=== PATIENT | male | born 1980 | race Caucasian/White ===

== ENCOUNTER 2018-11-11 00:06 | Inpatient (IN) | payer OTHER ==
[2018-11-11] VITALS (46 sets, daily range): BP systolic 77–128; BP diastolic 49–77; PULSE 85–126; RESP 6–20; Ht 175.3 cm; Wt 83.6 kg
[~2018-11-11] VITALS: Ht 175.3 cm; Wt 83.6 kg
[2018-11-11] MEDS ORDERED: ONDANSETRON 4 MG INJ IV STA (00:23)
[2018-11-11] MEDS ORDERED: morphine 4 MG/ML VIAL IV STA ×2 (00:23→01:14)
[2018-11-11] MEDS ORDERED: SOD CHLORIDE 0.9% 100 ML ONE (00:55)
[2018-11-11] MEDS ORDERED: IOHEXOL 100 ML ONE (00:55)
[2018-11-11] MEDS ORDERED: ETOMIDATE 20 MG INJ ONE (01:57)
[2018-11-11] MEDS ORDERED: PROPOFOL 100 ML ONE (02:09)
[2018-11-11] MEDS ORDERED: PROPOFOL 100 ML IV STA (02:09)
[2018-11-11] MEDS ORDERED: SODIUM CHLORIDE 0.9% 1L BAG IV* STA (02:24)
--- NOTE | 2018-11-11 02:24 | OPPN ---
Date/Time of Note Date/Time of Note DATE: 11/11/18 TIME: 02:18 Anesthesia Follow up Anesthesia Follow up Last documented vital signs Vital Signs Date Temp Pulse Resp B/P (MAP) Pulse Ox O2 O2 Flow FiO2 Time Delivery Rate 11/11/18 100.5 132 18 90/60 (70) 97 00:12 Respiratory function: WNL Cardiovascular function: WNL Comments Anesthesia was called for mdifficult intubation.Expanding neck hematoma after neck lift. pt has SOB, difficulty breathing. intubate by glidescope 4 ETT 7.5 pre o2, difficult to open the month.grade 4 , ETT was inserted BBB and co2 positive. VS stable JOSE RAUL OLIVARES MD Nov 11, 2018 02:24
--- NOTE | 2018-11-11 02:25 | OPPN ---
Date/Time of Note Date/Time of Note DATE: 11/11/18 TIME: 02:24 Event Note difficult intubation in ER. upper tooth chipped the top o f tooth over metal took off. cut my index finger. JOSE RAUL OLIVARES MD Nov 11, 2018 02:25
--- NOTE | 2018-11-11 02:42 | ERD ---
ER Documentation Chief Complaint Chief Complaint bleeding from s/p neck surgery HPI This is a 38-year-old male who presents to the emergency room for evaluation of bleeding from surgical wound. The patient states that he had a neck lift surgery done on October. He states that he had a done at [facility] and it was done by a plastic surgeon Dr. Deleon. He states that today he was at home and had a lot of pain that he noticed on the right jaw, he states that the pain started around 10 PM and he took a shower and when he was in the shower he noted a lot of bleeding from the suture site on the right. The patient then stated that his pain increased dramatically and he noticed a large amount of swelling on the right side of his face and came to the ER. The patient denies any fevers or chest pain or shortness of breath at this time. ROS All systems reviewed and are negative except as per history of present illness. Allergies Allergies: Coded Allergies: cephalexin (Verified Allergy, Unknown, 11/11/18) PMhx/Soc Medical and Surgical Hx: pt denies Medical Hx, pt denies Surgical Hx History of Surgery: No Anesthesia Reaction: No Hx Neurological Disorder: No Hx Respiratory Disorders: No Hx Cardiac Disorders: No Hx Psychiatric Problems: No Hx Miscellaneous Medical Probl: No Hx Alcohol Use: No Hx Substance Use: No Hx Tobacco Use: No Smoking Status: Never smoker Physical Exam Vitals Vital Signs Date Temp Pulse Resp B/P (MAP) Pulse Ox O2 O2 Flow FiO2 Time Delivery Rate 11/11/18 Nasal 02:31 Cannula 11/11/18 100.5 132 18 90/60 (70) 97 00:12 Physical Exam INITIAL VITAL SIGNS: Reviewed by me GENERAL: The patient is well developed male, moderate distress HEENT: Large right-sided submandibular hematoma with dehiscence of the wound noted at the posterior portion of the right ear, no pulsatile bleeding noted. Dry mucous membranes, pupils equal, round, and reactive to light. EOMI. There is no scleral icterus. NECK: C-spine is soft and supple, there is no meningismus. There is no cervical lymphadenopathy. LUNGS: Clear to auscultation bilaterally. There are no rales, wheezes or rhonchi. HEART: Tachycardic, no murmurs, clicks, rubs or gallops. ABDOMEN: Soft, non-tender, non-distended. There are bowel sounds in all four quadrants. No rebound or guarding. EXTREMITIES: There is no peripheral cyanosis or edema. No focal swelling or erythema. NEUROLOGICAL: The patient moves all four extremities with 5/5 strength. Cranial nerves II - XII are intact. Normal gait. Alert and oriented SKIN: There is no apparent rash or petechiae. HEME/LYMPHATIC: There is no evidence of excessive bruising or lymphedema. PSYCHIATRIC: The patient does not appear anxious or depressed. Result Diagram: 11/11/18 0000 11/11/18 0000 Results 24 hrs Laboratory Tests Test 11/11/18 00:00 White Blood Count 23.1 10^3/ul Red Blood Count 4.78 10^6/ul Hemoglobin 14.0 g/dl Hematocrit 43.9 % Mean Corpuscular Volume 91.8 fl Mean Corpuscular Hemoglobin 29.3 pg Mean Corpuscular Hemoglobin Concent 31.9 g/dl Red Cell Distribution Width 13.7 % Platelet Count 493 10^3/UL Mean Platelet Volume 8.9 fl Immature Granulocytes % 2.200 % Neutrophils % 66.9 % Lymphocytes % 15.6 % Monocytes % 14.1 % Eosinophils % 0.4 % Basophils % 0.8 % Nucleated Red Blood Cells % 0.0 /100WBC Immature Granulocytes # 0.520 10^3/ul Neutrophils # 15.5 10^3/ul Lymphocytes # 3.6 10^3/ul Monocytes # 3.3 10^3/ul Eosinophils # 0.1 10^3/ul Basophils # 0.2 10^3/ul Nucleated Red Blood Cells # 0.0 10^3/ul Prothrombin Time 11.3 Sec Prothrombin Time Ratio 0.9 INR International Normalized Ratio 0.81 Activated Partial Thromboplast Time 21.2 Sec Sodium Level 139 mmol/L Potassium Level 5.2 mmol/L Chloride Level 95 mmol/L Carbon Dioxide Level 31 mmol/L Anion Gap 13 Blood Urea Nitrogen 13 mg/dl Creatinine 1.09 mg/dl Est Glomerular Filtrat Rate mL/min > 60 mL/min Glucose Level 116 mg/dl Calcium Level 9.9 mg/dl Total Bilirubin 0.7 mg/dl Direct Bilirubin 0.00 mg/dl Indirect Bilirubin 0.7 mg/dl Aspartate Amino Transf (AST/SGOT) 88 IU/L Alanine Aminotransferase (ALT/SGPT) 104 IU/L Alkaline Phosphatase 74 IU/L Total Protein 7.9 g/dl Albumin 4.4 g/dl Globulin 3.50 g/dl Albumin/Globulin Ratio 1.25 Current Medications Medications Dose Sig/Nilo Start Time Status Last (Trade) Ordered Route PRN Stop Time Admin Dose Reason Admin Morphine 4 mg ONCE STAT 11/11/18 DC 11/11/18 Sulfate IV 00:23 01:02 (morphine) 11/11/18 00:25 Ondansetron 4 mg ONCE STAT 11/11/18 DC 11/11/18 HCl (Zofran IV 00:23 01:02 Inj) 11/11/18 00:25 IV Flush 10 ml STK-MED 11/11/18 DC (NS 10 ml) ONCE .ROUTE 00:55 11/11/18 00:56 Sodium 100 ml @ ud STK-MED 11/11/18 DC Chloride ONCE .ROUTE 00:55 11/11/18 00:56 Iohexol 100 ml @ ud STK-MED 11/11/18 DC ONCE .ROUTE 00:55 11/11/18 00:56 Morphine 4 mg ONCE STAT 11/11/18 DC 11/11/18 Sulfate IV 01:14 01:40 (morphine) 11/11/18 01:15 Etomidate 20 mg STK-MED 11/11/18 DC (Amidate) ONCE .ROUTE 01:57 11/11/18 01:58 Propofol 100 ml @ ud STK-MED 11/11/18 DC ONCE .ROUTE 02:09 11/11/18 02:10 Propofol 100 ml @ ONCE STAT 11/11/18 2.182 mls/ IV 02:09 hr 11/12/18 23:58 Sodium 1,000 ml @ [id number] IV 11/11/18 Chloride 80 mls/hr 02:20 40 mg DAILY@06 11/11/18 Pantoprazole IV 06:00 (Protonix Iv) Sodium 2,180 ml BOLUS OVER 2 11/11/18 DC Chloride HOURS STAT 02:24 (NS) IV* 11/11/18 02:25 Vancomycin VANCOMYCIN PER 11/11/18 HCl (Vanco PER PHARMACY PROTOCOL XX 04:00 Iv Per Pharmacy) Piperacillin 100 ml @ Q6 IVPB 11/11/18 UNV Sod/ 200 mls/hr 02:30 Tazobactam Sod Procedures/MDM CTA neck: 1. Extensive soft tissue collection compatible with a superficial subcutaneous hemorrhage tracking along the right neck from the level of the inferior inferiorly to the submandibular region to the left anterior body of the mandible with mass effect on adjacent structures. 2. Major arteries including the right common and internal carotid arteries are intact. Several peripheral branches of the right external carotid artery along the medial aspect of the collection. 3. There is hyperdense contrast extravasation along the medial margin of the collection extending to a superficial catheter adjacent to the right ear with appearance consistent with an open wound. Although there are peripheral branches of the external carotid artery abutting the hematoma, the IV contrast injection for the study was in the right upper extremity and there is reflux of hyperdense contrast superiorly into branches of the right external jugular vein along the medial aspect of the hematoma. Source of the hemorrhage may be due to a laceration of the branches of the external carotid artery versus the right external jugular vein. This 38-year-old male presents to the emergency room for evaluation of bleeding from the surgical site. The patient did have a cosmetic neck lift done on November [address] [place] [address] Deleon. On my exam the patient had a large hematoma on the right some mandibular region. The patient was complaining of a lot of pain, pill pair, and was tachycardic with dry mucous membranes. 2 IV lines were est ablished the patient was given IV fluids, he was given morphine for pain. I did try to get a hold of this patient's cosmetic surgeon, Dr. Deleon. We did call him and spoke to the nurse practitioner who was certified pediatric nurse practitioner. I did speak to her and her name was Lexis. I let her know that this patient was here and that he did have a large hematoma. She states that she will get in touch with Dr. Deleon and call us back. While we are awaiting callback from Dr. Deleon this patient began to complain of increasing pain and difficulty swallowing. The patient did have what appeared to be larger hematoma with some some pulsatile bleeding noted at the right external auditory canal. I did call anesthesia and Dr. Churchill was able for consult and did perform a bedside intubation using go. Please see procedure note. I was able to contact our ENT physician certified pediatric nurse practitioner Dr. Matute and explained that the patient does have a large expanding right-sided submandibular hematoma with difficulty swallowing and required intubation. He states that he will come evaluate the patient and likely take the patient to the operating room. Please see detail time sheets below. I was made aware that the patient has a slight fever, and a code sepsis was called. The patient was on broad- spectrum antibiotics. Hemoglobin is stable at this time, however the patient does have a white blood cell count greater than 20,000. This could be postsurgical or reactive or infectious 1242: Spoke to nurse practitioner Lexis and had notified her of the patient who is in the emergency room and notified her that we will need to speak to Dr. Deleon in regards to this postop complication 0141: Repeat page out to Dr. Deleon with no callback at this time 0150: Patient complaining of tightness and difficulty swallowing, I did note the hematoma was larger than when he arrived in the emergency room and there was now some pulsatile bleeding noted. The decision was made to intubate, anesthesia paged. She is aware and comfortable with her plan of care 0205: Patient intubated at bedside by 0207: Spoke with Dr. Kim who agrees to accept the patient for admission 0214: Spoke with Dr. Matute, ENT on-call physician, and have explained this patient's condition. He agrees to evaluate the patient and would like the senior data warehouse architect to call the operating room team to prepare the OR 0249: Patient's plastic surgeon Dr. Deleon was called back and he is aware now this patient condition and states that he will come evaluate the patient at the bedside. Critical Care: Excluding all billable procedures Time: 80 minutes Treatments/Evaluations: Close monitoring and treatment of unstable vital signs, cardiorespiratory, and neurologic status, while maintaining tight balance of fluid, respiratory, and cardiac interventions. Departure Diagnosis: Primary Impression: Hematoma of neck Additional Impressions: Postoperative complication SIRS (systemic inflammatory response syndrome) Condition: Critical JAYSHREEKENNYEssieGERASHWETA ACEVEDO Nov 11, 2018 02:42
--- NOTE | 2018-11-11 02:42 | HP ---
Date/Time of Note Date/Time of Note DATE: 11/11/18 TIME: 02:28 Assessment/Plan VTE Prophylaxis SCD applied (from Nsg): Yes Pharmacological prophylaxis: NA/contraindicated Pharm contraindication: low risk/ambulating Assessment/Plan Hospital Course This is a 38-year-old male being admitted to the ICU floor for: #1 postop neck hematoma with bleeding: Patient is postop from facelift procedure on 10/08/2018. Patient has significant neck swelling secondary to postop hematoma as well as bleeding. CT imaging showed subcutaneous hemorrhage tracking along the right neck. Please see CT scan for full details. Patient was emergently intubated by the anesthesiologist. ENT Dr. Matute was consulted and he will take the patient emergently to the OR. CTA neck: 1. Extensive soft tissue collection compatible with a superficial subcutaneous hemorrhage tracking along the right neck from the level of the inferior inferio rly to the submandibular region to the left anterior body of the mandible with mass effect on adjacent structures. 2. Major arteries including the right common and internal carotid arteries are intact. Several peripheral branches of the right external carotid artery along the medial aspect of the collection. 3. There is hyperdense contrast extravasation along the medial margin of the collection extending to a superficial catheter adjacent to the right ear with appearance consistent with an open wound. Although there are peripheral branches of the external carotid artery abutting the hematoma, the IV contrast injection for the study was in the right upper extremity and there is reflux of hyperdense contrast superiorly into branches of the right external jugular vein along the medial aspect of the hematoma. Source of the hemorrhage may be due to a laceration of the branches of the external carotid artery versus the right external jugular vein. #2 ventilatory dependent respiratory failure: Secondary to impending airway collapse from spending hematoma. Currently patient is intubated. Check serial ABGs. #3 sepsis: Secondary likely to underlying neck infection. Blood cultures x2, will check lactic acid level. Broad-spectrum antibiotics of vancomycin and Zosyn. #4 asthma: PRN nebs as needed #5 DVT GI prophylaxis: SCDs, Protonix Greater than 45 minutes critical time spent on care management patient Further treatment strategy will be implemented as per the clinical course. Result Diagram: 11/11/18 0000 11/11/18 0000 Results 24hrs Laboratory Tests Test 11/11/18 00:00 White Blood Count 23.1 H Red Blood Count 4.78 Hemoglobin 14.0 Hematocrit 43.9 Mean Corpuscular Volume 91.8 Mean Corpuscular Hemoglobin 29.3 Mean Corpuscular Hemoglobin Concent 31.9 L Red Cell Distribution Width 13.7 Platelet Count 493 H Mean Platelet Volume 8.9 Immature Granulocytes % 2.200 H Neutrophils % 66.9 Lymphocytes % 15.6 Monocytes % 14.1 H Eosinophils % 0.4 Basophils % 0.8 Nucleated Red Blood Cells % 0.0 Immature Granulocytes # 0.520 H Neutrophils # 15.5 H Lymphocytes # 3.6 H Monocytes # 3.3 H Eosinophils # 0.1 Basophils # 0.2 H Nucleated Red Blood Cells # 0.0 Prothrombin Time 11.3 L Prothrombin Time Ratio 0.9 INR International Normalized Ratio 0.81 Activated Partial Thromboplast Time 21.2 L Sodium Level 139 Potassium Level 5.2 H Chloride Level 95 L Carbon Dioxide Level 31 Anion Gap 13 Blood Urea Nitrogen 13 Creatinine 1.09 Est Glomerular Filtrat Rate mL/min > 60 Glucose Level 116 Calcium Level 9.9 Total Bilirubin 0.7 Direct Bilirubin 0.00 Indirect Bilirubin 0.7 Aspartate Amino Transf (AST/SGOT) 88 H Alanine Aminotransferase (ALT/SGPT) 104 H Alkaline Phosphatase 74 Total Protein 7.9 Albumin 4.4 Globulin 3.50 H Albumin/Globulin Ratio 1.25 HPI/ROS Admit Date/Time Admit Date/Time Hx of Present Illness Chief complaint: Left neck swelling, pop last night Following history was obtained from the ED physician documentation as I was unable to get it from the patient has he was intubated. This is a 38-year-old male who presented to the emergency department complaining of a pop in his neck that he fell at approximately 11 PM last night followed by neck swelling. Patient reported that he felt a pop and then he went back to sleep thinking that it would go away and then when he woke up with neck swelling and leaking from the surgery site on the right side of the neck. He had a surgery on November 05, 2018 at outpatient surgery center in [place] by the surgeon Dr. Deleon. He had a neck lift performed. When the patient arrived to the emergency department he was noted to be pale and diaphoretic. CT scan of his neck did show expanding hematoma of the neck please see the CT for further details. He was then examined by the emergency physician and he told the physician that he noticed increased swelling and difficulty swallowing. Decision was made to emergently intubate th e patient for airway protection. Anesthesia was called by the emergency department who intubated the patient successfully. Patient also was noted to have a fever as well as tachycardia and a code sepsis was called. Dr. Bustos he did speak to ENT research consultant who will be coming in to take the patient to the OR for emergent suegery. Allergies: Cephalexin Medications: Unknown ROS Subjective hx not possible: pt critical (Debated) PMH/Family/Social Past Medical History Asthma Medications Current Medications Propofol 100 ml @ 2.182 mls/ hr ONCE STAT IV ; Start 11/11/18 at 02:09; Stop 11/12/18 at 23:58 Sodium Chloride 1,000 ml @ 80 mls/hr [id number] IV ; Start 11/11/18 at 02:20; Status UNV Pantoprazole (Protonix Iv) 40 mg DAILY@06 IV ; Start 11/11/18 at 06:00; Status UNV Coded Allergies: cephalexin (Verified Allergy, Unknown, 11/11/18) Past Surgical History Sinus surgery, facelift on 11/05/at 17 Family History Significant Family History: no pertinent family hx Social History Smoking Status: Unknown if ever smoked Exam/Review of Systems Vital Signs Vitals Vital Signs Date Temp Pulse Resp B/P (MAP) Pulse Ox O2 O2 Flow FiO2 Time Delivery Rate 11/11/18 100.5 132 18 90/60 (70) 97 00:12 Exam Exam General: Currently intubated HEENT: Neck swelling noted greater on the right side, with bleeding, currently covered with dressing and gauze. Patient is currently intubated Neck: Significant swelling noted on the neck especially on the right side, with bleeding Chest: Nontender Lungs: Clear to auscultation bilaterally no crackles rales or wheezing Heart: Sinus tachycardia Abdomen: Soft , nontender, nondistended , bowel sounds are present. No guarding no rebound tenderness , No masses or organomegaly. No costovertebral temporal angle mass Extremities: Normal to inspection, no edema no cyanosis Neurologic: Normal mental status, speech normal, cranial nerves II through XII are intact, motor and sensory are intact, no focal weakness Additional Comments PROCEDURE: CT Angio Neck contrast. CLINICAL INDICATION: Status post face left. Expanding hematoma. TECHNIQUE: CT angiography of the neck was performed. High resolution serial axial CT images of the neck were obtained after the administration of 100 cc Omnipaque 350 IV contrast material. 3D, sagittal and coronal reconstruction images were produced. Exam CTDlvol = 34 mGy and DLP = 546 mGy-cm. One of the following 3 dose reduction techniques were used: Automated exposure control; adjustment of the mA and/or kV according to patient size; or use of iterative reconstruction technique. DICOM images are available. COMPARISON: None available FINDINGS: There is bandages overlying the right ureter external catheter along the anterior margin extending superiorly superficially above the upper extent of the examination. There is soft tissue infiltration and gas obstructing the periphery of the right external auditory canal. There is contiguous infiltration compatible with acute hemorrhage extending in the subcutaneous fat superficial to the right platysma study from the right. Inferiorly to the cyst submandibular region tracking to the left of midline. Maximal thickness of the superficial hemorrhage is 3.2 cm. There is contrast extravasation within the superior posterior medial aspect of the collection adjacent to the tear. Small amount of hyperdense material extends to the cutaneous surface with an air-fluid level suggestive of an old pin defect. A tract of the hyperdense contrast extravasation with scattered gas extends inferiorly to the level of the angle of the mandible. There are several small peripheral branches of the right external carotid artery immediately adjacent to the contrast extravasation. The contrast injection was in the right upper extremity and there is superior reflux into the right external jugular vein with hyperdense contrast material is seen on coronal images along the medial aspect of the contrast extravasation. There i s partial effacement and medial displacement of the right parotid gland. The right common and internal carotid arteries are normal in caliber. Carotid bifurcation is unremarkable. The right internal jugular vein is patent although mildly effaced. Left-sided vasculature and vertebral arteries are unremarkable. There is no significant mass effect of the nasal and oropharynx. Degenerative changes of the cervical spine are present. Osseous structures are otherwise unremarkable. IMPRESSION: 1. Extensive soft tissue collection compatible with a superficial subcutaneous hemorrhage tracking along the right neck from the level of the inferior inferiorly to the submandibular region to the left anterior body of the mandible with mass effect on adjacent structures. 2. Major arteries including the right common and internal carotid arteries are intact. Several peripheral branches of the right external carotid artery along the medial aspect of the collection. 3. There is hyperdense contrast extravasation along the medial margin of the collection extending to a superficial catheter adjacent to the right ear with appearance consistent with an open wound. Although there are peripheral branches of the external carotid artery abutting the hematoma, the IV contrast injection for the study was in the right upper extremity and there is reflux of hyperdense contrast superiorly into branches of the right external jugular vein along the medial aspect of the hematoma. Source of the hemorrhage may be due to a laceration of the branches of the external carotid artery versus the right external jugular vein. Critical findings reported to Dr. Fair on 11/11/2018 1:05:40 AM. RPTAT: HMVK .Will Meyers MD, MD Date Time Electronically viewed and signed by .Will Meyers MD, MD on 11/11/2018 01:34 .K/ CC: MCKENNA FAIR DO [id number] HERMAN SEARS Nov 11, 2018 02:39
[2018-11-11] MEDS ORDERED: VANCOMYCIN HCL 1.5 GM in SOD CHLORIDE 0.9% 250 ML IVPB SCH (03:00)
[2018-11-11] MEDS: PIPER-TAZO 3.375 GM IV (PMX) 100 ML IVPB SCH ×4 (03:20→17:29)
--- NOTE | 2018-11-11 03:23 | HPN ---
Date/Time of Note Date/Time of Note DATE: 11/11/18 TIME: 03:23 Interval H&P Admission Note Pt. seen H&P reviewed: No system changes AMBROCIO HERNANDEZ MD Nov 11, 2018 03:23
[2018-11-11] MEDS ORDERED: FENTAnyl (DRIP) 1000 mcg/100mL 100 ML IV ONE (03:30)
[2018-11-11] MEDS ORDERED: DIPHTH/TET/ACEL PERTUSS (ADULT) 0.5 ML VIAL IM* ONE (03:30)
--- NOTE | 2018-11-11 03:51 | PREAC ---
Date/Time of Note Date/Time of Note DATE: 11/11/18 TIME: 03:40 Anesthesia Eval and Record Evaluation Time Pre-Procedure Interview DATE: 11/11/18 TIME: 03:40 Age 38 Sex male NPO: Other (unknown. patient currently intubated, sedated) Preoperative diagnosis neck hematoma Planned procedure evacuation of neck hematoma, control of bleeding in neck Past Medical History Past Medical History: Includes (neck hematoma ) Pulm: Asthma Infection(s): Other (possible neck infection) Surgery & Anesthesia Issues No known issue Meds Anticoagulation: No Beta Bull within 24 hr: No Reason Beta Bull not given: Pt. not on B-Bull Current Medications Propofol 100 ml @ 2.182 mls/ hr ONCE STAT IV Last administered on 11/11/18at 02:09; Admin Dose 2.182 MLS/HR; Start 11/11/18 at 02:09; Stop 11/12/18 at 23:58 Sodium Chloride 1,000 ml @ 80 mls/hr [id number] IV ; Start 11/11/18 at 02:20 Pantoprazole (Protonix Iv) 40 mg DAILY@06 IV ; Start 11/11/18 at 06:00 Vancomycin HCl (Vanco Iv Per Pharmacy) VANCOMYCIN PER PHARMACY PER PROTOCOL XX ; Start 11/11/18 at 04:00 Piperacillin Sod/ Tazobactam Sod 100 ml @ 200 mls/hr Q6 IVPB Last administered on 11/11/18at 03:20; Admin Dose 200 MLS/HR; Start 11/11/18 at 02:30 Vancomycin HCl 1.5 gm/Sodium Chloride 250 ml @ 83.333 mls/ hr ONCE IVPB ; Start 11/11/18 at 03:00; Stop 11/11/18 at 05:59 Fentanyl 100 ml @ 2.5 mls/hr TITRATE ONCE IV ; Start 11/11/18 at 03:30; Stop 11/12/18 at 19:29 Meds reviewed: Yes Allergies Coded Allergies: cephalexin (Verified Allergy, Unknown, 11/11/18) Allergies Reviewed: Yes Labs/Studies Labs Reviewed: Reviewed by anesthesiologist Result Diagram: 11/11/18 0248 11/11/18 0248 Laboratory Tests 11/11/18 02:48 Blood Bank Test 11/11/18 00:20 Antibody Screen NEGATIVE Blood Type O POSITIVE test: N/A Studies: ECG (sinus tachycardia 102) Pre-procedure Exam Last vitals Vital Signs Date Temp Pulse Resp B/P (MAP) Pulse Ox O2 O2 Flow FiO2 Time Delivery Rate 11/11/18 Nasal 02:31 Cannula 11/11/18 106 14 100 50 02:30 11/11/18 130/88 01:00 (102) 11/11/18 100.5 00:12 Airway: Adequate mouth opening (patient currently intubated with large neck hematoma ) Mallampati: Mallampati II (unable to assess as patient intubated) Teeth: Abnormal (tooth was chipped during intubation ) Lung: Normal Heart: Normal ASA Physical Status ASA physical status: 3 Emergency: E Planned Anesthetic General/MAC: ETT (currently intubated ) Planned Pain Management Parenteral pain med Pre-operative Attestations Prior to commencing anesthesia and surgery, the patient was re-evaluated, there was verification of: *The patient's identity *The results of appropriate recent lab work and preoperative vital signs *The above evaluation not changing prior to induction Expanding neck hematoma. patient is intubated and sedated. Unable to consent patient and no family available to obtain consent from. However, need to proceed with emergency surgery SHERI ZARATE MD Nov 11, 2018 03:50
[2018-11-11] MEDS ORDERED: VANCOMYCIN IV PER PHARMACY XX SCH (04:00)
[2018-11-11] MEDS ORDERED: NA BICARBONATE 8.4% 50 ML SYG ONE (04:27)
[2018-11-11] MEDS ORDERED: ROCURONIUM 50 MG INJ ONE (04:27)
[2018-11-11] MEDS ORDERED: ONDANSETRON 4 MG INJ ONE (04:29)
[2018-11-11] MEDS ORDERED: FAMOTIDINE 20 MG INJ ONE (04:29)
[2018-11-11] MEDS ORDERED: DEXAMETHASONE 4 MG/ML 5 ML INJ ONE (04:29)
[2018-11-11] MEDS ORDERED: PHENYLephrine (100 MCG/ML) 5ML SYG ONE (04:51)
[2018-11-11] MEDS ORDERED: NEOMYC/POLYMYX/BACIT 30 GM OINT ONE (05:19)
[2018-11-11] MEDS ORDERED: FENTAnyl 50 MCG/ML VIAL ONE (05:23)
[2018-11-11] MEDS ORDERED: HYDROmorphONE 0.5 MG/0.5 ML SYG IV PRN (05:30)
[2018-11-11] MEDS ORDERED: FENTAnyl 50 MCG/ML VIAL IV PRN (05:30)
[2018-11-11] MEDS ORDERED: ALBUTEROL 0.083% (NEB) 2.5 MG/3 ML AMP HHN PRN (05:30)
[2018-11-11] MEDS ORDERED: ONDANSETRON 4 MG INJ IV PRN (05:30)
[2018-11-11] MEDS ORDERED: PROPOFOL 100 ML IV ONE (05:30)
[2018-11-11] MEDS ORDERED: EPHEDrine SULFATE 50 MG/5 ML SYG IV PRN (05:30)
--- NOTE | 2018-11-11 05:57 | SIPON ---
Date/Time of Note Date/Time of Note DATE: 11/11/18 TIME: 05:55 Operative Report Preoperative Diagnosis Postoperative hematoma secondary to face and neck lift Postoperative Diagnosis Same Operation/Procedure Performed 1. Control of postoperative hemorrhage 2. Evacuation of neck hematoma 3. Complex closure of bilateral neck and face incisions Surgeon see signature line warehouse administrative assistant None Anesthesia: general Estimated blood loss: 10 - 50 ml's Transfusion Required none Specimen None Grafts/Implants none Complications none AMBROCIO HERNANDEZ MD Nov 11, 2018 05:57
[2018-11-11] MEDS ORDERED: PANTOPRAZOLE 40 MG INJ IV SCH (06:00)
--- NOTE | 2018-11-11 06:06 | OPR ---
Date/Time of Note Date/Time of Note DATE: 11/11/18 TIME: 05:58 Operative Report Procedure Date: Nov 11, 2018 Preoperative Diagnosis 1. Hematoma and active hemorrhage of postoperative neck and face wounds 2. Status post face/neck lift Postoperative Diagnosis Same Operation/Procedure Performed 1. Evacuation of bilateral neck and face hematomas 2. Control of postoperative hemorrhage of neck 3. Complex closure of bilateral face and neck incisions Surgeon see signature line Parachute Mender None Anesthesia Type: general Estimated Blood Loss: 10 - 50 ml's Transfusion none Specimen None Grafts/Implants none Tubes/Drains Bilateral 10 flat MISHA drains Complications none Pt Condition Post Procedure: stable Disposition: other (ICU) Indications The patient is a 38-year-old male who is 5 days postop from a face and neck lift by Dr. Familia Deleon. Late last evening he felt a "pop"and then experienced progressive swelling of the right neck and face. He came to the emergency department at [facility]. He was found to have respiratory distress and was intubated in the emergency room. I was called to emergently address the patient. A 2 physician consent was obtained due to the emergent nature of the disease process. Procedure Description The patient was brought back to the operating suite already intubated. Both necks and face were prepped and draped in the usual sterile fashion. The entire right neck wound had already been dehisced opened and a portion of the left neck wound was dehisced. Approximately 200 cc of blood clot were then removed from the right neck. The area was inspected and numerous small venous bleeding sites were encountered. These were cauterized with bipolar cautery. Care was taken not to violate the platysma layer when cauterizing so as to avoid injury to any facial nerve branches. No arterial bleeding was encountered. The area was then irrigated profusely with saline bilaterally. The area was evaluated for approximately 20 minutes and no bleeding was encountered. I then placed two 10 flat MISHA drains one on each side. Complex closure was then performed bilaterally. 3-0 Vicryl suture was used to reapproximate the flaps and 5-0 nylon was used in a combination of interrupted and running fashion to close all of the incisions. Antibiotic ointment and a pressure dressing was placed. The patient was then brought to the ICU in stable condition. AMBROCIO HERNANDEZ MD Nov 11, 2018 06:06
[2018-11-11] MEDS: SOD CHLORIDE 0.9% 1,000 ML IV SCH ×3 (06:17→19:47)
--- NOTE | 2018-11-11 06:27 | PAC ---
Date/Time of Note Date/Time of Note DATE: 11/11/18 TIME: 06:24 Post-Anesthesia Notes Post-Anesthesia Note Last documented vital signs Vital Signs Date Temp Pulse Resp B/P (MAP) Pulse Ox O2 O2 Flow FiO2 Time Delivery Rate 11/11/18 91 15.0 04:15 11/11/18 108 22 122/66 Mechanica 03:30 (84) l Ventilato r 11/11/18 50 02:30 11/11/18 100.5 00:12 Activity: WNL Respiratory function: Other (intubated) Cardiovascular function: WNL Mental status: Other (sedated ) Pain reasonably controlled: Yes Hydration appropriate: Yes Nausea/Vomiting absent: Yes Comments BP: 122/68 HR: 99 RR: 16 T: 99.4 SaO2: 100% SHERI ZARATE MD Nov 11, 2018 06:27
[2018-11-11] MEDS ORDERED: HYDROmorphONE 1 MG/ML SYG IV ONE (06:30)
[2018-11-11] MEDS ORDERED: HYDROmorphONE 1 MG/ML SYG ONE (06:31)
[2018-11-11] MEDS: PROPOFOL 100 ML IV SCH ×4 (06:41→18:30)
[2018-11-11] MEDS ORDERED: SUCCINYLCHOLINE CHLORIDE 100 MG/5 ML SYG IV ONE (07:00)
[2018-11-11] MEDS ORDERED: PROPOFOL 200 MG INJ ONE (07:00)
--- NOTE | 2018-11-11 07:50 | CONS ---
Assessment/Plan Assessment/Plan Hospital Course (Demo Recall) 1) facial/neck hematoma doubt there is an active infection but will need to treat for possible infection at this time agree with vanco/zosyn at present nasal swal for MRSA has been ordered will get cx from R facial MISHA drain elevated temp and WBC could be due to just the hematoma 2) hematuria with lee only draining blood await urology to re-position lee urine cx has been ordered Consultation Date/Type/Reason Admit Date/Time Date of Consultation: Nov 11, 2018 Type of Consult ID Date/Time of Note DATE: 11/11/18 TIME: 07:41 Hx of Present Illness pt was admitted due to R facial swelling pt had facelift surgery on 11/05/18 on 11/10 pt heard a pop and then started to developed R facial swelling he states he had a slight cough with slight phlegm no V, D 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 pt had to be emergently intubated and had emergent surgery where several sites of bleeding from venous sources were found and cauterized no pus was found according to the report pt had developed tarsha blood in the urine lee catheter and bladder scan reveals an enlarged bladder hx is limited due to pt being intubated pt denied taking motrin, advil or aspirin Past Medical History asthma Medications Current Medications Sodium Chloride 1,000 ml @ 80 mls/hr [id number] IV Last administered on 11/11/18at 06:17; Admin Dose 80 MLS/HR; Start 11/11/18 at 02:20 Pantoprazole (Protonix Iv) 40 mg DAILY@06 IV Last administered on 11/11/18at 06: 34; Admin Dose 40 MG; Start 11/11/18 at 06:00 Vancomycin HCl (Vanco Iv Per Pharmacy) VANCOMYCIN PER PHARMACY PER PROTOCOL XX ; Start 11/11/18 at 04:00 Piperacillin Sod/ Tazobactam Sod 100 ml @ 200 mls/hr Q6 IVPB Last administered on 11/11/18at 06:35; Admin Dose 200 MLS/HR; Start 11/11/18 at 02:30 Fentanyl 100 ml @ 2.5 mls/hr TITRATE ONCE IV ; Start 11/11/18 at 03:30; Stop 11/12/18 at 19:29 Hydromorphone HCl (Dilaudid) 0.4 mg ICU RECOVERY PRN IV PAIN; Start 11/11/18 at 05:30; Stop 11/11/18 at 09:00 Fentanyl (Sublimaze) 25 mcg ICU RECOVERY PRN IV PAIN; Start 11/11/18 at 05:30; Stop 11/11/18 at 09:00 Ondansetron HCl (Zofran Inj) 4 mg ICU RECOVERY PRN IV NAUSEA/VOMITING; Start 11/11/18 at 05:30; Stop 11/11/18 at 09:00 Ephedrine Sulfate 5 mg ICU RECOVERY PRN IV MAP LESS THAN 60; Start 11/11/18 at 05:30; Stop 11/11/18 at 09:00 Albuterol (Proventil 0.083% (Neb)) 2.5 mg ICU RECOVERY PRN HHN .WHEEZING; Start 11/11/18 at 05:30; Stop 11/11/18 at 09:00 Propofol 100 ml @ 2.182 mls/ hr Q12H IV Last administered on 11/11/18at 06:41; Admin Dose 21.819 MLS/HR; Start 11/11/18 at 06:30 Lorazepam (Ativan) 2 mg Q4 PRN IV ANXIETY; Start 11/11/18 at 06:30 Allergies: Coded Allergies: cephalexin (Verified Allergy, Unknown, 11/11/18) Social History Smoking Status: Unknown if ever smoked Exam/Review of Systems Exam Vitals Vital Signs Date Temp Pulse Resp B/P (MAP) Pulse Ox O2 O2 Flow FiO2 Time Delivery Rate 11/11/18 99.4 06:02 11/11/18 121 05:58 11/11/18 15 100 50 05:50 11/11/18 15.0 04:15 11/11/18 122/66 Mechanical 03:30 (84) Ventilator Intake and Output 11/10/18 11/10/18 11/11/18 1515:00 23:00 07:00 IntakeIntake Total 2800 ml OutputOutput Total 50 ml BalanceBalance 2750 ml Constitutional: alert Eyes: nl sclera ENMT: other (pt's neck and cheeks are bandaged) Respiratory: clear to auscultation Cardiovascular: regular rate and rhythm Gastrointestinal: distended, tender Extremities: other (no swelling) Results Result Diagram: 11/11/18 0659 11/11/18 0248 Results 24hrs Laboratory Tests Test 11/11/18 00:00 11/11/18 02:48 11/11/18 06:59 White Blood Count 23.1 H 16.8 #H 23.2 #H Red Blood Count 4.78 3.41 #L 3.36 L Hemoglobin 14.0 10.2 #L 9.9 L Hematocrit 43.9 32.7 #L 31.5 L Mean Corpuscular Volume 91.8 95.9 93.8 Mean Corpuscular Hemoglobin 29.3 29.9 29.5 Mean Corpuscular Hemoglobin Concent 31.9 L 31.2 L 31.4 L Red Cell Distribution Width 13.7 13.9 14.3 Platelet Count 493 H 324 # 341 Mean Platelet Volume 8.9 9.2 9.1 Immature Granulocytes % 2.200 H 1.700 H 1.900 H Neutrophils % 66.9 70.4 Lymphocytes % 15.6 12.7 L Monocytes % 14.1 H 14.4 H Eosinophils % 0.4 0.3 Basophils % 0.8 0.5 Nucleated Red Blood Cells % 0.0 0.0 0.0 Immature Granulocytes # 0.520 H 0.280 H 0.450 H Neutrophils # 15.5 H 11.8 H Lymphocytes # 3.6 H 2.1 Monocytes # 3.3 H 2.4 H Eosinophils # 0.1 0.1 Basophils # 0.2 H 0.1 Nucleated Red Blood Cells # 0.0 0.0 Prothrombin Time 11.3 L 13.2 13.4 Prothrombin Time Ratio 0.9 1.0 1.0 INR International Normalized Ratio 0.81 0.99 1.01 Activated Partial Thromboplast Time 21.2 L 23.3 25.5 Sodium Level 139 138 Potassium Level 5.2 H 6.0 H Chloride Level 95 L 107 # Carbon Dioxide Level 31 23 Anion Gap 13 8 Blood Urea Nitrogen 13 12 Creatinine 1.09 0.94 Est Glomerular Filtrat Rate mL/min > 60 > 60 Glucose Level 116 86 Calcium Level 9.9 7.6 L Total Bilirubin 0.7 0.3 Direct Bilirubin 0.00 0.00 Indirect Bilirubin 0.7 0.3 Aspartate Amino Transf (AST/SGOT) 88 H 50 H Alanine Aminotransferase (ALT/SGPT) 104 H 73 H Alkaline Phosphatase 74 51 Total Protein 7.9 5.4 #L Albumin 4.4 2.9 #L Globulin 3.50 H 2.50 Albumin/Globulin Ratio 1.25 1.16 Hepatitis B Surface Antigen NEGATIVE Hepatitis B Surface Antibody POSITIVE H Hepatitis C Antibody NEGATIVE HIV (1&2) Antibody NEGATIVE Lactic Acid Level 2.6 *H Troponin I < 0.012 Medications Medication Current Medications Sodium Chloride 1,000 ml @ 80 mls/hr [id number] IV Last administered on 11/11/18at 06:17; Admin Dose 80 MLS/HR; Start 11/11/18 at 02:20 Pantoprazole (Protonix Iv) 40 mg DAILY@06 IV Last administered on 11/11/18at 06:34; Admin Dose 40 MG; Start 11/11/18 at 06:00 Vancomycin HCl (Vanco Iv Per Pharmacy) VANCOMYCIN PER PHARMACY PER PROTOCOL XX ; Start 11/11/18 at 04:00 Piperacillin Sod/ Tazobactam Sod 100 ml @ 200 mls/hr Q6 IVPB Last administered on 11/11/18at 06:35; Admin Dose 200 MLS/HR; Start 11/11/18 at 02:30 Fentanyl 100 ml @ 2.5 mls/hr TITRATE ONCE IV ; Start 11/11/18 at 03:30; Stop 11/12/18 at 19:29 Hydromorphone HCl (Dilaudid) 0.4 mg ICU RECOVERY PRN IV PAIN; Start 11/11/18 at 05:30; Stop 11/11/18 at 09:00 Fentanyl (Sublimaze) 25 mcg ICU RECOVERY PRN IV PAIN; Start 11/11/18 at 05:30; Stop 11/11/18 at 09:00 Ondansetron HCl (Zofran Inj) 4 mg ICU RECOVERY PRN IV NAUSEA/VOMITING; Start 11/11/18 at 05:30; Stop 11/11/18 at 09:00 Ephedrine Sulfate 5 mg ICU RECOVERY PRN IV MAP LESS THAN 60; Start 11/11/18 at 05:30; Stop 11/11/18 at 09:00 Albuterol (Proventil 0.083% (Neb)) 2.5 mg ICU RECOVERY PRN HHN .WHEEZING; Start 11/11/18 at 05:30; Stop 11/11/18 at 09:00 Propofol 100 ml @ 2.182 mls/ hr Q12H IV Last administered on 11/11/18at 06:41; Admin Dose 21.819 MLS/HR; Start 11/11/18 at 06:30 Lorazepam (Ativan) 2 mg Q4 PRN IV ANXIETY; Start 11/11/18 at 06:30 OMAIRA FLYNN MD Nov 11, 2018 07:50
--- NOTE | 2018-11-11 08:26 | CONS ---
Assessment/Plan Assessment/Plan Hospital Course (Demo Recall) 38-year-old male underwent 1. Evacuation of bilateral neck and face hematomas 2. Control of postoperative hemorrhage of neck 3. Complex closure of bilateral face and neck incisions Patient did have neck and face left about 6 days ago. He presented to the emergency room with swelling of his neck and underwent the above procedure. In the emergency room they inserted a Paredes catheter and when the patient was transferred to the ICU after his surgery his Paredes catheter was noted to be draining blood therefore a urological consultation was requested. Presently the patient is intubated and is on a respirator but he is awake and follows commands. I did review his history and his medical record. On the examination the bladder is distended up to the umbilicus. The Paredes catheter that he had was not all the way inside the bladder with the balloon inflated in the urethra. Therefore I went ahead and remove the Paredes catheter then to prep the genital area and draped it in a sterile way. I injected 20 mL of 2% lidocaine jelly for local anesthesia then I tried to insert the 16 [place] coud catheter but that would not go in as it was going in the same false passage that was created by the traumatic insertion of the prior catheter. Then I tried a 14 Nigerien coud catheter and after some manipulation I was able to get it into the bladder. The balloon was inflated with 10 mm of sterile water and the catheter connected to a drainage bag. As of now drained thousand mL. Recommend to keep the Paredes catheter in place for now and he may have some bleeding around it which is expected. Once he is fully awake and stable then one could take the catheter out and see if he does urinate on his own. He is already covered with antibiotic. Consultation Date/Type/Reason Admit Date/Time November 11, 2018 Date of Consultation: Nov 11, 2018 Type of Consult Urology Reason for Consultation Paredes catheter draining blood Requesting Provider: HERMAN SEARS Date/Time of Note DATE: 11/11/18 TIME: 08:14 Hx of Present Illness 38-year-old male underwent 1. Evacuation of bilateral neck and face hematomas 2. Control of postoperative hemorrhage of neck 3. Complex closure of bilateral face and neck incisions Patient did have neck and face left about 6 days ago. He presented to the emerg ency room with swelling of his neck and underwent the above procedure. In the emergency room they inserted a Paredes catheter and when the patient was transferred to the ICU after his surgery his Paredes catheter was noted to be draining blood therefore a urological consultation was requested. Presently the patient is intubated and is on a respirator but he is awake and follows commands. I did review his history and his medical record. Constitutional: no complaints Eyes: no complaints ENT: other (As per history of present illness) Respiratory: other (Patient is on a respirator) Cardiovascular: No chest pain Gastrointestinal: No no complaints Genitourinary: bleeding Musculoskeletal: no complaints Skin: other (As per history of present illness) Neurologic: no complaints Endocrine: no complaints Lymphatic: no complaints Psychological: no complaints Immunologic: no complaints Past Medical History Medical History: no pertinent history Medications Current Medications Sodium Chloride 1,000 ml @ 80 mls/hr [id number] IV Last administered on 11/11/18at 06:17; Admin Dose 80 MLS/HR; Start 11/11/18 at 02:20 Pantoprazole (Protonix Iv) 40 mg DAILY@06 IV Last administered on 11/11/18at 06:34; Admin Dose 40 MG; Start 11/11/18 at 06:00 Vancomycin HCl (Vanco Iv Per Pharmacy) VANCOMYCIN PER PHARMACY PER PROTOCOL XX ; Start 11/11/18 at 04:00 Piperacillin Sod/ Tazobactam Sod 100 ml @ 200 mls/hr Q6 IVPB Last administered on 11/11/18at 06:35; Admin Dose 200 MLS/HR; Start 11/11/18 at 02:30 Fentanyl 100 ml @ 2.5 mls/hr TITRATE ONCE IV Last administered on 11/11/18at 07:41; Admin Dose 2.5 MLS/HR; Start 11/11/18 at 03:30; Stop 11/12/18 at 19:29 Hydromorphone HCl (Dilaudid) 0.4 mg ICU RECOVERY PRN IV PAIN; Start 11/11/18 at 05:30; Stop 11/11/18 at 09:00 Fentanyl (Sublimaze) 25 mcg ICU RECOVERY PRN IV PAIN; Start 11/11/18 at 05:30; Stop 11/11/18 at 09:00 Ondansetron HCl (Zofran Inj) 4 mg ICU RECOVERY PRN IV NAUSEA/VOMITING; Start 11/11/18 at 05:30; Stop 11/11/18 at 09:00 Ephedrine Sulfate 5 mg ICU RECOVERY PRN IV MAP LESS THAN 60; Start 11/11/18 at 05:30; Stop 11/11/18 at 09:00 Albuterol (Proventil 0.083% (Neb)) 2.5 mg ICU RECOVERY PRN HHN .WHEEZING; Start 11/11/18 at 05:30; Stop 11/11/18 at 09:00 Propofol 100 ml @ 2.182 mls/ hr Q12H IV Last administered on 11/11/18at 06:41; Admin Dose 21.819 MLS/HR; Start 11/11/18 at 06:30 Lorazepam (Ativan) 2 mg Q4 PRN IV ANXIETY; Start 11/11/18 at 06:30 Allergies: Coded Allergies: cephalexin (Verified Allergy, Unknown, 11/11/18) Past Surgical History Past Surgical Hx: other (His recent neck and face left complicated by bleeding and surgery earlier this morning to drain the hematomas and repair the wounds) Social History Smoking Status: Unknown if ever smoked Exam/Review of Systems Exam Vitals Vital Signs Date Temp Pulse Resp B/P (MAP) Pulse Ox O2 O2 Flow FiO2 Time Delivery Rate 11/11/18 120 13 103/71 100 Mechanical 07:45 (82) Ventilator 11/11/18 99.4 06:02 11/11/18 50 05:50 11/11/18 15.0 04:15 Intake and Output 11/10/18 11/10/18 11/11/18 1515:00 23:00 07:00 IntakeIntake Total 2800 ml OutputOutput Total 50 ml BalanceBalance 2750 ml Constitutional: alert Psych: no complaints Head: other (His face is all covered with the bandage from the surgery) ENMT: intubated Neck: other (All covered with the dressing from the recent surgery) Respiratory: other (Patient on a respirator and is intubated) Cardiovascular: regular rate and rhythm Gastrointestinal: soft, other Genitourinary - Male: other (Has a Paredes catheter that is not inside the bladder and draining a blood. Balloon inflated in the urethra) Musculoskeletal: nl extremities to inspection Extremities: No calf tenderness Neurological: nl mental status Skin: nl turgor Results Result Diagram: 11/11/18 0659 11/11/18 0659 Results 24hrs Laboratory Tests Test 11/11/18 00:00 11/11/18 02:48 11/11/18 06:59 White Blood Count 23.1 H 16.8 #H 23.2 #H Red Blood Count 4.78 3.41 #L 3.36 L Hemoglobin 14.0 10.2 #L 9.9 L Hematocrit 43.9 32.7 #L 31.5 L Mean Corpuscular Volume 91.8 95.9 93.8 Mean Corpuscular Hemoglobin 29.3 29.9 29.5 Mean Corpuscular Hemoglobin Concent 31.9 L 31.2 L 31.4 L Red Cell Distribution Width 13.7 13.9 14.3 Platelet Count 493 H 324 # 341 Mean Platelet Volume 8.9 9.2 9.1 Immature Granulocytes % 2.200 H 1.700 H 1.900 H Neutrophils % 66.9 70.4 Lymphocytes % 15.6 12.7 L Monocytes % 14.1 H 14.4 H Eosinophils % 0.4 0.3 Basophils % 0.8 0.5 Nucleated Red Blood Cells % 0.0 0.0 0.0 Immature Granulocytes # 0.520 H 0.280 H 0.450 H Neutrophils # 15.5 H 11.8 H Lymphocytes # 3.6 H 2.1 Monocytes # 3.3 H 2.4 H Eosinophils # 0.1 0.1 Basophils # 0.2 H 0.1 Nucleated Red Blood Cells # 0.0 0.0 Prothrombin Time 11.3 L 13.2 13.4 Prothrombin Time Ratio 0.9 1.0 1.0 INR International Normalized Ratio 0.81 0.99 1.01 Activated Partial Thromboplast Time 21.2 L 23.3 25.5 Sodium Level 139 138 139 Potassium Level 5.2 H 6.0 H 4.6 Chloride Level 95 L 107 # 108 Carbon Dioxide Level 31 23 24 Anion Gap 13 8 7 Blood Urea Nitrogen 13 12 11 Creatinine 1.09 0.94 0.82 Est Glomerular Filtrat Rate mL/min > 60 > 60 > 60 Glucose Level 116 86 116 Calcium Level 9.9 7.6 L 7.0 L Total Bilirubin 0.7 0.3 Direct Bilirubin 0.00 0.00 Indirect Bilirubin 0.7 0.3 Aspartate Amino Transf (AST/SGOT) 88 H 50 H Alanine Aminotransferase (ALT/SGPT) 104 H 73 H Alkaline Phosphatase 74 51 Total Protein 7.9 5.4 #L Albumin 4.4 2.9 #L Globulin 3.50 H 2.50 Albumin/Globulin Ratio 1.25 1.16 Hepatitis B Surface Antigen NEGATIVE Hepatitis B Surface Antibody POSITIVE H Hepatitis C Antibody NEGATIVE HIV (1&2) Antibody NEGATIVE Lactic Acid Level 2.6 *H 2.8 *H Troponin I < 0.012 Medications Medication Current Medications Sodium Chloride 1,000 ml @ 80 mls/hr [id number] IV Last administered on 11/11/18at 06:17; Admin Dose 80 MLS/HR; Start 11/11/18 at 02:20 Pantoprazole (Protonix Iv) 40 mg DAILY@06 IV Last administered on 11/11/18at 06:34; Admin Dose 40 MG; Start 11/11/18 at 06:00 Vancomycin HCl (Vanco Iv Per Pharmacy) VANCOMYCIN PER PHARMACY PER PROTOCOL XX ; Start 11/11/18 at 04:00 Piperacillin Sod/ Tazobactam Sod 100 ml @ 200 mls/hr Q6 IVPB Last administered on 11/11/18at 06:35; Admin Dose 200 MLS/HR; Start 11/11/18 at 02:30 Fentanyl 100 ml @ 2.5 mls/hr TITRATE ONCE IV Last administered on 11/11/18at 07:41; Admin Dose 2.5 MLS/HR; Start 11/11/18 at 03:30; Stop 11/12/18 at 19:29 Hydromorphone HCl (Dilaudid) 0.4 mg ICU RECOVERY PRN IV PAIN; Start 11/11/18 at 05:30; Stop 11/11/18 at 09:00 Fentanyl (Sublimaze) 25 mcg ICU RECOVERY PRN IV PAIN; Start 11/11/18 at 05:30; Stop 11/11/18 at 09:00 Ondansetron HCl (Zofran Inj) 4 mg ICU RECOVERY PRN IV NAUSEA/VOMITING; Start 11/11/18 at 05:30; Stop 11/11/18 at 09:00 Ephedrine Sulfate 5 mg ICU RECOVERY PRN IV MAP LESS THAN 60; Start 11/11/18 at 05:30; Stop 11/11/18 at 09:00 Albuterol (Proventil 0.083% (Neb)) 2.5 mg ICU RECOVERY PRN HHN .WHEEZING; Start 11/11/18 at 05:30; Stop 11/11/18 at 09:00 Propofol 100 ml @ 2.182 mls/ hr Q12H IV Last administered on 11/11/18at 06:41; Admin Dose 21.819 MLS/HR; Start 11/11/18 at 06:30 Lorazepam (Ativan) 2 mg Q4 PRN IV ANXIETY; Start 11/11/18 at 06:30 JANIE ARANDA MD Nov 11, 2018 08:26
--- NOTE | 2018-11-11 10:04 | CONS ---
DATE OF ADMISSION: 11/11/2018 DATE OF CONSULTATION: REASON FOR CONSULTATION: Ventilator management. Thank you, Dr. Kim, for this consultation. HISTORY OF PRESENT ILLNESS: This is a 38-year-old gentleman who has had recent plastic surgery to hi s face, presented with a popping sensation in his neck with increased swelling in addition to being p concepcion and diaphoretic. He was found to have expanding hematoma and subsequently required emergent intu bation and was taken to OR immediately with decompression of a hematoma and drainage placement. Subs equently, placed on mechanical ventilation overnight. PAST MEDICAL HISTORY: As above. MEDICATIONS: Per chart. ALLERGIES: KEFLEX. SOCIAL HISTORY: Nonsmoker, no alcohol, no history of drug use. FAMILY HISTORY: Noncontributory. SYSTEMS REVIEW: A 12-point review of systems currently unable to perform. PHYSICAL EXAMINATION: GENERAL: Well-nourished, well-developed gentleman, orally intubated on mechanical ventilation. VITAL SIGNS: Currently afebrile, pulse is 110, blood pressure 103/71, O2 saturation 96 on FIO2 50%. SKIN: He has significant bandages around his face and significant neck edema. CARDIAC: S1, S2, no added sounds or murmurs. Tachycardia. CHEST: Diminished air entry bilaterally. No rales or wheezes. ABDOMEN: Soft, nontender. No guarding or rebound. EXTREMITIES: No cyanosis, clubbing, 1+ edema. NEUROLOGIC: No focal deficits. LABORATORY DATA: White count 23.2, hemoglobin 9.9, platelets of 341. BUN 11, creatinine 0.82. INR was 1.01. Arterial blood gas this morning, pH 7.33, pCO2 of 45, pO2 157, bicarbonate 23. DIAGNOSTIC DATA: Chest x-ray shows left lower lobe atelectasis. IMPRESSION AND PLAN: 1. Recent neck lift with significant subcutaneous hemorrhage resulting in severe sepsis and airway c ompression with respiratory distress. Now status post decompression and evacuation of hematoma with drains in place, on mechanical ventilation with severe sepsis. The patient will require: 1. Continue postoperative antibiotics per infectious diseases. Currently on vancomycin and Zosyn. 2. Continue mechanical ventilation until decreased upper airway edema and safe airway. 3. Place a nasogastric tube to start tube feeding. 4. DVT and GI prophylaxis. Dictated By: TRENT INGRAM/JESICA Conf#: [id number] [facility]#: [id number] CC: HERMAN KIM MD; KRISTIAN HARRIS MD;*[facility]*
--- NOTE | 2018-11-11 10:09 | PN ---
Date/Time of Note Date/Time of Note DATE: 11/11/18 TIME: 09:56 Assessment/Plan VTE Prophylaxis Risk score (from [facility] [place])>0 risk: 6 SCD applied (from [facility] [place]): Yes Pharmacological prophylaxis: NA/contraindicated Pharm contraindication: bleeding, surgical contra Lines/Catheters IV Catheter Type (from [facility]): Peripheral IV Assessment/Plan Hospital Course 38-year-old male who presented to the emergency department complaining of a pop in his neck followed by neck swelling 6 days after cosmetic neck surgery. was found to have a rapidly expanding Hematoma and active hemorrhage of postoperative neck and face wounds and was propylactically intubated in ER and then taken to the OR for urgent evacuation of bilateral neck and face hematomas and control of postoperative hemorrhage of neck . He is stable now and managed in the ICU as follows: 1. Acute resp failure (prophylactic, but may also have aspirated): remains vent dependent -2/ #2 -continue vent support and weaning -pulm consulted 2. rapidly expanding Hematoma and active hemorrhage of postoperative neck and face wounds status post face/neck lift 11/05/18 -patient is now s/p evacuation of bilateral neck and face hematomas and control of postoperative hemorrhage of neck 11/11/[address] Matute -continue to avoid anticoagulation until cleared by surgery -post op wound mgt per surgery 3. SIRS with lactic acidosis -likely reactive -f/u cultures, if negative consider d/c abx, ID also following, follow recs -patient may have also aspirated -monitor fever curve, CXR as needed -trend lactic acid levels 4. Anemia -likely blood loss -no indication for transfusion for now -trend, intervene as tolerated Dispo: -Continue ICU supportive care -care time >40 mins Result Diagram: 11/11/1859 11/11/1859 Results 24hrs Laboratory Tests Test 11/11/18 00:00 11/11/18 02:48 11/11/18 06:59 11/11/18 07:49 White Blood Count 23.1 H 16.8 #H 23.2 #H Red Blood Count 4.78 3.41 #L 3.36 L Hemoglobin 14.0 10.2 #L 9.9 L Hematocrit 43.9 32.7 #L 31.5 L Mean Corpuscular 91.8 95.9 93.8 Volume Mean Corpuscular 29.3 29.9 29.5 Hemoglobin Mean Corpuscular 31.9 L 31.2 L 31.4 L Hemoglobin Concen t Red Cell 13.7 13.9 14.3 Distribution Width Platelet Count 493 H 324 # 341 Mean Platelet 8.9 9.2 9.1 Volume Immature 2.200 H 1.700 H 1.900 H Granulocytes % Neutrophils % 66.9 70.4 Lymphocytes % 15.6 12.7 L Monocytes % 14.1 H 14.4 H Eosinophils % 0.4 0.3 Basophils % 0.8 0.5 Nucleated Red 0.0 0.0 0.0 Blood Cells % Immature 0.520 H 0.280 H 0.450 H Granulocytes # Neutrophils # 15.5 H 11.8 H Lymphocytes # 3.6 H 2.1 Monocytes # 3.3 H 2.4 H Eosinophils # 0.1 0.1 Basophils # 0.2 H 0.1 Nucleated Red 0.0 0.0 Blood Cells # Prothrombin Time 11.3 L 13.2 13.4 Prothrombin Time 0.9 1.0 1.0 Ratio INR International 0.81 0.99 1.01 Normalized Ratio Activated 21.2 L 23.3 25.5 Partial Thrombopl ast Time Sodium Level 139 138 139 Potassium Level 5.2 H 6.0 H 4.6 Chloride Level 95 L 107 # 108 Carbon Dioxide 31 23 24 Level Anion Gap 13 8 7 Blood Urea 13 12 11 Nitrogen Creatinine 1.09 0.94 0.82 Est Glomerular > 60 > 60 > 60 Filtrat Rate mL/min Glucose Level 116 86 116 Calcium Level 9.9 7.6 L 7.0 L Total Bilirubin 0.7 0.3 Direct Bilirubin 0.00 0.00 Indirect 0.7 0.3 Bilirubin Aspartate Amino 88 H 50 H Transf (AST/SGOT) Alanine 104 H 73 H Aminotransferase (ALT/SGPT) Alkaline 74 51 Phosphatase Total Protein 7.9 5.4 #L Albumin 4.4 2.9 #L Globulin 3.50 H 2.50 Albumin/Globulin 1.25 1.16 Ratio Hepatitis B NEGATIVE Surface Antigen Hepatitis B POSITIVE H Surface Antibody Hepatitis C NEGATIVE Antibody HIV (1&2) NEGATIVE Antibody Lactic Acid Level 2.6 *H 2.8 *H Troponin I < 0.012 Segmented 66 Neutrophils % (Manual) Band Neutrophils 17 H % (Manual) Lymphocytes % 7 L (Manual) Monocytes % 6 (Manual) Basophils % 1 (Manual) Metamyelocytes % 2 H (manual) Myelocytes % 1 H (Manual) Neutrophils # 16.2 H (Manual) Band Neutrophils 3.9 H # Lymphocytes 1.6 (Manual) Monocytes # 1.3 H (Manual) Basophils # 0.2 H (Manual) Metamyelocytes # 0.4 H Myelocytes # 0.2 H Platelet Estimate NORMAL Polychromasia 1+ Poikilocytosis 1+ Anisocytosis 1+ Microcytosis 1+ Macrocytosis 1+ Ovalocytes 1+ Blood Gas Blood arterial Specimen Source Arterial Blood 11/11/2018 8:25:1 Date Drawn 7 AM Arterial Blood pH 7.331 L (Temp corrected) Arterial Blood 45.3 H pCO2 (Temp correct) Arterial Blood 157.0 H pO2 (Temp corrected) Arterial Blood 23.4 HCO3 Arterial Blood -2.5 Base Excess Arterial Blood 98.4 H Oxygen Saturation Mack Test ACCEPTAB Arterial Blood Right Radial Gas Puncture Site Arterial 0.3 Blood Carboxyhemo globin Arterial Blood 0.3 Methemoglobin Blood Gas A-a O2 148.5 H Differential Oxyhemoglobin 97.8 Percent Blood Gas 37.0 Temperature Blood Gas 14.0 Respiration Rate Blood Gas Actual 14 Respiration Rate Blood Gas VENT - AC Modality FiO2 50.0 Blood Gas Tidal 600.0 Volume Blood Gas Low 5.0 PEEP Setting Blood Gas TM Notified Whom Blood Gas 11/11/2018 8:34:5 Notified Time 6 AM Exam/Review of Systems Exam Vitals Vital Signs Date Temp Pulse Resp B/P (MAP) Pulse Ox O2 O2 Flow FiO2 Time Delivery Rate 11/11/18 50 08:00 11/11/18 123 08:00 11/11/18 13 103/71 100 Mechanical 07:45 (82) Ventilator 11/11/18 99.4 06:02 11/11/18 15.0 04:15 Intake and Output 11/10/18 11/10/18 11/11/18 1515:00 23:00 07:00 IntakeIntake Total 2800 ml OutputOutput Total 50 ml BalanceBalance 2750 ml Results Results 24hrs Laboratory Tests Test 11/11/18 00:00 11/11/18 02:48 11/11/18 06:59 11/11/18 07:49 White Blood Count 23.1 H 16.8 #H 23.2 #H Red Blood Count 4.78 3.41 #L 3.36 L Hemoglobin 14.0 10.2 #L 9.9 L Hematocrit 43.9 32.7 #L 31.5 L Mean Corpuscular 91.8 95.9 93.8 Volume Mean Corpuscular 29.3 29.9 29.5 Hemoglobin Mean Corpuscular 31.9 L 31.2 L 31.4 L Hemoglobin Concen t Red Cell 13.7 13.9 14.3 Distribution Width Platelet Count 493 H 324 # 341 Mean Platelet 8.9 9.2 9.1 Volume Immature 2.200 H 1.700 H 1.900 H Granulocytes % Neutrophils % 66.9 70.4 Lymphocytes % 15.6 12.7 L Monocytes % 14.1 H 14.4 H Eosinophils % 0.4 0.3 Basophils % 0.8 0.5 Nucleated Red 0.0 0.0 0.0 Blood Cells % Immature 0.520 H 0.280 H 0.450 H Granulocytes # Neutrophils # 15.5 H 11.8 H Lymphocytes # 3.6 H 2.1 Monocytes # 3.3 H 2.4 H Eosinophils # 0.1 0.1 Basophils # 0.2 H 0.1 Nucleated Red 0.0 0.0 Blood Cells # Prothrombin Time 11.3 L 13.2 13.4 Prothrombin Time 0.9 1.0 1.0 Ratio INR International 0.81 0.99 1.01 Normalized Ratio Activated 21.2 L 23.3 25.5 Partial Thrombopl ast Time Sodium Level 139 138 139 Potassium Level 5.2 H 6.0 H 4.6 Chloride Level 95 L 107 # 108 Carbon Dioxide 31 23 24 Level Anion Gap 13 8 7 Blood Urea 13 12 11 Nitrogen Creatinine 1.09 0.94 0.82 Est Glomerular > 60 > 60 > 60 Filtrat Rate mL/min Glucose Level 116 86 116 Calcium Level 9.9 7.6 L 7.0 L Total Bilirubin 0.7 0.3 Direct Bilirubin 0.00 0.00 Indirect 0.7 0.3 Bilirubin Aspartate Amino 88 H 50 H Transf (AST/SGOT) Alanine 104 H 73 H Aminotransferase (ALT/SGPT) Alkaline 74 51 Phosphatase Total Protein 7.9 5.4 #L Albumin 4.4 2.9 #L Globulin 3.50 H 2.50 Albumin/Globulin 1.25 1.16 Ratio Hepatitis B NEGATIVE Surface Antigen Hepatitis B POSITIVE H Surface Antibody Hepatitis C NEGATIVE Antibody HIV (1&2) NEGATIVE Antibody Lactic Acid Level 2.6 *H 2.8 *H Troponin I < 0.012 Segmented 66 Neutrophils % (Manual) Band Neutrophils 17 H % (Manual) Lymphocytes % 7 L (Manual) Monocytes % 6 (Manual) Basophils % 1 (Manual) Metamyelocytes % 2 H (manual) Myelocytes % 1 H (Manual) Neutrophils # 16.2 H (Manual) Band Neutrophils 3.9 H # Lymphocytes 1.6 (Manual) Monocytes # 1.3 H (Manual) Basophils # 0.2 H (Manual) Metamyelocytes # 0.4 H Myelocytes # 0.2 H Platelet Estimate NORMAL Polychromasia 1+ Poikilocytosis 1+ Anisocytosis 1+ Microcytosis 1+ Macrocytosis 1+ Ovalocytes 1+ Blood Gas Blood arterial Specimen Source Arterial Blood 11/11/2018 8:25:1 Date Drawn 7 AM Arterial Blood pH 7.331 L (Temp corrected) Arterial Blood 45.3 H pCO2 (Temp correct) Arterial Blood 157.0 H pO2 (Temp corrected) Arterial Blood 23.4 HCO3 Arterial Blood -2.5 Base Excess Arterial Blood 98.4 H Oxygen Saturation Mack Test ACCEPTAB Arterial Blood Right Radial Gas Puncture Site Arterial 0.3 Blood Carboxyhemo globin Arterial Blood 0.3 Methemoglobin Blood Gas A-a O2 148.5 H Differential Oxyhemoglobin 97.8 Percent Blood Gas 37.0 Temperature Blood Gas 14.0 Respiration Rate Blood Gas Actual 14 Respiration Rate Blood Gas VENT - AC Modality FiO2 50.0 Blood Gas Tidal 600.0 Volume Blood Gas Low 5.0 PEEP Setting Blood Gas TM Notified Whom Blood Gas 11/11/2018 8:34:5 Notified Time 6 AM Medications Medication Current Medications Sodium Chloride 1,000 ml @ 80 mls/hr [id number] IV Last administered on 11/11/18at 06:17; Admin Dose 80 MLS/HR; Start 11/11/18 at 02:20 Pantoprazole (Protonix Iv) 40 mg DAILY@06 IV Last administered on 11/11/18at 06:34; Admin Dose 40 MG; Start 11/11/18 at 06:00 Vancomycin HCl (Vanco Iv Per Pharmacy) VANCOMYCIN PER PHARMACY PER PROTOCOL XX ; Start 11/11/18 at 04:00 Piperacillin Sod/ Tazobactam Sod 100 ml @ 200 mls/hr Q6 IVPB Last administered on 11/11/18at 06:35; Admin Dose 200 MLS/HR; Start 11/11/18 at 02:30 Fentanyl 100 ml @ 2.5 mls/hr TITRATE ONCE IV Last administered on 11/11/18at 07:41; Admin Dose 2.5 MLS/HR; Start 11/11/18 at 03:30; Stop 11/12/18 at 19:29 Propofol 100 ml @ 2.508 mls/ hr Q12H IV Last administered on 11/11/18at 09:32; Admin Dose 25.08 MLS/HR; Start 11/11/18 at 06:30 Lorazepam (Ativan) 2 mg Q4 PRN IV ANXIETY; Start 11/11/18 at 06:30 Fentanyl 100 ml @ 2.5 mls/hr TITRATE IV ; Start 11/11/18 at 09:00 KRISTIAN HARRIS Nov 11, 2018 10:06
[2018-11-11] MEDS: MIDAZOLAM (DRIP) 50 mg/50 mL 50 ML IV SCH ×2 (16:13→21:37)
[2018-11-11] MEDS: FENTAnyl (DRIP) 1000 mcg/100mL 100 ML IV SCH (16:17)
[2018-11-11] MEDS: VANCOMYCIN HCL 1.5 GM in SOD CHLORIDE 0.9% 250 ML IVPB SCH (16:17)
[2018-11-11] MEDS: DOCUSATE SODIUM 100 MG CAP PO SCH (22:07)
[2018-11-11] MEDS: FAMOTIDINE 20 MG INJ IV SCH (22:07)
[2018-11-12] VITALS (55 sets, daily range): BP systolic 87–129; BP diastolic 46–89; PULSE 70–103; RESP 11–17
[2018-11-12] MEDS: PIPER-TAZO 3.375 GM IV (PMX) 100 ML IVPB SCH ×5 (01:05→23:55)
[2018-11-12] MEDS: MIDAZOLAM (DRIP) 50 mg/50 mL 50 ML IV SCH ×5 (01:18→23:55)
[2018-11-12] MEDS: VANCOMYCIN HCL 1.5 GM in SOD CHLORIDE 0.9% 250 ML IVPB SCH ×2 (03:24→15:05)
[2018-11-12] MEDS: FENTAnyl (DRIP) 1000 mcg/100mL 100 ML IV SCH ×2 (03:33→15:00)
[2018-11-12] MEDS: PROPOFOL 100 ML IV SCH ×2 (06:30→07:48)
--- NOTE | 2018-11-12 06:45 | CONS ---
Assessment/Plan Assessment/Plan Hospital Course (Demo Recall) 1) facial/neck hematoma doubt there is an active infection but will need to treat for possible infection at this time agree with vanco/zosyn at present nasal swal for MRSA has been ordered will get cx from R facial MISHA drain elevated temp and WBC could be due to just the hematoma 11/12 - continue with vanco/zosyn at present R facial drain is NGTD blood cx have GPC present, ID is pending 2) hematuria with lee only draining blood await urology to re-position lee urine cx has been ordered 11/12 - u/a just shows hematuria, doubt there is an active infection in urine lee has clear urine currently 3) GPC in blood cx 11/12 - await ID, on vanco if staph aureus will re-do blood cx tomorrow Consultation Date/Type/Reason Admit Date/Time Nov 11, 2018 at 02:25 Initial Consult Date 11/11/18 Type of Consult ID Requesting Provider: HERMAN SEARS Date/Time of Note DATE: 11/12/18 TIME: 06:38 24 HR Interval Summary Free Text/Dictation pt got lee and it is now draining clear fluid NGT in place for feeds c/o nausea and some abd pain no diarrhea remains intubated Exam/Review of Systems Exam Vitals Vital Signs Date Temp Pulse Resp B/P (MAP) Pulse Ox O2 O2 Flow FiO2 Time Delivery Rate 11/12/18 82 14 103/62 100 Mechanical 06:00 (76) Ventilator 11/12/18 40 04:29 11/12/18 98.5 04:00 11/11/18 15.0 04:15 Intake and Output 11/11/18 11/11/18 11/12/18 1515:00 23:00 07:00 IntakeIntake Total 1223.092 ml 1568.096 ml 280 ml OutputOutput Total 2100 ml 800 ml 590 ml BalanceBalance -876.908 ml 768.096 ml -310 ml Constitutional: alert Eyes: nl sclera ENMT: intubated, other (swelling of neck below bandaging no redness) Respiratory: clear to auscultation Cardiovascular: regular rate and rhythm Gastrointestinal: distended, tender, other (BS present) Results Result Diagram: 11/11/18 0659 11/11/18 0659 Results 24hrs Laboratory Tests Test 11/11/18 06:59 11/11/18 07:49 11/11/18 09:30 11/11/18 10:42 White Blood 23.2 #H Count Red Blood Count 3.36 L Hemoglobin 9.9 L Hematocrit 31.5 L Mean 93.8 Corpuscular Volume Mean 29.5 Corpuscular Hemoglobin Mean 31.4 L Corpuscular Hemoglobin Conc ent Red Cell 14.3 Distribution Width Platelet Count 341 Mean Platelet 9.1 Volume Immature 1.900 H Granulocytes % Neutrophils % Segmented 66 Neutrophils % (Manual) Band 17 H Neutrophils % (Manual) Lymphocytes % Lymphocytes % 7 L (Manual) Monocytes % Monocytes % 6 (Manual) Eosinophils % Basophils % Basophils % 1 (Manual) Metamyelocytes 2 H % (manual) Myelocytes % 1 H (Manual) Nucleated Red 0.0 Blood Cells % Immature 0.450 H Granulocytes # Neutrophils # Neutrophils # 16.2 H (Manual) Band 3.9 H Neutrophils # Lymphocytes 1.6 (Manual) Lymphocytes # Monocytes # Monocytes # 1.3 H (Manual) Eosinophils # Basophils # Basophils # 0.2 H (Manual) Metamyelocytes 0.4 H # Myelocytes # 0.2 H Nucleated Red Blood Cells # Platelet NORMAL Estimate Polychromasia 1+ Poikilocytosis 1+ Anisocytosis 1+ Microcytosis 1+ Macrocytosis 1+ Ovalocytes 1+ Prothrombin 13.4 Time Prothrombin 1.0 Time Ratio INR 1.01 International Normalized Rati o Activated 25.5 Partial Thrombo plast Time Sodium Level 139 Potassium Level 4.6 Chloride Level 108 Carbon Dioxide 24 Level Anion Gap 7 Blood Urea 11 Nitrogen Creatinine 0.82 Est Glomerular > 60 Filtrat Rate mL/min Glucose Level 116 Lactic Acid 2.8 *H Level Calcium Level 7.0 L Blood Gas Blood arterial Specimen Source Arterial Blood 11/11/2018 8:25: Date Drawn 17 AM Arterial Blood 7.331 L pH (Temp corrected ) Arterial Blood 45.3 H pCO2 (Temp correct) Arterial Blood 157.0 H pO2 (Temp corrected ) Arterial Blood 23.4 HCO3 Arterial Blood -2.5 Base Excess Arterial Blood 98.4 H Oxygen Saturati on Mack Test ACCEPTAB Arterial Blood Right Radial Gas Puncture Site Arterial 0.3 Blood Carboxyhe moglobin Arterial Blood 0.3 Methemoglobin Blood Gas A-a 148.5 H O2 Differential Oxyhemoglobin 97.8 Percent Blood Gas 37.0 Temperature Blood Gas 14.0 Respiration Rate Blood Gas 14 Actual Respiration Rat e Blood Gas VENT - AC Modality FiO2 50.0 Blood Gas Tidal 600.0 Volume Blood Gas Low 5.0 PEEP Setting Blood Gas TM Notified Whom Blood Gas 11/11/2018 8:34: Notified Time 56 AM Urine Color YELLOW Urine Clarity SLIGHTLY CLOUD Y A Urine pH 5.0 Urine Specific 1.029 Jenners Urine Ketones NEGATIVE Urine Nitrite NEGATIVE Urine Bilirubin NEGATIVE Urine NEGATIVE Urobilinogen Urine Leukocyte NEGATIVE Esterase Urine > 182 H Microscopic RBC Urine 2 Microscopic WBC Urine 3+ H Hemoglobin Urine Glucose NEGATIVE Urine Total NEGATIVE Protein Ionized Calcium 0.9 L (Measured) Test 11/12/18 04:50 11/12/18 05:15 11/12/18 05:16 Lab Scanned BLOOD TRANSFUSI Report ON Lactic Acid 1.6 Level White Blood Pending Count Red Blood Count Pending Hemoglobin Pending Hematocrit Pending Mean Pending Corpuscular Volume Mean Pending Corpuscular Hemoglobin Mean Pending Corpuscular Hemoglobin Conc ent Red Cell Pending Distribution Width Platelet Count Pending Mean Platelet Pending Volume Medications Medication Current Medications Sodium Chloride 1,000 ml @ 100 mls/hr Q10H IV Last administered on 11/11/18at 19:47; Admin Dose 100 MLS/HR; Start 11/11/18 at 02:20 Vancomycin HCl (Vanco Iv Per Pharmacy) VANCOMYCIN PER PHARMACY PER PROTOCOL XX ; Start 11/11/18 at 04:00 Piperacillin Sod/ Tazobactam Sod 100 ml @ 200 mls/hr Q6 IVPB Last administered on 11/12/18at 06:06; Admin Dose 200 MLS/HR; Start 11/11/18 at 02:30 Propofol 100 ml @ 2.508 mls/ hr Q12H IV Last administered on 11/11/18at 12:23; Admin Dose 25.08 MLS/HR; Start 11/11/18 at 06:30 Lorazepam (Ativan) 2 mg Q4 PRN IV ANXIETY; Start 11/11/18 at 06:30 Fentanyl 100 ml @ 2.5 mls/hr TITRATE IV Last administered on 11/12/18at 03:33; Admin Dose 10 MLS/HR; Start 11/11/18 at 09:00 Famotidine (Pepcid Iv) 20 mg BID IV Last administered on 11/11/18at 22:07; Admin Dose 20 MG; Start 11/11/18 at 21:00 Ondansetron HCl (Zofran Inj) 4 mg Q6H PRN IV NAUSEA AND/OR VOMITING; Start 11/11/18 at 10:30 Docusate Sodium (Colace) 100 mg BID PO Last administered on 11/11/18at 22:07; Admin Dose 100 MG; Start 11/11/18 at 21:00 Vancomycin HCl 1.5 gm/Sodium Chloride 250 ml @ 83.333 mls/ hr Q12H IVPB Last administered on 11/12/18 03:24; Admin Dose 83.333 MLS/HR; Start 11/11/18 at 15:00 Midazolam HCl 50 ml @ 1 mls/hr TITRATE IV Last administered on 11/12/18 06:03; Admin Dose 10 MLS/HR; Start 11/11/18 at 16:00 OMAIRA FLYNN MD Nov 12, 2018 06:44
[2018-11-12] MEDS: ONDANSETRON 4 MG INJ IV PRN (06:48)
[2018-11-12] MEDS: DOCUSATE SODIUM 100 MG CAP PO SCH ×2 (08:55→21:53)
[2018-11-12] MEDS: FAMOTIDINE 20 MG INJ IV SCH ×2 (08:55→21:53)
--- NOTE | 2018-11-12 09:06 | CONS ---
Consult Date/Type/Reason Admit Date/Time Nov 11, 2018 at 02:25 Initial Consult Date 11/11/18 Type of Consult Pulmonary Requesting Provider: HERMAN SEARS Date/Time of Note DATE: 11/12/18 TIME: 09:04 Subjective Cuff leak test performed. No significant leak noted. Patient remains awake alert and oriented. Objective Vital Signs Date Temp Pulse Resp B/P (MAP) Pulse Ox O2 O2 Flow FiO2 Time Delivery Rate 11/12/18 82 14 103/62 100 Mechanical 06:00 (76) Ventilator 11/12/18 40 04:29 11/12/18 98.5 04:00 11/11/18 15.0 04:15 Intake and Output 11/11/18 11/11/18 11/12/18 1515:00 23:00 07:00 IntakeIntake Total 1223.092 ml 1568.096 ml 1132 ml OutputOutput Total 2100 ml 800 ml 590 ml BalanceBalance -876.908 ml 768.096 ml 542 ml Exam PHYSICAL EXAMINATION: GENERAL: Well-nourished, well-developed gentleman, orally intubated on mechanical ventilation. VITAL SIGNS: SKIN: He has significant bandages around his face and significant neck edema. MISHA drains in place CARDIAC: S1, S2, no added sounds or murmurs. Tachycardia. CHEST: Diminished air entry bilaterally. No rales or wheezes. ABDOMEN: Soft, nontender. No guarding or rebound. EXTREMITIES: No cyanosis, clubbing, 1+ edema. NEUROLOGIC: No focal deficits. Vent Setting Ventilator Support Mode: AC Fraction of Inspired Oxygen pe: 40 Positive End Expiratory Pressu: 5.0 Results/Medications Result Diagram: 11/12/18 0621 11/12/18 0515 Results 24 hrs Laboratory Tests Test 11/11/18 09:30 11/11/18 10:42 11/12/18 04:50 11/12/18 05:15 Urine Color YELLOW Urine Clarity SLIGHTLY CLOUDY A Urine pH 5.0 Urine Specific 1.029 [place] Urine Ketones NEGATIVE Urine Nitrite NEGATIVE Urine Bilirubin NEGATIVE Urine NEGATIVE Urobilinogen Urine Leukocyte NEGATIVE Esterase Urine > 182 H Microscopic RBC Urine 2 Microscopic WBC Urine 3+ H Hemoglobin Urine Glucose NEGATIVE Urine Total NEGATIVE Protein Ionized Calcium 0.9 L (Measured) Lab Scanned BLOOD TRANSFUS Report ION Sodium Level 138 Potassium Level 3.8 Chloride Level 106 Carbon Dioxide 29 Level Anion Gap 3 L Blood Urea 16 Nitrogen Creatinine 0.86 Est Glomerular > 60 Filtrat Rate mL/min Glucose Level 110 Lactic Acid 1.6 Level Calcium Level 7.2 L Phosphorus 3.3 Level Magnesium Level 2.4 Test 11/12/18 06:21 11/12/18 07:00 White Blood 13.0 #H Count Red Blood Count 2.09 #L Hemoglobin 6.3 #*L Hematocrit 19.4 #L Mean 92.8 Corpuscular Volume Mean 30.1 Corpuscular Hemoglobin Mean 32.5 Corpuscular Hemoglobin Conc ent Red Cell 13.9 Distribution Width Platelet Count 237 # Mean Platelet 9.2 Volume Immature 2.100 H Granulocytes % Neutrophils % 70.9 Lymphocytes % 13.0 L Monocytes % 13.7 H Eosinophils % 0.1 Basophils % 0.2 Nucleated Red 0.0 Blood Cells % Immature 0.270 H Granulocytes # Neutrophils # 9.2 H Lymphocytes # 1.7 Monocytes # 1.8 H Eosinophils # 0.0 Basophils # 0.0 Nucleated Red 0.0 Blood Cells # Blood Gas Blood arterial Specimen Source Arterial Blood 11/12/2018 6:58: Date Drawn 03 AM Arterial Blood 7.437 pH (Temp corrected ) Arterial Blood 46.8 H pCO2 (Temp correct) Arterial Blood 146.8 H pO2 (Temp corrected ) Arterial Blood 30.9 H HCO3 Arterial Blood 6.1 H Base Excess Arterial Blood 98.4 H Oxygen Saturati on Mack Test ACCEPTAB Arterial Blood Right Radial Gas Puncture Site Arterial 0.3 Blood Carboxyhe moglobin Arterial Blood 0.6 Methemoglobin Blood Gas A-a 84.6 H O2 Differential Oxyhemoglobin 97.5 Percent Blood Gas 37.0 Temperature Blood Gas 14.0 Respiration Rate Blood Gas 15 Actual Respiration Rat e Blood Gas VENT - AC Modality FiO2 40.0 Blood Gas Tidal 600.0 Volume Blood Gas Low 5.0 PEEP Setting Blood Gas TM Notified Whom Blood Gas 11/12/2018 7:26: Notified Time 40 AM Medications Current Medications Sodium Chloride 1,000 ml @ 100 mls/hr Q10H IV Last administered on 11/11/18at 19:47; Admin Dose 100 MLS/HR; Start 11/11/18 at 02:20 Vancomycin HCl (Vanco Iv Per Pharmacy) VANCOMYCIN PER PHARMACY PER PROTOCOL XX ; Start 11/11/18 at 04:00 Piperacillin Sod/ Tazobactam Sod 100 ml @ 200 mls/hr Q6 IVPB Last administered on 11/12/18 06:06; Admin Dose 200 MLS/HR; Start 11/11/18 at 02:30 Propofol 100 ml @ 2.508 mls/ hr Q12H IV Last administered on 11/12/18 07:48; Admin Dose 1.003 MLS/HR; Start 11/11/18 at 06:30 Lorazepam (Ativan) 2 mg Q4 PRN IV ANXIETY; Start 11/11/18 at 06:30 Fentanyl 100 ml @ 2.5 mls/hr TITRATE IV Last administered on 11/12/18at 03:33; Admin Dose 10 MLS/HR; Start 11/11/18 at 09:00 Famotidine (Pepcid Iv) 20 mg BID IV Last administered on 11/11/18 22:07; Admin Dose 20 MG; Start 11/11/18 at 21:00 Ondansetron HCl (Zofran Inj) 4 mg Q6H PRN IV NAUSEA AND/OR VOMITING Last administered on 11/12/18 06:48; Admin Dose 4 MG; Start 11/11/18 at 10:30 Docusate Sodium (Colace) 100 mg BID PO Last administered on 11/11/18 22:07; Admin Dose 100 MG; Start 11/11/18 at 21:00 Vancomycin HCl 1.5 gm/Sodium Chloride 250 ml @ 83.333 mls/ hr Q12H IVPB Last administered on 11/12/18 03:24; Admin Dose 83.333 MLS/HR; Start 11/11/18 at 15:00 Midazolam HCl 50 ml @ 1 mls/hr TITRATE IV Last administered on 11/12/18 06:03; Admin Dose 10 MLS/HR; Start 11/11/18 at 16:00 Calcium Gluconate 2 gm/Dextrose 120 ml @ 60 mls/hr ONCE ONCE IVPB ; Start 11/12/18 at 10:00; Stop 11/12/18 at 11:59 Assessment/Plan Hospital Course (Demo Recall) IMPRESSION 1. Recent neck lift with significant subcutaneous hemorrhage resulting in severe sepsis and airway compression with respiratory distress. Now status post decompression and evacuation of hematoma with drains in place, on mechanical ventilation with severe sepsis. 2. Anemia secondary to above 3. Extrinsic airway occlusion with minimal cuff leak noted. Plan 1. Continue postoperative antibiotics per infectious diseases. Currently on vancomycin and Zosyn. 2. Continue mechanical ventilation until decreased upper airway edema and safe airway. Not safe to extubate today 3. Continue nasogastric tube feeding 4. DVT and GI prophylaxis. 5. Transfuse 1 unit packed red blood cells monitor H&H Critical care time 40 minutes. TRENT GARCIA MD, [facility] Nov 12, 2018 09:05
--- NOTE | 2018-11-12 09:59 | PN ---
Date/Time of Note Date/Time of Note DATE: 11/12/18 TIME: 09:17 Assessment/Plan VTE [place]axis [place] [facility] [place]: 6 [place] [facility] [place] Yes Pharmacological prophylaxis: NA/contraindicated Pharm contraindication: bleeding Lines/Catheters IV Catheter Type (from [facility]): Peripheral IV Assessment/Plan Hospital Course 38-year-old male who presented to the emergency department complaining of a pop in his neck followed by neck swelling 6 days after cosmetic neck surgery. was found to have a rapidly expanding Hematoma and active hemorrhage of postoperative neck and face wounds and was prophylactically intubated in ER and then taken to the OR for urgent evacuation of bilateral neck and face hematomas and control of postoperative hemorrhage of neck . He is stable now and managed in the ICU as follows: 1. Acute resp failure (prophylactic, but may also have aspirated): remains vent dependent -2/ #2 -continue vent support possible weaning today 2. Rapidly expanding Hematoma and active hemorrhage of postoperative neck and face wounds status post face/neck lift 11/05/18 -possible vascular injury from CT -hgb dropped again today, no stain on dressing, f/u repeat H / H -patient is now s/p evacuation of bilateral neck and face hematomas and control of postoperative hemorrhage of neck 11/11/[address] Matute -continue to avoid anticoagulation until cleared by surgery -post op wound mgt per surgery -continue drain 3. SIRS with lactic acidosis: improved -likely reactive -, if negative consider d/c abx, ID also following, follow recs -patient may have also aspirated -monitor fever curve, CXR as needed -lactic acid trended to normal 4. Anemia -hgb dropping, down to 6.3, repeat, if <7.5, transfuse 2 units of PRBC -if patient is still dropping, we need to notify ENT Dispo: -Continue ICU supportive care -care time >40 mins Result Diagram: 11/12/18 0621 11/12/18 0515 Results 24hrs Laboratory Tests Test 11/11/18 09:30 11/11/18 10:42 11/12/18 04:50 11/12/18 05:15 Urine Color YELLOW Urine Clarity SLIGHTLY CLOUDY A Urine pH 5.0 Urine Specific 1.029 [place] Urine Ketones NEGATIVE Urine Nitrite NEGATIVE Urine Bilirubin NEGATIVE Urine NEGATIVE Urobilinogen Urine Leukocyte NEGATIVE Esterase Urine > 182 H Microscopic RBC Urine 2 Microscopic WBC Urine 3+ H Hemoglobin Urine Glucose NEGATIVE Urine Total NEGATIVE Protein Ionized Calcium 0.9 L (Measured) Lab Scanned BLOOD TRANSFUS Report ION Sodium Level 138 Potassium Level 3.8 Chloride Level 106 Carbon Dioxide 29 Level Anion Gap 3 L Blood Urea 16 Nitrogen Creatinine 0.86 Est Glomerular > 60 Filtrat Rate mL/min Glucose Level 110 Lactic Acid 1.6 Level Calcium Level 7.2 L Phosphorus 3.3 Level Magnesium Level 2.4 Test 11/12/18 06:21 11/12/18 07:00 White Blood 13.0 #H Count Red Blood Count 2.09 #L Hemoglobin 6.3 #*L Hematocrit 19.4 #L Mean 92.8 Corpuscular Volume Mean 30.1 Corpuscular Hemoglobin Mean 32.5 Corpuscular Hemoglobin Conc ent Red Cell 13.9 Distribution Width Platelet Count 237 # Mean Platelet 9.2 Volume Immature 2.100 H Granulocytes % Neutrophils % 70.9 Lymphocytes % 13.0 L Monocytes % 13.7 H Eosinophils % 0.1 Basophils % 0.2 Nucleated Red 0.0 Blood Cells % Immature 0.270 H Granulocytes # Neutrophils # 9.2 H Lymphocytes # 1.7 Monocytes # 1.8 H Eosinophils # 0.0 Basophils # 0.0 Nucleated Red 0.0 Blood Cells # Blood Gas Blood arterial Specimen Source Arterial Blood 11/12/2018 6:58: Date Drawn 03 AM Arterial Blood 7.437 pH (Temp corrected ) Arterial Blood 46.8 H pCO2 (Temp correct) Arterial Blood 146.8 H pO2 (Temp corrected ) Arterial Blood 30.9 H HCO3 Arterial Blood 6.1 H Base Excess Arterial Blood 98.4 H Oxygen Saturati on Mack Test ACCEPTAB Arterial Blood Right Radial Gas Puncture Site Arterial 0.3 Blood Carboxyhe moglobin Arterial Blood 0.6 Methemoglobin Blood Gas A-a 84.6 H O2 Differential Oxyhemoglobin 97.5 Percent Blood Gas 37.0 Temperature Blood Gas 14.0 Respiration Rate Blood Gas 15 Actual Respiration Rat e Blood Gas VENT - AC Modality FiO2 40.0 Blood Gas Tidal 600.0 Volume Blood Gas Low 5.0 PEEP Setting Blood Gas TM Notified Whom Blood Gas 11/12/2018 7:26: Notified Time 40 AM Subjective 24 Hr Interval Summary Free Text/Dictation able to open eyes and follow commands Intubated and sedated for comfort, but no pressor support. planned for weaning today, nurses turning down sedation Exam/Review of Systems Exam Vitals Vital Signs Date Temp Pulse Resp B/P (MAP) Pulse Ox O2 O2 Flow FiO2 Time Delivery Rate 11/12/18 82 14 103/62 100 Mechanical 06:00 (76) Ventilator 11/12/18 40 04:29 11/12/18 98.5 04:00 11/11/18 15.0 04:15 Intake and Output 11/11/18 11/11/18 11/12/18 1515:00 23:00 07:00 IntakeIntake Total 1223.092 ml 1568.096 ml 1132 ml OutputOutput Total 2100 ml 800 ml 590 ml BalanceBalance -876.908 ml 768.096 ml 542 ml Exam Constitutional: arousable, intubated, following commands, slightly confused Head: huge dressing around face and neck, clean and unstained, drain in place Neck: see above Respiratory: mild coarse ness to breath sounds, good a/e with vent Cardiovascular: regular rate and rhythm Gastrointestinal: S/ NT / ND / +BS Extremities: no edema, good radial pulses, moving all extremities . Results Results 24hrs Laboratory Tests Test 11/11/18 09:30 11/11/18 10:42 11/12/18 04:50 11/12/18 05:15 Urine Color YELLOW Urine Clarity SLIGHTLY CLOUDY A Urine pH 5.0 Urine Specific 1.029 [place] Urine Ketones NEGATIVE Urine Nitrite NEGATIVE Urine Bilirubin NEGATIVE Urine NEGATIVE Urobilinogen Urine Leukocyte NEGATIVE Esterase Urine > 182 H Microscopic RBC Urine 2 Microscopic WBC Urine 3+ H Hemoglobin Urine Glucose NEGATIVE Urine Total NEGATIVE Protein Ionized Calcium 0.9 L (Measured) Lab Scanned BLOOD TRANSFUS Report ION Sodium Level 138 Potassium Level 3.8 Chloride Level 106 Carbon Dioxide 29 Level Anion Gap 3 L Blood Urea 16 Nitrogen Creatinine 0.86 Est Glomerular > 60 Filtrat Rate mL/min Glucose Level 110 Lactic Acid 1.6 Level Calcium Level 7.2 L Phosphorus 3.3 Level Magnesium Level 2.4 Test 11/12/18 06:21 11/12/18 07:00 White Blood 13.0 #H Count Red Blood Count 2.09 #L Hemoglobin 6.3 #*L Hematocrit 19.4 #L Mean 92.8 Corpuscular Volume Mean 30.1 Corpuscular Hemoglobin Mean 32.5 Corpuscular Hemoglobin Conc ent Red Cell 13.9 Distribution Width Platelet Count 237 # Mean Platelet 9.2 Volume Immature 2.100 H Granulocytes % Neutrophils % 70.9 Lymphocytes % 13.0 L Monocytes % 13.7 H Eosinophils % 0.1 Basophils % 0.2 Nucleated Red 0.0 Blood Cells % Immature 0.270 H Granulocytes # Neutrophils # 9.2 H Lymphocytes # 1.7 Monocytes # 1.8 H Eosinophils # 0.0 Basophils # 0.0 Nucleated Red 0.0 Blood Cells # Blood Gas Blood arterial Specimen Source Arterial Blood 11/12/2018 6:58: Date Drawn 03 AM Arterial Blood 7.437 pH (Temp corrected ) Arterial Blood 46.8 H pCO2 (Temp correct) Arterial Blood 146.8 H pO2 (Temp corrected ) Arterial Blood 30.9 H HCO3 Arterial Blood 6.1 H Base Excess Arterial Blood 98.4 H Oxygen Saturati on Mack Test ACCEPTAB Arterial Blood Right Radial Gas Puncture Site Arterial 0.3 Blood Carboxyhe moglobin Arterial Blood 0.6 Methemoglobin Blood Gas A-a 84.6 H O2 Differential Oxyhemoglobin 97.5 Percent Blood Gas 37.0 Temperature Blood Gas 14.0 Respiration Rate Blood Gas 15 Actual Respiration Rat e Blood Gas VENT - AC Modality FiO2 40.0 Blood Gas Tidal 600.0 Volume Blood Gas Low 5.0 PEEP Setting Blood Gas TM Notified Whom Blood Gas 11/12/2018 7:26: Notified Time 40 AM Imaging Imaging PROCEDURE: XR Chest. CLINICAL INDICATION: Ng tube placement TECHNIQUE: Single portable view of the chest was obtained COMPARISON: Same day FINDINGS: There is a NG tube within the stomach. The heart, lungs and mediastinum are otherwise unchanged. There is an endotracheal tube in place. The heart is normal in size. There are mild bibasilar linear atelectatic changes. RPTAT:AA IMPRESSION: New NG tube within the stomach No other significant change. .Enrique Meek MD, Date Time Electronically viewed and signed by .Enrique Meek MD, MD on 11/11/2018 13:41 .S/ CC: STEVENKRISTIAN Frazier [id number] PROCEDURE: CT Angio Neck contrast. CLINICAL INDICATION: Status post face left. Expanding hematoma. TECHNIQUE: CT angiography of the neck was performed. High resolution serial axial CT images of the neck were obtained after the administration of 100 cc Omnipaque 350 IV contrast material. 3D, sagittal and coronal reconstruction images were produced. Exam CTDlvol = 34 mGy and DLP = 546 mGy-cm. One of the following 3 dose reduction techniques were used: Automated exposure control; adjustment of the mA and/or kV according to patient size; or use of iterative reconstruction technique. DICOM images are available. COMPARISON: None available FINDINGS: There is bandages overlying the right ureter external catheter along the anterior margin extending superiorly superficially above the upper extent of the examination. There is soft tissue infiltration and gas obstructing the periphery of the right external auditory canal. There is contiguous infiltration compatible with acute hemorrhage extending in the subcutaneous fat superficial to the right platysma study from the right. Inferiorly to the cyst submandibular region tracking to the left of midline. Maximal thickness of the superficial he morrhage is 3.2 cm. There is contrast extravasation within the superior posterior medial aspect of the collection adjacent to the tear. Small amount of hyperdense material extends to the cutaneous surface with an air-fluid level suggestive of an old pin defect. A tract of the hyperdense contrast ex travasation with scattered gas extends inferiorly to the level of the angle of the mandible. There are several small peripheral branches of the right external carotid artery immediately adjacent to the contrast extravasation. The contrast injection was in the right upper extremity and there is superior reflux into the right external jugular vein with hyperdense contrast material is seen on coronal images along the medial aspect of the contrast extravasation. There is partial effacement and medial displacement of the right parotid gland. The right common and internal carotid arteries are normal in caliber. Carotid bifurcation is unremarkable. The right internal jugular vein is patent although mildly effaced. Left-sided vasculature and vertebral arteries are unremarkable. There is no significant mass effect of the nasal and oropharynx. Degenerative changes of the cervical spine are present. Osseous structures are otherwise unremarkable. IMPRESSION: 1. Extensive soft tissue collection compatible with a superficial subcutaneous hemorrhage tracking along the right neck from the level of the inferior inferiorly to the submandibular region to the left anterior body of the mandible with mass effect on adjacent structures. 2. Major arteries including the right common and internal carotid arteries are intact. Several peripheral branches of the right external carotid artery along the medial aspect of the collection. 3. There is hyperdense contrast extravasation along the medial margin of the collection extending to a superficial catheter adjacent to the right ear with appearance consistent with an open wound. Although there are peripheral branches of the external carotid artery abutting the hematoma, the IV contrast injection for the study was in the right upper extremity and there is reflux of hyperdense contrast superiorly into branches of the right external jugular vein along the medial aspect of the hematoma. Source of the hemorrhage may be due to a laceration of the branches of the external carotid artery versus the right external jugular vein. Critical findings reported to Dr. Fair on 11/11/2018 1:05:40 AM. RPTAT: HMVK .Will Meyers MD, MD Date Time Electronically viewed and signed by .Will Meyers MD, MD on 11/11/2018 01:34 .K/ CC: MCKENNA FAIR DO [id number] Medications Medication Current Medications Sodium Chloride 1,000 ml @ 100 mls/hr Q10H IV Last administered on 11/11/18at 19:47; Admin Dose 100 MLS/HR; Start 11/11/18 at 02:20 Vancomycin HCl (Vanco Iv Per Pharmacy) VANCOMYCIN PER PHARMACY PER PROTOCOL XX ; Start 11/11/18 at 04:00 Piperacillin Sod/ Tazobactam Sod 100 ml @ 200 mls/hr Q6 IVPB Last administered on 11/12/18 06:06; Admin Dose 200 MLS/HR; Start 11/11/18 at 02:30 Propofol 100 ml @ 2.508 mls/ hr Q12H IV Last administered on 11/12/18 07:48; Admin Dose 1.003 MLS/HR; Start 11/11/18 at 06:30 Lorazepam (Ativan) 2 mg Q4 PRN IV ANXIETY; Start 11/11/18 at 06:30 Fentanyl 100 ml @ 2.5 mls/hr TITRATE IV Last administered on 11/12/18 03:33; Admin Dose 10 MLS/HR; Start 11/11/18 at 09:00 Famotidine (Pepcid Iv) 20 mg BID IV Last administered on 11/11/18 22:07; Admin Dose 20 MG; Start 11/11/18 at 21:00 Ondansetron HCl (Zofran Inj) 4 mg Q6H PRN IV NAUSEA AND/OR VOMITING Last admin istered on 11/12/18 06:48; Admin Dose 4 MG; Start 11/11/18 at 10:30 Docusate Sodium (Colace) 100 mg BID PO Last administered on 11/11/18 22:07; Admin Dose 100 MG; Start 11/11/18 at 21:00 Vancomycin HCl 1.5 gm/Sodium Chloride 250 ml @ 83.333 mls/ hr Q12H IVPB Last administered on 11/12/18 03:24; Admin Dose 83.333 MLS/HR; Start 11/11/18 at 15:00 Midazolam HCl 50 ml @ 1 mls/hr TITRATE IV Last administered on 11/12/18 06:03; Admin Dose 10 MLS/HR; Start 11/11/18 at 16:00 Calcium Gluconate 2 gm/Dextrose 120 ml @ 60 mls/hr ONCE ONCE IVPB ; Start 11/12/18 at 10:00; Stop 11/12/18 at 11:59 KRISTIAN HARRIS Nov 12, 2018 09:27
[2018-11-12] MEDS ORDERED: CALCIUM GLUCONATE 10% 2 GM in DEXTROSE 5% 100 ML IVPB ONE (10:00)
[2018-11-12] MEDS: SOD CHLORIDE 0.9% 1,000 ML IV SCH ×2 (10:06→17:54)
--- NOTE | 2018-11-12 19:03 | CONS ---
Consult Date/Type/Reason Admit Date/Time Nov 11, 2018 at 02:25 Initial Consult Date 11/11/18 Type of Consultation: Urology Reason for Consultation Urethral bleeding Requesting Provider: HERMAN SEARS Date/Time of Note DATE: 11/12/18 TIME: 19:01 Subjective Patient is awake and alert Objective Vitals Vital Signs Date Temp Pulse Resp B/P (MAP) Pulse Ox O2 O2 Flow FiO2 Time Delivery Rate 11/12/18 80 14 99 40 17:20 11/12/18 123/87 Mechanical 17:00 (99) Ventilator 11/12/18 99.5 16:00 11/11/18 15.0 04:15 Intake and Output 11/11/18 11/11/18 11/12/18 1515:00 23:00 07:00 IntakeIntake Total 1223.092 ml 1568.096 ml 1282 ml OutputOutput Total 2100 ml 800 ml 665 ml BalanceBalance -876.908 ml 768.096 ml 617 ml Exam The Paredes catheter is draining clear urine and there is no bleeding around it Results/Medications Result Diagram: 11/12/18 1704 11/12/18 0515 Results 24 hrs Laboratory Tests Test 11/12/18 04:50 11/12/18 05:15 11/12/18 06:21 11/12/18 07:00 Lab Scanned BLOOD TRANSFUSI Report ON Sodium Level 138 Potassium Level 3.8 Chloride Level 106 Carbon Dioxide 29 Level Anion Gap 3 L Blood Urea 16 Nitrogen Creatinine 0.86 Est Glomerular > 60 Filtrat Rate mL/min Glucose Level 110 Lactic Acid 1.6 Level Calcium Level 7.2 L Phosphorus Level 3.3 Magnesium Level 2.4 White Blood 13.0 #H Count Red Blood Count 2.09 #L Hemoglobin 6.3 #*L Hematocrit 19.4 #L Mean Corpuscular 92.8 Volume Mean Corpuscular 30.1 Hemoglobin Mean Corpuscular 32.5 Hemoglobin Halley nt Red Cell 13.9 Distribution Width Platelet Count 237 # Mean Platelet 9.2 Volume Immature 2.100 H Granulocytes % Neutrophils % 70.9 Lymphocytes % 13.0 L Monocytes % 13.7 H Eosinophils % 0.1 Basophils % 0.2 Nucleated Red 0.0 Blood Cells % Immature 0.270 H Granulocytes # Neutrophils # 9.2 H Lymphocytes # 1.7 Monocytes # 1.8 H Eosinophils # 0.0 Basophils # 0.0 Nucleated Red 0.0 Blood Cells # Blood Gas Blood arterial Specimen Source Arterial Blood 11/12/2018 6:58: Date Drawn 03 AM Arterial Blood 7.437 pH (Temp corrected) Arterial Blood 46.8 H pCO2 (Temp correct) Arterial Blood 146.8 H pO2 (Temp corrected) Arterial Blood 30.9 H HCO3 Arterial Blood 6.1 H Base Excess Arterial Blood 98.4 H Oxygen Saturatio n Mack Test ACCEPTAB Arterial Blood Right Radial Gas Puncture Site Arterial 0.3 Blood Carboxyhem oglobin Arterial Blood 0.6 Methemoglobin Blood Gas A-a O2 84.6 H Differential Oxyhemoglobin 97.5 Percent Blood Gas 37.0 Temperature Blood Gas 14.0 Respiration Rate Blood Gas Actual 15 Respiration Rate Blood Gas VENT - AC Modality FiO2 40.0 Blood Gas Tidal 600.0 Volume Blood Gas Low 5.0 PEEP Setting Blood Gas TM Notified Whom Blood Gas 11/12/2018 7:26: Notified Time 40 AM Test 11/12/18 17:04 Hemoglobin 7.9 #L Hematocrit 23.6 #L Medications Current Medications Sodium Chloride 1,000 ml @ 100 mls/hr Q10H IV Last administered on 11/12/18at 17:54; Admin Dose 100 MLS/HR; Start 11/11/18 at 02:20 Vancomycin HCl (Vanco Iv Per Pharmacy) VANCOMYCIN PER PHARMACY PER PROTOCOL XX ; Start 11/11/18 at 04:00 Piperacillin Sod/ Tazobactam Sod 100 ml @ 200 mls/hr Q6 IVPB Last administered on 11/12/18at 17:54; Admin Dose 200 MLS/HR; Start 11/11/18 at 02:30 Propofol 100 ml @ 2.508 mls/ hr Q12H IV Last administered on 11/12/18at 07:48; Admin Dose 1.003 MLS/HR; Start 11/11/18 at 06:30 Lorazepam (Ativan) 2 mg Q4 PRN IV ANXIETY; Start 11/11/18 at 06:30 Fentanyl 100 ml @ 2.5 mls/hr TITRATE IV Last administered on 11/12/18at 15:00; Admin Dose 10 MLS/HR; Start 11/11/18 at 09:00 Famotidine (Pepcid Iv) 20 mg BID IV Last administered on 11/12/18 08:55; Admin Dose 20 MG; Start 11/11/18 at 21:00 Ondansetron HCl (Zofran Inj) 4 mg Q6H PRN IV NAUSEA AND/OR VOMITING Last administered on 11/12/18 06:48; Admin Dose 4 MG; Start 11/11/18 at 10:30 Docusate Sodium (Colace) 100 mg BID PO Last administered on 11/12/18 08:55; Admin Dose 100 MG; Start 11/11/18 at 21:00 Vancomycin HCl 1.5 gm/Sodium Chloride 250 ml @ 83.333 mls/ hr Q12H IVPB Last administered on 11/12/18 15:05; Admin Dose 83.333 MLS/HR; Start 11/11/18 at 15:00 Midazolam HCl 50 ml @ 1 mls/hr TITRATE IV Last administered on 11/12/18 12:43; Admin Dose 10 MLS/HR; Start 11/11/18 at 16:00 Miscellaneous Information (*Rx Drug Level Order Reminder*) VANCOMYCIN TROUGH AT 0200 ONCE ONCE XX ; Start 11/13/18 at 02:00; Stop 11/13/18 at 02:01 Assessment/Plan Hospital Course (Demo Recall) 38-year-old male underwent 1. Evacuation of bilateral neck and face hematomas 2. Control of postoperative hemorrhage of neck 3. Complex closure of bilateral face and neck incisions Patient did have neck and face left about 6 days ago. He presented to the emergency room with swelling of his neck and underwent the above procedure. In the emergency room they inserted a Paredes catheter and when the patient was transferred to the ICU after his surgery his Paredes catheter was noted to be draining blood therefore a urological consultation was requested. Presently the patient is intubated and is on a respirator but he is awake and follows commands. I did review his history and his medical record. On the examination the bladder is distended up to the umbilicus. The Paredes catheter that he had was not all the way inside the bladder with the balloon inflated in the urethra. Therefore I went ahead and remove the Paredes catheter then to prep the genital area and draped it in a sterile way. I injected 20 mL of 2% lidocaine jelly for local anesthesia then I tried to insert the 16 Frisian coud catheter but that would not go in as it was going in the same false passage that was created by the traumatic insertion of the prior catheter. Then I tried a 14 Frisian coud catheter and after some manipulation I was able to get it into the bladder. The balloon was inflated with 10 mm of sterile water and the catheter connected to a drainage bag. The catheter drained thousand mL. Patient is doing better and the urine in the catheter now is clear. For the present time just keep the Paredes catheter in. JANIE ARANDA MD Nov 12, 2018 19:03
[2018-11-13] VITALS (54 sets, daily range): BP systolic 86–130; BP diastolic 53–88; PULSE 62–102; RESP 7–23
[2018-11-13] MEDS: FENTAnyl (DRIP) 1000 mcg/100mL 100 ML IV SCH ×2 (02:13→09:30)
[2018-11-13] MEDS: VANCOMYCIN HCL 1.5 GM in SOD CHLORIDE 0.9% 250 ML IVPB SCH (03:58)
[2018-11-13] MEDS: LORAZEPAM 2 MG INJ IV PRN (04:17)
[2018-11-13] MEDS: MIDAZOLAM (DRIP) 50 mg/50 mL 50 ML IV SCH ×4 (04:19→23:24)
[2018-11-13] MEDS: SOD CHLORIDE 0.9% 1,000 ML IV SCH ×2 (05:56→16:00)
[2018-11-13] MEDS: PIPER-TAZO 3.375 GM IV (PMX) 100 ML IVPB SCH ×4 (05:59→23:24)
[2018-11-13] MEDS: PROPOFOL 100 ML IV SCH ×2 (06:30→18:04)
--- NOTE | 2018-11-13 06:48 | CONS ---
Assessment/Plan Assessment/Plan Hospital Course (Demo Recall) 1) facial/neck hematoma doubt there is an active infection but will need to treat for possible infection at this time agree with vanco/zosyn at present nasal swal for MRSA has been ordered will get cx from R facial MISHA drain elevated temp and WBC could be due to just the hematoma 11/12 - continue with vanco/zosyn at present R facial drain is NGTD blood cx have GPC present, ID is pending 11/13 - group A strep was present in blood cx, this is a true infection continue with zosyn and d/c vanco MRSA screen was never collected and R facial drain also has group A strep 2) hematuria with lee only draining blood await urology to re-position lee urine cx has been ordered 11/12 - u/a just shows hematuria, doubt there is an active infection in urine lee has clear urine currently 11/13 - urine is clear 3) GPC in blood cx (group A strep) 11/12 - await ID, on vanco if staph aureus will re-do blood cx tomorrow 11/13 - Group A strep is present in wound cx and blood cx continue with zosyn alone, no need to repeat blood cx Consultation Date/Type/Reason Admit Date/Time Nov 11, 2018 at 02:25 Initial Consult Date 11/11/18 Type of Consult ID Requesting Provider: HERMAN SEARS Date/Time of Note DATE: 11/13/18 TIME: 06:43 24 HR Interval Summary Free Text/Dictation pt pulled out NGT and it was re-inserted pt now in restraints no V, was tolerating TF pt is sedated and intubated Exam/Review of Systems Exam Vitals Vital Signs Date Temp Pulse Resp B/P (MAP) Pulse Ox O2 O2 Flow FiO2 Time Delivery Rate 11/13/18 68 14 104/67 100 Mechanical 05:30 (79) Ventilator 11/13/18 40 05:18 11/13/18 98.8 04:00 11/11/18 15.0 04:15 Intake and Output 11/12/18 11/12/18 11/13/18 1515:00 23:00 07:00 IntakeIntake Total 1375.763 ml 1500.000 ml 600 ml OutputOutput Total 825 ml 735 ml 845 ml BalanceBalance 550.763 ml 765.000 ml -245 ml Exam intubated and sedated ENMT: other (less swelling to neck below the bandages) Respiratory: clear to auscultation Cardiovascular: regular rate and rhythm Gastrointestinal: soft, bowel sounds Results Result Diagram: 11/13/18 0315 11/13/18 0500 Results 24hrs Laboratory Tests Test 11/12/18 07:00 11/12/18 17:04 11/13/18 02:11 11/13/18 03:15 Blood Gas Blood arterial Specimen Source Arterial Blood 11/12/2018 6:58:0 Date Drawn 3 AM Arterial Blood pH 7.437 (Temp corrected) Arterial Blood 46.8 H pCO2 (Temp correct) Arterial Blood 146.8 H pO2 (Temp corrected) Arterial Blood 30.9 H HCO3 Arterial Blood 6.1 H Base Excess Arterial Blood 98.4 H Oxygen Saturation Mack Test ACCEPTAB Arterial Blood Right Radial Gas Puncture Site Arterial 0.3 Blood Carboxyhemo globin Arterial Blood 0.6 Methemoglobin Blood Gas A-a O2 84.6 H Differential Oxyhemoglobin 97.5 Percent Blood Gas 37.0 Temperature Blood Gas 14.0 Respiration Rate Blood Gas Actual 15 Respiration Rate Blood Gas VENT - AC Modality FiO2 40.0 Blood Gas Tidal 600.0 Volume Blood Gas Low 5.0 PEEP Setting Blood Gas TM Notified Whom Blood Gas 11/12/2018 7:26:4 Notified Time 0 AM Hemoglobin 7.9 #L 7.7 L Hematocrit 23.6 #L 22.8 L Vancomycin Level 13.7 Trough White Blood Count 9.3 # Red Blood Count 2.51 #L Mean Corpuscular 90.8 Volume Mean Corpuscular 30.7 Hemoglobin Mean Corpuscular 33.8 Hemoglobin Concen t Red Cell 14.6 H Distribution Width Platelet Count 201 Mean Platelet 9.6 Volume Immature 4.200 H Granulocytes % Neutrophils % 57.3 Lymphocytes % 24.9 Monocytes % 12.4 H Eosinophils % 0.9 Basophils % 0.3 Nucleated Red 0.2 H Blood Cells % Immature 0.390 H Granulocytes # Neutrophils # 5.3 Lymphocytes # 2.3 Monocytes # 1.2 H Eosinophils # 0.1 Basophils # 0.0 Nucleated Red 0.0 Blood Cells # Test 11/13/18 04:53 11/13/18 05:00 Lab Scanned BLOOD TRANSFUSIO Report N Sodium Level 140 Potassium Level 3.9 Chloride Level 104 Carbon Dioxide 30 Level Anion Gap 6 Blood Urea 16 Nitrogen Creatinine 0.99 Est Glomerular > 60 Filtrat Rate mL/min Glucose Level 87 Calcium Level 7.7 L Phosphorus Level 2.0 #L Magnesium Level 2.4 Total Bilirubin 0.3 Direct Bilirubin 0.00 Indirect 0.3 Bilirubin Aspartate Amino 17 Transf (AST/SGOT) Alanine 30 Aminotransferase (ALT/SGPT) Alkaline 40 L Phosphatase Total Protein 5.1 L Albumin 2.6 L Globulin 2.50 Albumin/Globulin 1.04 Ratio Medications Medication Current Medications Sodium Chloride 1,000 ml @ 100 mls/hr Q10H IV Last administered on 11/13/18 05:56; Admin Dose 100 MLS/HR; Start 11/11/18 at 02:20 Vancomycin HCl (Vanco Iv Per Pharmacy) VANCOMYCIN PER PHARMACY PER PROTOCOL XX ; Start 11/11/18 at 04:00 Piperacillin Sod/ Tazobactam Sod 100 ml @ 200 mls/hr Q6 IVPB Last administered on 11/13/18 05:59; Admin Dose 200 MLS/HR; Start 11/11/18 at 02:30 Propofol 100 ml @ 2.508 mls/ hr Q12H IV Last administered on 11/12/18 07:48; Admin Dose 1.003 MLS/HR; Start 11/11/18 at 06:30 Lorazepam (Ativan) 2 mg Q4 PRN IV ANXIETY Last administered on 11/13/18 04:17; Admin Dose 2 MG; Start 11/11/18 at 06:30 Fentanyl 100 ml @ 2.5 mls/hr TITRATE IV Last administered on 11/13/18 02:13; Admin Dose 10 MLS/HR; Start 11/11/18 at 09:00 Famotidine (Pepcid Iv) 20 mg BID IV Last administered on 11/12/18 21:53; Admin Dose 20 MG; Start 11/11/18 at 21:00 Ondansetron HCl (Zofran Inj) 4 mg Q6H PRN IV NAUSEA AND/OR VOMITING Last administered on 11/12/18 06:48; Admin Dose 4 MG; Start 11/11/18 at 10:30 Docusate Sodium (Colace) 100 mg BID PO Last administered on 3/26/19at 21:53; Admin Dose 100 MG; Start 11/11/18 at 21:00 Vancomycin HCl 1.5 gm/Sodium Chloride 250 ml @ 83.333 mls/ hr Q12H IVPB Last administered on 11/13/18at 03:58; Admin Dose 83.333 MLS/HR; Start 11/11/18 at 15:00 Midazolam HCl 50 ml @ 1 mls/hr TITRATE IV Last administered on 11/13/18at 04:19; Admin Dose 10 MLS/HR; Start 11/11/18 at 16:00 OMAIRA FLYNN MD Nov 13, 2018 06:48
[2018-11-13] MEDS: DOCUSATE SODIUM 100 MG CAP PO SCH ×2 (09:19→20:45)
[2018-11-13] MEDS: FAMOTIDINE 20 MG INJ IV SCH ×2 (09:28→20:45)
--- NOTE | 2018-11-13 11:04 | CONS ---
Consult Date/Type/Reason Admit Date/Time Nov 11, 2018 at 02:25 Initial Consult Date 11/11/18 Type of Consult Pulmonary Requesting Provider: HERMAN SEARS Date/Time of Note DATE: 11/13/18 TIME: 11:03 Subjective Still with significant upper extremity edema. Continues mechanical ventilation via endotracheal tube. Minimal cuff leak noted again today. Objective Vital Signs Date Temp Pulse Resp B/P (MAP) Pulse Ox O2 O2 Flow FiO2 Time Delivery Rate 11/13/18 68 14 111/67 100 Mechanical 08:30 (82) Ventilator 11/13/18 40 08:10 11/13/18 98.0 08:00 11/11/18 15.0 04:15 Intake and Output 11/12/18 11/12/18 11/13/18 1515:00 23:00 07:00 IntakeIntake Total 1375.763 ml 1500.000 ml 1550 ml OutputOutput Total 825 ml 735 ml 845 ml BalanceBalance 550.763 ml 765.000 ml 705 ml Exam PHYSICAL EXAMINATION: GENERAL: Well-nourished, well-developed gentleman, orally intubated on mechanical ventilation. VITAL SIGNS: SKIN: He has significant bandages around his face and significant neck edema. MISHA drains in place CARDIAC: S1, S2, no added sounds or murmurs. Tachycardia. CHEST: Diminished air entry bilaterally. No rales or wheezes. ABDOMEN: Soft, nontender. No guarding or rebound. EXTREMITIES: No cyanosis, clubbing, 1+ edema. NEUROLOGIC: No focal deficits. Vent Setting Ventilator Support Mode: AC Fraction of Inspired Oxygen pe: 40 Positive End Expiratory Pressu: 5.0 Results/Medications Result Diagram: 11/13/18 0315 11/13/18 0500 Results 24 hrs Laboratory Tests Test 11/12/18 17:04 11/13/18 02:11 11/13/18 03:15 11/13/18 04:53 Hemoglobin 7.9 #L 7.7 L Hematocrit 23.6 #L 22.8 L Vancomycin Level 13.7 Trough White Blood Count 9.3 # Red Blood Count 2.51 #L Mean Corpuscular 90.8 Volume Mean Corpuscular 30.7 Hemoglobin Mean Corpuscular 33.8 Hemoglobin Concen t Red Cell 14.6 H Distribution Width Platelet Count 201 Mean Platelet 9.6 Volume Immature 4.200 H Granulocytes % Neutrophils % 57.3 Lymphocytes % 24.9 Monocytes % 12.4 H Eosinophils % 0.9 Basophils % 0.3 Nucleated Red 0.2 H Blood Cells % Immature 0.390 H Granulocytes # Neutrophils # 5.3 Lymphocytes # 2.3 Monocytes # 1.2 H Eosinophils # 0.1 Basophils # 0.0 Nucleated Red 0.0 Blood Cells # Lab Scanned BLOOD TRANSFUSIO Report N Test 11/13/18 05:00 Sodium Level 140 Potassium Level 3.9 Chloride Level 104 Carbon Dioxide 30 Level Anion Gap 6 Blood Urea 16 Nitrogen Creatinine 0.99 Est Glomerular > 60 Filtrat Rate mL/min Glucose Level 87 Calcium Level 7.7 L Phosphorus Level 2.0 #L Magnesium Level 2.4 Total Bilirubin 0.3 Direct Bilirubin 0.00 Indirect 0.3 Bilirubin Aspartate Amino 17 Transf (AST/SGOT) Alanine 30 Aminotransferase (ALT/SGPT) Alkaline 40 L Phosphatase Total Protein 5.1 L Albumin 2.6 L Globulin 2.50 Albumin/Globulin 1.04 Ratio Medications Current Medications Sodium Chloride 1,000 ml @ 100 mls/hr Q10H IV Last administered on 11/13/18 05:56; Admin Dose 100 MLS/HR; Start 11/11/18 at 02:20 Piperacillin Sod/ Tazobactam Sod 100 ml @ 200 mls/hr Q6 IVPB Last administered on 11/13/18at 05:59; Admin Dose 200 MLS/HR; Start 11/11/18 at 02:30 Propofol 100 ml @ 2.508 mls/ hr Q12H IV Last administered on 11/12/18at 07:48; Admin Dose 1.003 MLS/HR; Start 11/11/18 at 06:30 Lorazepam (Ativan) 2 mg Q4 PRN IV ANXIETY Last administered on 11/13/18 04:17; Admin Dose 2 MG; Start 11/11/18 at 06:30 Fentanyl 100 ml @ 2.5 mls/hr TITRATE IV Last administered on 11/13/18 09:30; Admin Dose 2.5 MLS/HR; Start 11/11/18 at 09:00 Famotidine (Pepcid Iv) 20 mg BID IV Last administered on 11/13/18 09:28; Admin Dose 20 MG; Start 11/11/18 at 21:00 Ondansetron HCl (Zofran Inj) 4 mg Q6H PRN IV NAUSEA AND/OR VOMITING Last administered on 11/12/18at 06:48; Admin Dose 4 MG; Start 11/11/18 at 10:30 Docusate Sodium (Colace) 100 mg BID PO Last administered on 11/13/18at 09:19; Admin Dose 100 MG; Start 11/11/18 at 21:00 Midazolam HCl 50 ml @ 1 mls/hr TITRATE IV Last administered on 11/13/18at 09:28; Admin Dose 10 MLS/HR; Start 11/11/18 at 16:00 Assessment/Plan Hospital Course (Demo Recall) IMPRESSION 1. Recent neck lift with significant subcutaneous hemorrhage resulting in severe sepsis and airway compression with respiratory distress. Now status post decompression and evacuation of hematoma with drains in place, on mechanical ventilation with severe sepsis. 2. Anemia secondary to above 3. Extrinsic airway occlusion with minimal cuff leak noted. Plan 1. Continue postoperative antibiotics per infectious diseases. Currently on vancomycin and Zosyn. 2. Continue mechanical ventilation until decreased upper airway edema and safe airway. Not safe to extubate today 3. Continue nasogastric tube feeding 4. DVT and GI prophylaxis. 5. Monitor H&H posttransfusion Critical care time 40 minutes. Stable for transfer to contracted ICU. TRENT GARCIA MD, [facility] Nov 13, 2018 11:04
--- NOTE | 2018-11-13 16:55 | PN ---
Date/Time of Note Date/Time of Note DATE: 11/13/18 TIME: 16:43 Assessment/Plan VTE Prophylaxis Risk score (from Ns)>0 risk: 7 SCD applied (from Ns): Yes Pharmacological prophylaxis: NA/contraindicated Pharm contraindication: bleeding Lines/Catheters IV Catheter Type (from [facility]): Peripheral IV Urinary Cath still in place: Yes Reason Cath still needed: other (indicate) Assessment/Plan Hospital Course S: remains intubated and sedated. no acute overnight event O : Constitutional: arousable, intubated, following commands, slightly confused Head: huge dressing around face and neck, clean and unstained, drain removed Neck: see above Respiratory: mild coarse ness to breath sounds, good a/e with vent Cardiovascular: regular rate and rhythm Gastrointestinal: S/ NT / ND / +BS Extremities: trace stephanie le edema , good radial pulses, moving all extremities assessment and plan: 38-year-old male who presented to the emergency department complaining of a pop in his neck followed by neck swelling 6 days after cosmetic neck surgery. was found to have a rapidly expanding Hematoma and active hemorrhage of postoperative neck and face wounds and was prophylactically intubated in ER and then taken to the OR for urgent evacuation of bilateral neck and face hematomas and control of postoperative hemorrhage of neck . He is stable now and managed in the ICU as follows: 1. Acute resp failure (prophylactic, but may also have aspirated): remains vent dependent -2/2 #2 -continue vent support -pulm wants to hold of on weaning 2/2 swelling 2. Rapidly expanding Hematoma and active hemorrhage of postoperative neck and face wounds status post face/neck lift 11/05/18 -possible vascular injury from CT -hgb dropped again today, no stain on dressing, f/u repeat H / H -patient is now s/p evacuation of bilateral neck and face hematomas and control of postoperative hemorrhage of neck 11/11/[address] Matute -continue to avoid anticoagulation until cleared by surgery -post op wound mgt per surgery 3. Sepsis with lactic acidosis: improved -2/2 strep pyogenes bacteremia, cultures from facial drain also growing strep pyogenes and staph -lactic acid trended to normal -ID managing abx, appreciate input 4. Anemia -hgb dipped slightly, but is stable -transfuse PRN hgb <7.5 FEN: tube feeds, reduce IVF to 40/h Dispo: -Continue ICU supportive care -care time >40 mins Result Diagram: 11/13/18 0315 11/13/18 0500 Results 24hrs Laboratory Tests Test 11/12/18 17:04 11/13/18 02:11 11/13/18 03:15 11/13/18 04:53 Hemoglobin 7.9 #L 7.7 L Hematocrit 23.6 #L 22.8 L Vancomycin Level 13.7 Trough White Blood Count 9.3 # Red Blood Count 2.51 #L Mean Corpuscular 90.8 Volume Mean Corpuscular 30.7 Hemoglobin Mean Corpuscular 33.8 Hemoglobin Concen t Red Cell 14.6 H Distribution Width Platelet Count 201 Mean Platelet 9.6 Volume Immature 4.200 H Granulocytes % Neutrophils % 57.3 Lymphocytes % 24.9 Monocytes % 12.4 H Eosinophils % 0.9 Basophils % 0.3 Nucleated Red 0.2 H Blood Cells % Immature 0.390 H Granulocytes # Neutrophils # 5.3 Lymphocytes # 2.3 Monocytes # 1.2 H Eosinophils # 0.1 Basophils # 0.0 Nucleated Red 0.0 Blood Cells # Lab Scanned BLOOD TRANSFUSIO Report N Test 11/13/18 05:00 Sodium Level 140 Potassium Level 3.9 Chloride Level 104 Carbon Dioxide 30 Level Anion Gap 6 Blood Urea 16 Nitrogen Creatinine 0.99 Est Glomerular > 60 Filtrat Rate mL/min Glucose Level 87 Calcium Level 7.7 L Phosphorus Level 2.0 #L Magnesium Level 2.4 Total Bilirubin 0.3 Direct Bilirubin 0.00 Indirect 0.3 Bilirubin Aspartate Amino 17 Transf (AST/SGOT) Alanine 30 Aminotransferase (ALT/SGPT) Alkaline 40 L Phosphatase Total Protein 5.1 L Albumin 2.6 L Globulin 2.50 Albumin/Globulin 1.04 Ratio Exam/Review of Systems Exam Vitals Vital Signs Date Temp Pulse Resp B/P (MAP) Pulse Ox O2 O2 Flow FiO2 Time Delivery Rate 11/13/18 97.8 62 14 106/66 100 Mechanical 16:00 (79) Ventilator 11/13/18 40 15:20 11/11/18 15.0 04:15 Intake and Output 11/12/18 11/12/18 11/13/18 1515:00 23:00 07:00 IntakeIntake Total 1375.763 ml 1500.000 ml 1550 ml OutputOutput Total 825 ml 735 ml 1045 ml BalanceBalance 550.763 ml 765.000 ml 505 ml Results Results 24hrs Laboratory Tests Test 11/12/18 17:04 11/13/18 02:11 11/13/18 03:15 11/13/18 04:53 Hemoglobin 7.9 #L 7.7 L Hematocrit 23.6 #L 22.8 L Vancomycin Level 13.7 Trough White Blood Count 9.3 # Red Blood Count 2.51 #L Mean Corpuscular 90.8 Volume Mean Corpuscular 30.7 Hemoglobin Mean Corpuscular 33.8 Hemoglobin Concen t Red Cell 14.6 H Distribution Width Platelet Count 201 Mean Platelet 9.6 Volume Immature 4.200 H Granulocytes % Neutrophils % 57.3 Lymphocytes % 24.9 Monocytes % 12.4 H Eosinophils % 0.9 Basophils % 0.3 Nucleated Red 0.2 H Blood Cells % Immature 0.390 H Granulocytes # Neutrophils # 5.3 Lymphocytes # 2.3 Monocytes # 1.2 H Eosinophils # 0.1 Basophils # 0.0 Nucleated Red 0.0 Blood Cells # Lab Scanned BLOOD TRANSFUSIO Report N Test 11/13/18 05:00 Sodium Level 140 Potassium Level 3.9 Chloride Level 104 Carbon Dioxide 30 Level Anion Gap 6 Blood Urea 16 Nitrogen Creatinine 0.99 Est Glomerular > 60 Filtrat Rate mL/min Glucose Level 87 Calcium Level 7.7 L Phosphorus Level 2.0 #L Magnesium Level 2.4 Total Bilirubin 0.3 Direct Bilirubin 0.00 Indirect 0.3 Bilirubin Aspartate Amino 17 Transf (AST/SGOT) Alanine 30 Aminotransferase (ALT/SGPT) Alkaline 40 L Phosphatase Total Protein 5.1 L Albumin 2.6 L Globulin 2.50 Albumin/Globulin 1.04 Ratio Medications Medication Current Medications Sodium Chloride 1,000 ml @ 100 mls/hr Q10H IV Last administered on 11/13/18at 05:56; Admin Dose 100 MLS/HR; Start 11/11/18 at 02:20 Piperacillin Sod/ Tazobactam Sod 100 ml @ 200 mls/hr Q6 IVPB Last administered on 11/13/18at 13:31; Admin Dose 200 MLS/HR; Start 11/11/18 at 02:30 Propofol 100 ml @ 2.508 mls/ hr Q12H IV Last administered on 11/12/18at 07:48; Admin Dose 1.003 MLS/HR; Start 11/11/18 at 06:30 Lorazepam (Ativan) 2 mg Q4 PRN IV ANXIETY Last administered on 11/13/18 04:17; Admin Dose 2 MG; Start 11/11/18 at 06:30 Fentanyl 100 ml @ 2.5 mls/hr TITRATE IV Last administered on 11/13/18 09:30; Admin Dose 2.5 MLS/HR; Start 11/11/18 at 09:00 Famotidine (Pepcid Iv) 20 mg BID IV Last administered on 11/13/18 09:28; Admin Dose 20 MG; Start 11/11/18 at 21:00 Ondansetron HCl (Zofran Inj) 4 mg Q6H PRN IV NAUSEA AND/OR VOMITING Last administered on 11/12/18 06:48; Admin Dose 4 MG; Start 11/11/18 at 10:30 Docusate Sodium (Colace) 100 mg BID PO Last administered on 11/13/18 09:19; Admin Dose 100 MG; Start 11/11/18 at 21:00 Midazolam HCl 50 ml @ 1 mls/hr TITRATE IV Last administered on 11/13/18 09:28; Admin Dose 10 MLS/HR; Start 11/11/18 at 16:00 KRISTIAN HARRIS Nov 13, 2018 16:53
[2018-11-13] MEDS ORDERED: POTASSIUM PHOSPHATE 15 MM in SOD CHLORIDE 0.9% 250 ML IVPB ONE (17:00)
--- NOTE | 2018-11-13 19:11 | PAC ---
Date/Time of Note Date/Time of Note DATE: 11/13/18 TIME: 19:09 Post-Anesthesia Notes Post-Anesthesia Note Last documented vital signs Vital Signs Date Temp Pulse Resp B/P (MAP) Pulse Ox O2 O2 Flow FiO2 Time Delivery Rate 11/13/18 74 15 86/53 (64) 100 Mechanical 18:00 Ventilator 11/13/18 40 17:10 11/13/18 97.8 16:00 11/11/18 15.0 04:15 Activity: WNL Respiratory function: WNL Cardiovascular function: WNL Mental status: Baseline Pain reasonably controlled: Yes Hydration appropriate: Yes Nausea/Vomiting absent: Yes Comments BP: 111/60 HR: 61 RR: 15 T: 98.4 SaO2: 100% SHERI ZARATE MD Nov 13, 2018 19:11
--- NOTE | 2018-11-13 20:41 | CONS ---
Assessment/Plan Assessment/Plan Assessment/Plan (Daily) POD #2 s/p control of hemorrhage and evacuation of hematoma. No active bleeding. Patient should f/u with his plastic surgeon upon discharge. Consultation Date/Type/Reason Admit Date/Time Nov 11, 2018 at 02:25 Initial Consult Date 11/11/18 Type of Consult ENT Requesting Provider: HERMAN SEARS Date/Time of Note DATE: 11/13/18 TIME: 20:39 24 HR Interval Summary Free Text/Dictation pt still intubated Exam/Review of Systems Exam Vitals Vital Signs Date Temp Pulse Resp B/P (MAP) Pulse Ox O2 O2 Flow FiO2 Time Delivery Rate 11/13/18 77 14 110/71 88 20:30 (84) 11/13/18 98.1 Mechanical 20:00 Ventilator 11/13/18 40 17:10 11/11/18 15.0 04:15 Intake and Output 11/12/18 11/12/18 11/13/18 1515:00 23:00 07:00 IntakeIntake Total 1375.763 ml 1500.000 ml 1550 ml OutputOutput Total 825 ml 735 ml 1045 ml BalanceBalance 550.763 ml 765.000 ml 505 ml ENMT: other (Dressing and drains removed. No hematoma. Skin flaps healing well) Results Result Diagram: 11/13/18 0315 11/13/18 0500 Results 24hrs Laboratory Tests Test 11/13/18 02:11 11/13/18 03:15 11/13/18 04:53 11/13/18 05:00 Vancomycin Level 13.7 Trough White Blood Count 9.3 # Red Blood Count 2.51 #L Hemoglobin 7.7 L Hematocrit 22.8 L Mean Corpuscular 90.8 Volume Mean Corpuscular 30.7 Hemoglobin Mean Corpuscular 33.8 Hemoglobin Concen t Red Cell 14.6 H Distribution Width Platelet Count 201 Mean Platelet 9.6 Volume Immature 4.200 H Granulocytes % Neutrophils % 57.3 Lymphocytes % 24.9 Monocytes % 12.4 H Eosinophils % 0.9 Basophils % 0.3 Nucleated Red 0.2 H Blood Cells % Immature 0.390 H Granulocytes # Neutrophils # 5.3 Lymphocytes # 2.3 Monocytes # 1.2 H Eosinophils # 0.1 Basophils # 0.0 Nucleated Red 0.0 Blood Cells # Lab Scanned BLOOD TRANSFUSIO Report N Sodium Level 140 Potassium Level 3.9 Chloride Level 104 Carbon Dioxide 30 Level Anion Gap 6 Blood Urea 16 Nitrogen Creatinine 0.99 Est Glomerular > 60 Filtrat Rate mL/min Glucose Level 87 Calcium Level 7.7 L Phosphorus Level 2.0 #L Magnesium Level 2.4 Total Bilirubin 0.3 Direct Bilirubin 0.00 Indirect 0.3 Bilirubin Aspartate Amino 17 Transf (AST/SGOT) Alanine 30 Aminotransferase (ALT/SGPT) Alkaline 40 L Phosphatase Total Protein 5.1 L Albumin 2.6 L Globulin 2.50 Albumin/Globulin 1.04 Ratio Medications Medication Current Medications Sodium Chloride 1,000 ml @ 40 mls/hr Q24H IV Last administered on 11/13/18 16:00; Admin Dose 40 MLS/HR; Start 11/11/18 at 02:20 Piperacillin Sod/ Tazobactam Sod 100 ml @ 200 mls/hr Q6 IVPB Last administered on 11/13/18 17:47; Admin Dose 200 MLS/HR; Start 11/11/18 at 02:30 Propofol 100 ml @ 2.508 mls/ hr Q12H IV Last administered on 11/12/18 07:48; Admin Dose 1.003 MLS/HR; Start 11/11/18 at 06:30 Lorazepam (Ativan) 2 mg Q4 PRN IV ANXIETY Last administered on 11/13/18 04:17; Admin Dose 2 MG; Start 11/11/18 at 06:30 Fentanyl 100 ml @ 2.5 mls/hr TITRATE IV Last administered on 11/13/18 09:30; Admin Dose 2.5 MLS/HR; Start 11/11/18 at 09:00 Famotidine (Pepcid Iv) 20 mg BID IV Last administered on 11/13/18 09:28; Admin Dose 20 MG; Start 11/11/18 at 21:00 Ondansetron HCl (Zofran Inj) 4 mg Q6H PRN IV NAUSEA AND/OR VOMITING Last administered on 11/12/18 06:48; Admin Dose 4 MG; Start 11/11/18 at 10:30 Docusate Sodium (Colace) 100 mg BID PO Last administered on 11/13/18 09:19; Admin Dose 100 MG; Start 11/11/18 at 21:00 Midazolam HCl 50 ml @ 1 mls/hr TITRATE IV Last administered on 11/13/18at 17:48; Admin Dose 10 MLS/HR; Start 11/11/18 at 16:00 Potassium Phosphate 15 mm/ Sodium Chloride 255 ml @ 63.75 mls/ hr ONCE ONCE IVPB Last administered on 11/13/18at 17:47; Admin Dose 63.75 MLS/HR; Start 11/13/18 at 17:00; Stop 11/13/18 at 20:59 AMBROCIO HERNANDEZ MD Nov 13, 2018 20:41
[2018-11-14] VITALS (40 sets, daily range): BP systolic 94–152; BP diastolic 54–104; PULSE 69–121; RESP 8–22
[2018-11-14] MEDS: PIPER-TAZO 3.375 GM IV (PMX) 100 ML IVPB SCH ×3 (05:26→18:15)
[2018-11-14] MEDS: FENTAnyl (DRIP) 1000 mcg/100mL 100 ML IV SCH (05:31)
[2018-11-14] MEDS: PROPOFOL 100 ML IV SCH ×2 (06:30→18:15)
[2018-11-14] MEDS: MIDAZOLAM (DRIP) 50 mg/50 mL 50 ML IV SCH (06:31)
--- NOTE | 2018-11-14 06:54 | CONS ---
Assessment/Plan Assessment/Plan Hospital Course (Demo Recall) 1) facial/neck hematoma doubt there is an active infection but will need to treat for possible infection at this time agree with vanco/zosyn at present nasal swal for MRSA has been ordered will get cx from R facial MISHA drain elevated temp and WBC could be due to just the hematoma 11/12 - continue with vanco/zosyn at present R facial drain is NGTD blood cx have GPC present, ID is pending 11/13 - group A strep was present in blood cx, this is a true infection continue with zosyn and d/c vanco MRSA screen was never collected and R facial drain also has group A strep 11/14 - facial drain cx grew CoNS and group A strep continue with zosyn at present can be switched to unasyn a.m. labs show stable Hgb and normal WBC 2) hematuria with lee only draining blood await urology to re-position lee urine cx has been ordered 11/12 - u/a just shows hematuria, doubt there is an active infection in urine lee has clear urine currently 11/13 - urine is clear 11/14 - urine cx was neg 3) GPC in blood cx (group A strep) 11/12 - await ID, on vanco if staph aureus will re-do blood cx tomorrow 11/13 - Group A strep is present in wound cx and blood cx continue with zosyn alone, no need to repeat blood cx 11/14 - group A strep zosyn can be switched to unasyn at anytime pt likely to be extubated later today and possible tx to [facility] Consultation Date/Type/Reason Admit Date/Time Nov 11, 2018 at 02:25 Initial Consult Date 11/11/18 Type of Consult ID Requesting Provider: HERMAN SEARS Date/Time of Note DATE: 11/14/18 TIME: 06:50 24 HR Interval Summary Free Text/Dictation pt had facial drains removed no BM tolerates NG feeds remains sedated and intubated Exam/Review of Systems Exam Vitals Vital Signs Date Temp Pulse Resp B/P (MAP) Pulse Ox O2 O2 Flow FiO2 Time Delivery Rate 11/14/18 76 15 96/54 (68) 99 06:30 11/14/18 Mechanical 06:00 Ventilator 11/14/18 30 05:00 11/14/18 98.1 04:00 11/11/18 15.0 04:15 Intake and Output 11/13/18 11/13/18 11/14/18 1515:00 23:00 07:00 IntakeIntake Total 390 ml 1129.00 ml 1230 ml OutputOutput Total 2015 ml 1600 ml 1000 ml BalanceBalance -1625 ml -471.00 ml 230 ml Exam sedated and intubated Neck: other (at surgical sites, no tarsha redness) Respiratory: clear to auscultation Cardiovascular: regular rate and rhythm Gastrointestinal: soft, bowel sounds Results Result Diagram: 11/14/18 0509 11/13/18 0500 Results 24hrs Laboratory Tests Test 11/14/18 05:09 White Blood Count 8.2 Red Blood Count 2.72 L Hemoglobin 8.1 L Hematocrit 24.6 L Mean Corpuscular Volume 90.4 Mean Corpuscular Hemoglobin 29.8 Mean Corpuscular Hemoglobin Concent 32.9 Red Cell Distribution Width 14.3 Platelet Count 231 Mean Platelet Volume 9.1 Immature Granulocytes % 4.300 H Neutrophils % 53.6 Lymphocytes % 29.6 Monocytes % 10.8 Eosinophils % 1.3 Basophils % 0.4 Nucleated Red Blood Cells % 0.0 Immature Granulocytes # 0.350 H Neutrophils # 4.4 Lymphocytes # 2.4 Monocytes # 0.9 Eosinophils # 0.1 Basophils # 0.0 Nucleated Red Blood Cells # 0.0 Medications Medication Current Medications Sodium Chloride 1,000 ml @ 40 mls/hr Q24H IV Last administered on 11/13/18at 16:00; Admin Dose 40 MLS/HR; Start 11/11/18 at 02:20 Piperacillin Sod/ Tazobactam Sod 100 ml @ 200 mls/hr Q6 IVPB Last administered on 11/14/18at 05:26; Admin Dose 200 MLS/HR; Start 11/11/18 at 02:30 Propofol 100 ml @ 2.508 mls/ hr Q12H IV Last administered on 11/12/18at 07:48; Admin Dose 1.003 MLS/HR; Start 11/11/18 at 06:30 Lorazepam (Ativan) 2 mg Q4 PRN IV ANXIETY Last administered on 11/13/18at 04:17; Admin Dose 2 MG; Start 11/11/18 at 06:30 Fentanyl 100 ml @ 2.5 mls/hr TITRATE IV Last administered on 11/14/18 05:31; Admin Dose 10 MLS/HR; Start 11/11/18 at 09:00 Famotidine (Pepcid Iv) 20 mg BID IV Last administered on 11/13/18 20:45; Admin Dose 20 MG; Start 11/11/18 at 21:00 Ondansetron HCl (Zofran Inj) 4 mg Q6H PRN IV NAUSEA AND/OR VOMITING Last administered on 11/12/18 06:48; Admin Dose 4 MG; Start 11/11/18 at 10:30 Docusate Sodium (Colace) 100 mg BID PO Last administered on 11/13/18 20:45; Admin Dose 100 MG; Start 11/11/18 at 21:00 Midazolam HCl 50 ml @ 1 mls/hr TITRATE IV Last administered on 11/14/18 06:31; Admin Dose 10 MLS/HR; Start 11/11/18 at 16:00 OMAIRA FLYNN MD Nov 14, 2018 06:54
[2018-11-14] MEDS: FAMOTIDINE 20 MG INJ IV SCH ×2 (09:00→21:17)
--- NOTE | 2018-11-14 09:59 | CONS ---
Consult Date/Type/Reason Admit Date/Time Nov 11, 2018 at 02:25 Initial Consult Date 11/11/18 Type of Consult Pulmonary Requesting Provider: HERMAN SEARS Date/Time of Note DATE: 11/14/18 TIME: 09:58 Subjective Drains and dressings removed with significant decrease and facial edema. Patient remains awake alert and oriented on mechanical ventilation. Objective Vital Signs Date Temp Pulse Resp B/P (MAP) Pulse Ox O2 O2 Flow FiO2 Time Delivery Rate 11/14/18 69 08:00 11/14/18 15 96/54 (68) 99 06:30 11/14/18 Mechanical 06:00 Ventilator 11/14/18 30 05:00 11/14/18 98.1 04:00 11/11/18 15.0 04:15 Intake and Output 11/13/18 11/13/18 11/14/18 1515:00 23:00 07:00 IntakeIntake Total 390 ml 1129.00 ml 1230 ml OutputOutput Total 2015 ml 1600 ml 1000 ml BalanceBalance -1625 ml -471.00 ml 230 ml Exam PHYSICAL EXAMINATION: GENERAL: Well-nourished, well-developed gentleman, orally intubated on mechanical ventilation. VITAL SIGNS: SKIN: intact no evidence of erythema decreased edema. CARDIAC: S1, S2, no added sounds or murmurs. CHEST: Diminished air entry bilaterally. No rales or wheezes. ABDOMEN: Soft, nontender. No guarding or rebound. EXTREMITIES: No cyanosis, clubbing, 1+ edema. NEUROLOGIC: No focal deficits. Vent Setting Ventilator Support Mode: AC Fraction of Inspired Oxygen pe: 30 Positive End Expiratory Pressu: 5.0 Results/Medications Result Diagram: 11/14/18 0509 11/14/18 0509 Results 24 hrs Laboratory Tests Test 11/14/18 05:09 White Blood Count 8.2 Red Blood Count 2.72 L Hemoglobin 8.1 L Hematocrit 24.6 L Mean Corpuscular Volume 90.4 Mean Corpuscular Hemoglobin 29.8 Mean Corpuscular Hemoglobin Concent 32.9 Red Cell Distribution Width 14.3 Platelet Count 231 Mean Platelet Volume 9.1 Immature Granulocytes % 4.300 H Neutrophils % 53.6 Lymphocytes % 29.6 Monocytes % 10.8 Eosinophils % 1.3 Basophils % 0.4 Nucleated Red Blood Cells % 0.0 Immature Granulocytes # 0.350 H Neutrophils # 4.4 Lymphocytes # 2.4 Monocytes # 0.9 Eosinophils # 0.1 Basophils # 0.0 Nucleated Red Blood Cells # 0.0 Sodium Level 140 Potassium Level 3.7 Chloride Level 106 Carbon Dioxide Level 29 Anion Gap 5 Blood Urea Nitrogen 14 Creatinine 1.08 Est Glomerular Filtrat Rate mL/min > 60 Glucose Level 93 Calcium Level 8.2 L Phosphorus Level 3.5 Magnesium Level 2.3 Medications Current Medications Sodium Chloride 1,000 ml @ 40 mls/hr Q24H IV Last administered on 11/13/18 16:00; Admin Dose 40 MLS/HR; Start 11/11/18 at 02:20 Piperacillin Sod/ Tazobactam Sod 100 ml @ 200 mls/hr Q6 IVPB Last administered on 11/14/18 05:26; Admin Dose 200 MLS/HR; Start 11/11/18 at 02:30 Propofol 100 ml @ 2.508 mls/ hr Q12H IV Last administered on 11/12/18 07:48; Admin Dose 1.003 MLS/HR; Start 11/11/18 at 06:30 Lorazepam (Ativan) 2 mg Q4 PRN IV ANXIETY Last administered on 11/13/18 04:17; Admin Dose 2 MG; Start 11/11/18 at 06:30 Fentanyl 100 ml @ 2.5 mls/hr TITRATE IV Last administered on 11/14/18 05:31; Admin Dose 10 MLS/HR; Start 11/11/18 at 09:00 Famotidine (Pepcid Iv) 20 mg BID IV Last administered on 11/13/18 20:45; Admin Dose 20 MG; Start 11/11/18 at 21:00 Ondansetron HCl (Zofran Inj) 4 mg Q6H PRN IV NAUSEA AND/OR VOMITING Last administered on 11/12/18 06:48; Admin Dose 4 MG; Start 11/11/18 at 10:30 Docusate Sodium (Colace) 100 mg BID PO Last administered on 11/13/18 20:45; Ad min Dose 100 MG; Start 11/11/18 at 21:00 Midazolam HCl 50 ml @ 1 mls/hr TITRATE IV Last administered on 11/14/18 06:31; Admin Dose 10 MLS/HR; Start 11/11/18 at 16:00 Assessment/Plan Hospital Course (Demo Recall) IMPRESSION 1. Recent neck lift with significant subcutaneous hemorrhage resulting in severe sepsis and airway compression with respiratory distress. Now status post decompression and evacuation of hematoma with drains in place, on mechanical ventilation with severe sepsis. 2. Anemia secondary to above 3. Cuff leak with CPAP weaning trial this morning Plan 1. Continue postoperative antibiotics per infectious diseases. Currently on vancomycin and Zosyn. 2. Weaning trial as noted post extubation incentive spirometry 3. Continue nasogastric tube feeding 4. DVT and GI prophylaxis. 5. Monitor H&H posttransfusion Critical care time 40 minutes. Stable for transfer to contracted ICU. TRENT GARCIA MD, [facility] Nov 14, 2018 09:59
--- NOTE | 2018-11-14 11:40 | PN ---
Date/Time of Note Date/Time of Note DATE: 11/14/18 TIME: 11:35 Assessment/Plan VTE Prophylaxis Risk score (from [facility])>0 risk: 9 SCD applied (from [facility]): Yes Pharmacological prophylaxis: NA/contraindicated Pharm contraindication: bleeding Lines/Catheters IV Catheter Type (from [facility]): Peripheral IV Urinary Cath still in place: Yes Reason Cath still needed: other (indicate) Assessment/Plan Hospital Course assessment and plan: 38-year-old male who presented to the emergency department complaining of a pop in his neck followed by neck swelling 6 days after cosmetic neck surgery. was found to have a rapidly expanding Hematoma and active hemorrhage of postoperative neck and face wounds and was prophylactically intubated in ER and then taken to the OR for urgent evacuation of bilateral neck and face hematomas and control of postoperative hemorrhage of neck . He is stable now and managed in the ICU as follows: 1. Acute resp failure (prophylactic, but may also have aspirated): remains vent dependent -2/2 #2 -continue vent weaning, possible extubation later today 2. Rapidly expanding Hematoma and active hemorrhage of postoperative neck and face wounds status post face/neck lift 11/05/18 -possible vascular injury from CT -patient is now s/p evacuation of bilateral neck and face hematomas and control of postoperative hemorrhage of neck 11/11/[address] Matute -continue to avoid anticoagulation until cleared by surgery -post op wound mgt per surgery, doing well, incision to open air, drain removed 3. Sepsis with lactic acidosis: improved -2/2, acute bleed, strep pyogenes bacteremia, cultures from facial drain also growing strep pyogenes and staph -lactic acid trended to normal -ID managing abx, appreciate input 4. Anemia -hgb dipped slightly, but is stable -transfuse PRN hgb <7.5 FEN: tube feeds, reduce IVF to 40/h Dispo: -hgb and electrolytes stable -Continue ICU supportive care -care time >40 mins Patient is stable fot transfer to [place] once bed is available. Result Diagram: 11/14/18 0509 11/14/18 0509 Results 24hrs Laboratory Tests Test 11/14/18 05:09 White Blood Count 8.2 Red Blood Count 2.72 L Hemoglobin 8.1 L Hematocrit 24.6 L Mean Corpuscular Volume 90.4 Mean Corpuscular Hemoglobin 29.8 Mean Corpuscular Hemoglobin Concent 32.9 Red Cell Distribution Width 14.3 Platelet Count 231 Mean Platelet Volume 9.1 Immature Granulocytes % 4.300 H Neutrophils % 53.6 Lymphocytes % 29.6 Monocytes % 10.8 Eosinophils % 1.3 Basophils % 0.4 Nucleated Red Blood Cells % 0.0 Immature Granulocytes # 0.350 H Neutrophils # 4.4 Lymphocytes # 2.4 Monocytes # 0.9 Eosinophils # 0.1 Basophils # 0.0 Nucleated Red Blood Cells # 0.0 Sodium Level 140 Potassium Level 3.7 Chloride Level 106 Carbon Dioxide Level 29 Anion Gap 5 Blood Urea Nitrogen 14 Creatinine 1.08 Est Glomerular Filtrat Rate mL/min > 60 Glucose Level 93 Calcium Level 8.2 L Phosphorus Level 3.5 Magnesium Level 2.3 Subjective 24 Hr Interval Summary Free Text/Dictation doing much better, swelling improved, sedation turned off for vent weaning, calmer and following commands Exam/Review of Systems Exam Vitals Vital Signs Date Temp Pulse Resp B/P (MAP) Pulse Ox O2 O2 Flow FiO2 Time Delivery Rate 11/14/18 95 12 140/95 99 Mechanical 11:00 (110) Ventilator 11/14/18 98.1 08:00 11/14/18 30 05:00 11/11/18 15.0 04:15 Intake and Output 11/13/18 11/13/18 11/14/18 1515:00 23:00 07:00 IntakeIntake Total 390 ml 1129.00 ml 1230 ml OutputOutput Total 2015 ml 1600 ml 1000 ml BalanceBalance -1625 ml -471.00 ml 230 ml Exam Constitutional: lethargic, will open eyes slowly, nods, follows commands Head: dressing removed, clean surgical sites below stephanie ears, no swelling, no oozing, minimal old crusted blood , still intubated Respiratory: coarse bs., good a/e Cardiovascular: regular rate and rhythm Gastrointestinal: S/ NT / ND / +BS Extremities: trace / minimal edema, good radial pulses Results Results 24hrs Laboratory Tests Test 11/14/18 05:09 White Blood Count 8.2 Red Blood Count 2.72 L Hemoglobin 8.1 L Hematocrit 24.6 L Mean Corpuscular Volume 90.4 Mean Corpuscular Hemoglobin 29.8 Mean Corpuscular Hemoglobin Concent 32.9 Red Cell Distribution Width 14.3 Platelet Count 231 Mean Platelet Volume 9.1 Immature Granulocytes % 4.300 H Neutrophils % 53.6 Lymphocytes % 29.6 Monocytes % 10.8 Eosinophils % 1.3 Basophils % 0.4 Nucleated Red Blood Cells % 0.0 Immature Granulocytes # 0.350 H Neutrophils # 4.4 Lymphocytes # 2.4 Monocytes # 0.9 Eosinophils # 0.1 Basophils # 0.0 Nucleated Red Blood Cells # 0.0 Sodium Level 140 Potassium Level 3.7 Chloride Level 106 Carbon Dioxide Level 29 Anion Gap 5 Blood Urea Nitrogen 14 Creatinine 1.08 Est Glomerular Filtrat Rate mL/min > 60 Glucose Level 93 Calcium Level 8.2 L Phosphorus Level 3.5 Magnesium Level 2.3 Imaging Imaging PROCEDURE: DX Chest 1 View 2330 hours CLINICAL INDICATION: ET tube placement after adjustment. TECHNIQUE: AP Portable chest. COMPARISON: 11/13/2018 at 0553 hours FINDINGS: Endotracheal tube is been advanced, tip is above the neal located at the mid T4 level. Stable cardiac and mediastinal configuration. Aortic calcified plaque absent. Point vascularity is unchanged. Mild bilateral peribronchial thickening. Lung aeration stable. No pneumothorax. Nasogastric tube remains in place with the distal to the GE junction and projecting off the inferior edge of the image. IMPRESSION: 1. Endotracheal tube readjustment, tip now at the mid T4 level, above the neal. 2. Lung aeration stable. 3. NG tube unchanged. RPTAT: HLRS Physician nAival Date Time Electronically viewed and signed by Physician Anival on 11/14/2018 01:16 RS/ CC: DARRYL SANFORD MD [id number] Medications Medication Current Medications Sodium Chloride 1,000 ml @ 40 mls/hr Q24H IV Last administered on 11/13/18at 16:00; Admin Dose 40 MLS/HR; Start 11/11/18 at 02:20 Piperacillin Sod/ Tazobactam Sod 100 ml @ 200 mls/hr Q6 IVPB Last administered on 11/14/18at 05:26; Admin Dose 200 MLS/HR; Start 11/11/18 at 02:30 Propofol 100 ml @ 2.508 mls/ hr Q12H IV Last administered on 11/12/18 07:48; Admin Dose 1.003 MLS/HR; Start 11/11/18 at 06:30 Lorazepam (Ativan) 2 mg Q4 PRN IV ANXIETY Last administered on 11/13/18 04:17; Admin Dose 2 MG; Start 11/11/18 at 06:30 Fentanyl 100 ml @ 2.5 mls/hr TITRATE IV Last administered on 11/14/18 05:31; Admin Dose 10 MLS/HR; Start 11/11/18 at 09:00 Famotidine (Pepcid Iv) 20 mg BID IV Last administered on 11/14/18 09:00; Admin Dose 20 MG; Start 11/11/18 at 21:00 Ondansetron HCl (Zofran Inj) 4 mg Q6H PRN IV NAUSEA AND/OR VOMITING Last administered on 11/12/18 06:48; Admin Dose 4 MG; Start 11/11/18 at 10:30 Midazolam HCl 50 ml @ 1 mls/hr TITRATE IV Last administered on 11/14/18 06:31; Admin Dose 10 MLS/HR; Start 11/11/18 at 16:00 Docusate Sodium (Colace Liquid Cup) 100 mg BID NGT ; Start 11/14/18 at 11:00 KRISTIAN HARRIS Nov 14, 2018 11:40
[2018-11-14] MEDS: DOCUSATE SODIUM 10 MG/ML (10ML CUP) NGT SCH ×2 (12:06→21:00)
[2018-11-14] MEDS: SOD CHLORIDE 0.9% 1,000 ML IV SCH (15:00)
[2018-11-14] MEDS: ONDANSETRON 4 MG INJ IV PRN (16:33)
[2018-11-14] MEDS: LORAZEPAM 2 MG INJ IV PRN (21:17)
--- NOTE | 2018-11-14 23:36 | OPPN ---
Date/Time of Note Date/Time of Note DATE: 11/14/18 TIME: 23:34 Anesthesia Follow up Anesthesia Follow up Last documented vital signs Vital Signs Date Temp Pulse Resp B/P (MAP) Pulse Ox O2 O2 Flow FiO2 Time Delivery Rate 11/14/18 99 22 138/84 89 Room Air 23:00 (102) 11/14/18 98.3 20:00 11/14/18 2.0 17:33 11/14/18 30 11:00 Respiratory function: WNL Cardiovascular function: WNL Comments pt was extubated today, stable. explaine to him regarding diffficult intubation, injury to his tooth and my finger cut JOSE RAUL OLIVARES MD Nov 14, 2018 23:36
[2018-11-15] VITALS (12 sets, daily range): BP systolic 108–139; BP diastolic 65–83; PULSE 72–106; RESP 11–18
[2018-11-15] MEDS: PIPER-TAZO 3.375 GM IV (PMX) 100 ML IVPB SCH ×5 (00:02→23:29)
[2018-11-15] MEDS ORDERED: HALOPERIDOL 5 MG INJ IM ONE (00:48)
--- NOTE | 2018-11-15 07:21 | CONS ---
Assessment/Plan Assessment/Plan Hospital Course (Demo Recall) 1) facial/neck hematoma (infected with group A strep) doubt there is an active infection but will need to treat for possible infection at this time agree with vanco/zosyn at present nasal swal for MRSA has been ordered will get cx from R facial MISHA drain elevated temp and WBC could be due to just the hematoma 11/12 - continue with vanco/zosyn at present R facial drain is NGTD blood cx have GPC present, ID is pending 11/13 - group A strep was present in blood cx, this is a true infection continue with zosyn and d/c vanco MRSA screen was never collected and R facial drain also has group A strep 11/14 - facial drain cx grew CoNS and group A strep continue with zosyn at present can be switched to unasyn a.m. labs show stable Hgb and normal WBC 11/15 - stable but confused, pt was extubated yesterday continue with either zosyn or unasyn pt likely to be transferred [facility] today 2) hematuria with lee only draining blood await urology to re-position lee urine cx has been ordered 11/12 - u/a just shows hematuria, doubt there is an active infection in urine lee has clear urine currently 11/13 - urine is clear 11/14 - urine cx was neg 3) GPC in blood cx (group A strep) 11/12 - await ID, on vanco if staph aureus will re-do blood cx tomorrow 11/13 - Group A strep is present in wound cx and blood cx continue with zosyn alone, no need to repeat blood cx 11/14 - group A strep zosyn can be switched to unasyn at anytime pt likely to be extubated later today and possible tx to [facility] 11/15 - pt remains afebrile and WBC is minimally elevated continue with present management Consultation Date/Type/Reason Admit Date/Time Nov 11, 2018 at 02:25 Initial Consult Date 11/11/18 Type of Consult ID Requesting Provider: HERMAN SEARS Date/Time of Note DATE: 11/15/18 TIME: 07:18 24 HR Interval Summary Free Text/Dictation pt was extubated yesterday pt was confused overnight and pulled out urine lee he got ativan and haldol and has a sitter pt remains confused this a.m. he states the facelift area still has pain he has N but no V no stools breathing is ok Exam/Review of Systems Exam Vitals Vital Signs Date Temp Pulse Resp B/P (MAP) Pulse Ox O2 O2 Flow FiO2 Time Delivery Rate 11/15/18 98.4 79 16 117/78 96 04:14 (91) 11/14/18 Room Air 23:00 11/14/18 21 19:05 11/14/18 2.0 17:33 Intake and Output 11/14/18 11/14/18 11/15/18 1515:00 23:00 07:00 IntakeIntake Total 420 ml 460 ml 40 ml OutputOutput Total 1930 ml 1930 ml 1000 ml BalanceBalance -1510 ml -1470 ml -960 ml Constitutional: alert Psych: confusion Eyes: nl sclera ENMT: mucosa pink and moist Neck: other (surgical sites have slight swelling but no redness) Respiratory: clear to auscultation Cardiovascular: regular rate and rhythm Gastrointestinal: soft, non-tender Results Result Diagram: 11/15/18 0544 11/15/18 0544 Results 24hrs Laboratory Tests Test 11/14/18 11:00 11/15/18 05:44 Blood Gas Specimen Source Blood arterial Arterial Blood Date Drawn 11/14/2018 11:10:48 AM Arterial Blood pH (Temp corrected) 7.440 Arterial Blood pCO2 (Temp correct) 43.5 Arterial Blood pO2 (Temp corrected) 99.2 Arterial Blood HCO3 28.9 H Arterial Blood Base Excess 4.3 H Arterial Blood Oxygen Saturation 97.1 Mack Test ACCEPTAB Arterial Blood Gas Puncture Site Right Radial Arterial Blood Carboxyhemoglobin 0.3 Arterial Blood Methemoglobin 0.4 Blood Gas A-a O2 Differential 63.6 H Oxyhemoglobin Percent 96.4 Blood Gas Temperature 37.0 Blood Gas Actual Respiration Rate 9 Blood Gas Modality VENT - CPAP FiO2 30.0 Blood Gas Low PEEP Setting 5.0 Blood Gas Pressure Support 10 Blood Gas Notified Whom TM Blood Gas Notified Time 11/14/2018 11:43:25 AM White Blood Count 11.8 #H Red Blood Count 3.06 L Hemoglobin 9.0 L Hematocrit 27.0 L Mean Corpuscular Volume 88.2 Mean Corpuscular Hemoglobin 29.4 Mean Corpuscular Hemoglobin Concent 33.3 Red Cell Distribution Width 13.4 Platelet Count 333 # Mean Platelet Volume 8.7 Immature Granulocytes % 4.200 H Neutrophils % 68.5 Lymphocytes % 17.1 Monocytes % 9.2 Eosinophils % 0.7 Basophils % 0.3 Nucleated Red Blood Cells % 0.0 Immature Granulocytes # 0.500 H Neutrophils # 8.1 H Lymphocytes # 2.0 Monocytes # 1.1 H Eosinophils # 0.1 Basophils # 0.0 Nucleated Red Blood Cells # 0.0 Sodium Level 141 Potassium Level 3.8 Chloride Level 103 Carbon Dioxide Level 30 Anion Gap 8 Blood Urea Nitrogen 13 Creatinine 0.84 Est Glomerular Filtrat Rate mL/min > 60 Glucose Level 85 Calcium Level 8.9 Phosphorus Level 5.1 H Magnesium Level 2.4 Medications Medication Current Medications Piperacillin Sod/ Tazobactam Sod 100 ml @ 200 mls/hr Q6 IVPB Last administered on 11/15/18 05:18; Admin Dose 200 MLS/HR; Start 11/11/18 at 02:30 Lorazepam (Ativan) 2 mg Q4 PRN IV ANXIETY Last administered on 11/14/18 21:17; Admin Dose 2 MG; Start 11/11/18 at 06:30 Famotidine (Pepcid Iv) 20 mg BID IV Last administered on 11/14/18 21:17; Admin Dose 20 MG; Start 11/11/18 at 21:00 Ondansetron HCl (Zofran Inj) 4 mg Q6H PRN IV NAUSEA AND/OR VOMITING Last administered on 11/14/18at 16:33; Admin Dose 4 MG; Start 11/11/18 at 10:30 Docusate Sodium (Colace Liquid Cup) 100 mg BID PO ; Start 11/15/18 at 09:00 OMAIRA FLYNN MD Nov 15, 2018 07:21
[2018-11-15] MEDS: FAMOTIDINE 20 MG INJ IV SCH ×2 (08:54→20:29)
[2018-11-15] MEDS: DOCUSATE SODIUM 10 MG/ML (10ML CUP) PO SCH ×3 (08:54→20:29)
[2018-11-15] MEDS ORDERED: morphine 2 MG INJ IV STA (09:13)
[2018-11-15] MEDS ORDERED: HYDROCODONE/APAP (5/325) TAB PO PRN (09:30)
--- NOTE | 2018-11-15 12:24 | PN ---
Date/Time of Note Date/Time of Note DATE: 11/15/18 TIME: 12:11 Assessment/Plan VTE Prophylaxis Risk score (from Ns)>0 risk: 10 SCD applied (from Ns): Yes Pharmacological prophylaxis: NA/contraindicated Pharm contraindication: bleeding Lines/Catheters IV Catheter Type (from Nrsg): Peripheral IV Urinary Cath still in place: Yes Reason Cath still needed: other (indicate) (d/c ) Assessment/Plan Hospital Course subjective: sleepy, was just medicated with morphine for pain Objective : Constitutional: lethargic, will open eyes slowly, nods, follows commands Head: dressing removed, clean surgical sites below stephanie ears, no swelling, no oozing, minimal old crusted blood , still intubated Respiratory: coarse bs., good a/e Cardiovascular: regular rate and rhythm Gastrointestinal: S/ NT / ND / +BS Extremities: trace / minimal edema, good radial pulses assessment and plan: 38-year-old male who presented to the emergency department complaining of a pop in his neck followed by neck swelling 6 days after cosmetic neck surgery. was found to have a rapidly expanding Hematoma and active hemorrhage of pos toperative neck and face wounds and was prophylactically intubated in ER and then taken to the OR for urgent evacuation of bilateral neck and face hematomas and control of postoperative hemorrhage of neck . He is stable now and managed in the ICU as follows: 1. Acute resp failure (prophylactic, but may also have aspirated): -successfully extubated yesterday, -stable on room air so far 2. Rapidly expanding Hematoma and active hemorrhage of postoperative neck and face wounds status post face/neck lift 11/05/18 -possible vascular injury from CT -patient is now s/p evacuation of bilateral neck and face hematomas and control of postoperative hemorrhage of neck 11/11/[address] Matute -continue to avoid anticoagulation until cleared by surgery -post op wound mgt per surgery, doing well, incision to open air, drain removed 3. Sepsis with lactic acidosis: improved -2/2, acute bleed, strep pyogenes bacteremia, cultures from facial drain also growing strep pyogenes and staph -lactic acid trended to normal -ID managing abx, appreciate input 4. Anemia -hgb dipped slightly, but is stable -transfuse PRN hgb <7.5 FEN: has been started on soft diet, PT eval pending -patient is allergic to dairy Dispo: -continue abx per ID -continue supportive care, patient still very lethargic, PT eval -plan to d/c lee when patient is more ambulant -Discussed DC planning with patient, patient does not want to go to a sniff once to be discharged to his own home to the care of his family. He his mother will be flying in over the weekend. -med surg transfer Patient is stable for transfer to [facility] once bed is available. Result Diagram: 11/15/1854311/15/1844 Results 24hrs Laboratory Tests Test 11/15/18 05:44 White Blood Count 11.8 #H Red Blood Count 3.06 L Hemoglobin 9.0 L Hematocrit 27.0 L Mean Corpuscular Volume 88.2 Mean Corpuscular Hemoglobin 29.4 Mean Corpuscular Hemoglobin Concent 33.3 Red Cell Distribution Width 13.4 Platelet Count 333 # Mean Platelet Volume 8.7 Immature Granulocytes % 4.200 H Neutrophils % 68.5 Lymphocytes % 17.1 Monocytes % 9.2 Eosinophils % 0.7 Basophils % 0.3 Nucleated Red Blood Cells % 0.0 Immature Granulocytes # 0.500 H Neutrophils # 8.1 H Lymphocytes # 2.0 Monocytes # 1.1 H Eosinophils # 0.1 Basophils # 0.0 Nucleated Red Blood Cells # 0.0 Sodium Level 141 Potassium Level 3.8 Chloride Level 103 Carbon Dioxide Level 30 Anion Gap 8 Blood Urea Nitrogen 13 Creatinine 0.84 Est Glomerular Filtrat Rate mL/min > 60 Glucose Level 85 Calcium Level 8.9 Phosphorus Level 5.1 H Magnesium Level 2.4 Exam/Review of Systems Exam Vitals Vital Signs Date Temp Pulse Resp B/P (MAP) Pulse Ox O2 O2 Flow FiO2 Time Delivery Rate 11/15/18 80 12:07 11/15/18 98.4 17 126/72 98 11:40 (90) 11/15/18 Room Air 07:44 11/14/18 21 19:05 11/14/18 2.0 17:33 Intake and Output 11/14/18 11/14/18 11/15/18 1515:00 23:00 07:00 IntakeIntake Total 420 ml 460 ml 40 ml OutputOutput Total 1930 ml 1930 ml 1000 ml BalanceBalance -1510 ml -1470 ml -960 ml Results Results 24hrs Laboratory Tests Test 11/15/18 05:44 White Blood Count 11.8 #H Red Blood Count 3.06 L Hemoglobin 9.0 L Hematocrit 27.0 L Mean Corpuscular Volume 88.2 Mean Corpuscular Hemoglobin 29.4 Mean Corpuscular Hemoglobin Concent 33.3 Red Cell Distribution Width 13.4 Platelet Count 333 # Mean Platelet Volume 8.7 Immature Granulocytes % 4.200 H Neutrophils % 68.5 Lymphocytes % 17.1 Monocytes % 9.2 Eosinophils % 0.7 Basophils % 0.3 Nucleated Red Blood Cells % 0.0 Immature Granulocytes # 0.500 H Neutrophils # 8.1 H Lymphocytes # 2.0 Monocytes # 1.1 H Eosinophils # 0.1 Basophils # 0.0 Nucleated Red Blood Cells # 0.0 Sodium Level 141 Potassium Level 3.8 Chloride Level 103 Carbon Dioxide Level 30 Anion Gap 8 Blood Urea Nitrogen 13 Creatinine 0.84 Est Glomerular Filtrat Rate mL/min > 60 Glucose Level 85 Calcium Level 8.9 Phosphorus Level 5.1 H Magnesium Level 2.4 Medications Medication Current Medications Piperacillin Sod/ Tazobactam Sod 100 ml @ 200 mls/hr Q6 IVPB Last administered on 11/15/18at 05:18; Admin Dose 200 MLS/HR; Start 11/11/18 at 02:30 Lorazepam (Ativan) 2 mg Q4 PRN IV ANXIETY Last administered on 11/14/18at 21:17; Admin Dose 2 MG; Start 11/11/18 at 06:30 Famotidine (Pepcid Iv) 20 mg BID IV Last administered on 11/15/18at 08:54; Admin Dose 20 MG; Start 11/11/18 at 21:00 Ondansetron HCl (Zofran Inj) 4 mg Q6H PRN IV NAUSEA AND/OR VOMITING Last administered on 11/14/18at 16:33; Admin Dose 4 MG; Start 11/11/18 at 10:30 Docusate Sodium (Colace Liquid Cup) 100 mg BID PO ; Start 11/15/18 at 09:00 Acetaminophen/ Hydrocodone Bitart ([place] (5/325)) 1 tab Q6H PRN PO MODERATE PAIN LEVEL 4-6; Start 11/15/18 at 09:30 KRISTIAN HARRIS Nov 15, 2018 12:24
--- NOTE | 2018-11-15 12:33 | CONS ---
Consult Date/Type/Reason Admit Date/Time Nov 11, 2018 at 02:25 Initial Consult Date 11/11/18 Type of Consult Pulmonary Requesting Provider: HERMAN SEARS Date/Time of Note DATE: 11/15/18 TIME: 12:31 Subjective Patient remained stable post extubation. Objective Vital Signs Date Temp Pulse Resp B/P (MAP) Pulse Ox O2 O2 Flow FiO2 Time Delivery Rate 11/15/18 80 12:07 11/15/18 98.4 17 126/72 98 11:40 (90) 11/15/18 Room Air 07:44 11/14/18 21 19:05 11/14/18 2.0 17:33 Intake and Output 11/14/18 11/14/18 11/15/18 1515:00 23:00 07:00 IntakeIntake Total 420 ml 460 ml 40 ml OutputOutput Total 1930 ml 1930 ml 1000 ml BalanceBalance -1510 ml -1470 ml -960 ml Exam PHYSICAL EXAMINATION: GENERAL: Well-nourished, well-developed gentleman, VITAL SIGNS: SKIN: intact no evidence of erythema decreased edema. CARDIAC: S1, S2, no added sounds or murmurs. CHEST: Diminished air entry bilaterally. No rales or wheezes. ABDOMEN: Soft, nontender. No guarding or rebound. EXTREMITIES: No cyanosis, clubbing, 1+ edema. NEUROLOGIC: No focal deficits. Vent Setting Ventilator Support Mode: CPAP, PS Fraction of Inspired Oxygen pe: 21 Positive End Expiratory Pressu: 5.0 Results/Medications Result Diagram: 11/15/18 0544 11/15/18 0544 Results 24 hrs Laboratory Tests Test 11/15/18 05:44 White Blood Count 11.8 #H Red Blood Count 3.06 L Hemoglobin 9.0 L Hematocrit 27.0 L Mean Corpuscular Volume 88.2 Mean Corpuscular Hemoglobin 29.4 Mean Corpuscular Hemoglobin Concent 33.3 Red Cell Distribution Width 13.4 Platelet Count 333 # Mean Platelet Volume 8.7 Immature Granulocytes % 4.200 H Neutrophils % 68.5 Lymphocytes % 17.1 Monocytes % 9.2 Eosinophils % 0.7 Basophils % 0.3 Nucleated Red Blood Cells % 0.0 Immature Granulocytes # 0.500 H Neutrophils # 8.1 H Lymphocytes # 2.0 Monocytes # 1.1 H Eosinophils # 0.1 Basophils # 0.0 Nucleated Red Blood Cells # 0.0 Sodium Level 141 Potassium Level 3.8 Chloride Level 103 Carbon Dioxide Level 30 Anion Gap 8 Blood Urea Nitrogen 13 Creatinine 0.84 Est Glomerular Filtrat Rate mL/min > 60 Glucose Level 85 Calcium Level 8.9 Phosphorus Level 5.1 H Magnesium Level 2.4 Medications Current Medications Piperacillin Sod/ Tazobactam Sod 100 ml @ 200 mls/hr Q6 IVPB Last administered on 11/15/18at 05:18; Admin Dose 200 MLS/HR; Start 11/11/18 at 02:30 Lorazepam (Ativan) 2 mg Q4 PRN IV ANXIETY Last administered on 11/14/18at 21:17; Admin Dose 2 MG; Start 11/11/18 at 06:30 Famotidine (Pepcid Iv) 20 mg BID IV Last administered on 11/15/18at 08:54; Admin Dose 20 MG; Start 11/11/18 at 21:00 Ondansetron HCl (Zofran Inj) 4 mg Q6H PRN IV NAUSEA AND/OR VOMITING Last administered on 11/14/18at 16:33; Admin Dose 4 MG; Start 11/11/18 at 10:30 Docusate Sodium (Colace Liquid Cup) 100 mg BID PO ; Start 11/15/18 at 09:00 Acetaminophen/ Hydrocodone Bitart ([place] (5/325)) 1 tab Q6H PRN PO MODERATE PAIN LEVEL 4-6; Start 11/15/18 at 09:30 Assessment/Plan Hospital Course (Demo Recall) IMPRESSION 1. Recent neck lift with significant subcutaneous hemorrhage resulting in severe sepsis and airway compression with respiratory distress. Now status post decompression and evacuation of hematoma with drains in place, on mechanical ventilation with severe sepsis. 2. Anemia secondary to above 3. Resolved upper airway edema Plan 1. Aspiration precautions 2. Encourage out of bed 3. Advance diet as tolerated 4. DVT and GI prophylaxis. 5. Antibiotics per ID Stable for transfer to [facility] or [facility] TRENT GARCIA MD, [facility] Nov 15, 2018 12:33
[2018-11-15] MEDS: ONDANSETRON 4 MG INJ IV PRN (13:12)
--- NOTE | 2018-11-15 19:05 | CONS ---
Consult Date/Type/Reason Admit Date/Time Nov 11, 2018 at 02:25 Initial Consult Date 11/11/18 Type of Consultation: Urology Reason for Consultation Hematuria Requesting Provider: HERMAN SEARS Date/Time of Note DATE: 11/15/18 TIME: 19:00 Subjective Patient is awake ,alert and comfortable. The Paredes catheter that he had was removed and he has been voiding small amount of clear urine. Objective Vitals Vital Signs Date Temp Pulse Resp B/P (MAP) Pulse Ox O2 O2 Flow FiO2 Time Delivery Rate 11/15/18 98 18 127/80 96 17:19 (96) 11/15/18 98.3 15:19 11/15/18 Room Air 07:44 11/14/18 21 19:05 11/14/18 2.0 17:33 Intake and Output 11/14/18 11/14/18 11/15/18 1515:00 23:00 07:00 IntakeIntake Total 420 ml 460 ml 40 ml OutputOutput Total 1930 ml 1930 ml 1000 ml BalanceBalance -1510 ml -1470 ml -960 ml Exam Abdomen is soft, the bladder is not distended Results/Medications Result Diagram: 11/15/18 0544 11/15/18 0544 Results 24 hrs Laboratory Tests Test 11/15/18 05:44 White Blood Count 11.8 #H Red Blood Count 3.06 L Hemoglobin 9.0 L Hematocrit 27.0 L Mean Corpuscular Volume 88.2 Mean Corpuscular Hemoglobin 29.4 Mean Corpuscular Hemoglobin Concent 33.3 Red Cell Distribution Width 13.4 Platelet Count 333 # Mean Platelet Volume 8.7 Immature Granulocytes % 4.200 H Neutrophils % 68.5 Lymphocytes % 17.1 Monocytes % 9.2 Eosinophils % 0.7 Basophils % 0.3 Nucleated Red Blood Cells % 0.0 Immature Granulocytes # 0.500 H Neutrophils # 8.1 H Lymphocytes # 2.0 Monocytes # 1.1 H Eosinophils # 0.1 Basophils # 0.0 Nucleated Red Blood Cells # 0.0 Sodium Level 141 Potassium Level 3.8 Chloride Level 103 Carbon Dioxide Level 30 Anion Gap 8 Blood Urea Nitrogen 13 Creatinine 0.84 Est Glomerular Filtrat Rate mL/min > 60 Glucose Level 85 Calcium Level 8.9 Phosphorus Level 5.1 H Magnesium Level 2.4 Medications Current Medications Piperacillin Sod/ Tazobactam Sod 100 ml @ 200 mls/hr Q6 IVPB Last administered on 11/15/18 17:19; Admin Dose 200 MLS/HR; Start 11/11/18 at 02:30 Lorazepam (Ativan) 2 mg Q4 PRN IV ANXIETY Last administered on 11/14/18 21:17; Admin Dose 2 MG; Start 11/11/18 at 06:30 Famotidine (Pepcid Iv) 20 mg BID IV Last administered on 11/15/18 08:54; Admin Dose 20 MG; Start 11/11/18 at 21:00 Ondansetron HCl (Zofran Inj) 4 mg Q6H PRN IV NAUSEA AND/OR VOMITING Last administered on 11/15/18 13:12; Admin Dose 4 MG; Start 11/11/18 at 10:30 Docusate Sodium (Colace Liquid Cup) 100 mg BID PO Last administered on 11/15/18 17:19; Admin Dose 100 MG; Start 11/15/18 at 09:00 Acetaminophen/ Hydrocodone Bitart ([place] (5/325)) 1 tab Q6H PRN PO MODERATE PAIN LEVEL 4-6 Last administered on 11/15/18 13:18; Admin Dose 1 TAB; Start 11/15/18 at 09:30 Assessment/Plan Hospital Course (Demo Recall) 38-year-old male underwent 1. Evacuation of bilateral neck and face hematomas 2. Control of postoperative hemorrhage of neck 3. Complex closure of bilateral face and neck incisions Patient did have neck and face left about 6 days ago. He presented to the emergency room with swelling of his neck and underwent the above procedure. In the emergency room they inserted a Paredes catheter and when the patient was transferred to the ICU after his surgery his Paredes catheter was noted to be draining blood therefore a urological consultation was requested. Presently the patient is intubated and is on a respirator but he is awake and follows commands. I did review his history and his medical record. On the examination the bladder was distended up to the umbilicus. The Paredes catheter that he had was not all the way inside the bladder with the balloon inflated in the urethra. Therefore I went ahead and remove the Paredes catheter then to prep the genital area and draped it in a sterile way. I injected 20 mL of 2% lidocaine jelly for local anesthesia then I tried to insert the 16 [place] coud catheter but that would not go in as it was going in the same false passage that was created by the traumatic insertion of the prior catheter. Then I tried a 14 [place] coud catheter and after some manipulation I was able to get it into the bladder. The patient has improved a lot since admission. The Paredes catheter was removed and the patient is now voiding on his own and the urine is clear. JANIE ARANDA MD Nov 15, 2018 19:05
[2018-11-15] MEDS ORDERED: ZOLPIDEM 5 MG TAB PO ONE (23:06)
[2018-11-16 03:42] VITALS: BP 110/56; PULSE 80; RESP 16
[2018-11-16] MEDS: PIPER-TAZO 3.375 GM IV (PMX) 100 ML IVPB SCH (06:09)
--- NOTE | 2018-11-16 07:15 | CONS ---
Assessment/Plan Assessment/Plan Hospital Course (Demo Recall) 1) facial/neck hematoma (infected with group A strep) doubt there is an active infection but will need to treat for possible infection at this time agree with vanco/zosyn at present nasal swal for MRSA has been ordered will get cx from R facial MISHA drain elevated temp and WBC could be due to just the hematoma 11/12 - continue with vanco/zosyn at present R facial drain is NGTD blood cx have GPC present, ID is pending 11/13 - group A strep was present in blood cx, this is a true infection continue with zosyn and d/c vanco MRSA screen was never collected and R facial drain also has group A strep 11/14 - facial drain cx grew CoNS and group A strep continue with zosyn at present can be switched to unasyn a.m. labs show stable Hgb and normal WBC 11/15 - stable but confused, pt was extubated yesterday continue with either zosyn or unasyn pt likely to be transferred to [facility] today 11/16 - d/c zosyn, start unasyn and if pt does well or is not tx to [facility] today will consider change to po augmentin tomorrow pt will need two week course of his antibiotics total (thru 11/24/18) 2) hematuria with lee only draining blood await urology to re-position lee urine cx has been ordered 11/12 - u/a just shows hematuria, doubt there is an active infection in urine lee has clear urine currently 11/13 - urine is clear 11/14 - urine cx was neg 3) GPC in blood cx (group A strep) 11/12 - await ID, on vanco if staph aureus will re-do blood cx tomorrow 11/13 - Group A strep is present in wound cx and blood cx continue with zosyn alone, no need to repeat blood cx 11/14 - group A strep zosyn can be switched to unasyn at anytime pt likely to be extubated later today and possible tx to [facility] 11/15 - pt remains afebrile and WBC is minimally elevated continue with present management 11/16 - change zosyn to unasyn Consultation Date/Type/Reason Admit Date/Time Nov 11, 2018 at 02:25 Initial Consult Date 11/11/18 Type of Consult ID Requesting Provider: HERMAN SEARS Date/Time of Note DATE: 11/16/18 TIME: 07:12 24 HR Interval Summary Free Text/Dictation pt is more lucid but still confused about recent hx, he thought he had been tx from [facility] to [facility] no N, V pain to jaw is not too bad took a laxative yesterday which worked Exam/Review of Systems Exam Vitals Vital Signs Date Temp Pulse Resp B/P (MAP) Pulse Ox O2 O2 Flow FiO2 Time Delivery Rate 11/16/18 97.5 80 16 110/56 95 03:42 (74) 11/15/18 Room Air 07:44 11/14/18 21 19:05 11/14/18 2.0 17:33 Intake and Output 11/15/18 11/15/18 11/16/18 1515:00 23:00 07:00 IntakeIntake Total 100 ml 100 ml OutputOutput Total 1000 ml 1400 ml 1200 ml BalanceBalance -1000 ml -1300 ml -1100 ml Constitutional: alert Eyes: nl sclera ENMT: mucosa pink and moist Respiratory: clear to auscultation Cardiovascular: regular rate and rhythm Gastrointestinal: soft Results Result Diagram: 11/16/18 0508 11/16/18 0509 Results 24hrs Laboratory Tests Test 11/16/18 05:08 11/16/18 05:09 White Blood Count 10.9 H Red Blood Count 3.25 L Hemoglobin 9.7 L Hematocrit 28.8 L Mean Corpuscular Volume 88.6 Mean Corpuscular Hemoglobin 29.8 Mean Corpuscular Hemoglobin Concent 33.7 Red Cell Distribution Width 13.3 Platelet Count 361 Mean Platelet Volume 9.0 Immature Granulocytes % 3.900 H Neutrophils % 64.6 Lymphocytes % 19.6 Monocytes % 9.4 Eosinophils % 2.0 Basophils % 0.5 Nucleated Red Blood Cells % 0.0 Immature Granulocytes # 0.430 H Neutrophils # 7.0 Lymphocytes # 2.1 Monocytes # 1.0 H Eosinophils # 0.2 Basophils # 0.1 Nucleated Red Blood Cells # 0.0 Sodium Level 141 Potassium Level 3.2 L Chloride Level 105 Carbon Dioxide Level 29 Anion Gap 7 Blood Urea Nitrogen 10 Creatinine 0.94 Est Glomerular Filtrat Rate mL/min > 60 Glucose Level 117 Calcium Level 8.9 Magnesium Level 2.5 Medications Medication Current Medications Piperacillin Sod/ Tazobactam Sod 100 ml @ 200 mls/hr Q6 IVPB Last administered on 11/16/18 06:09; Admin Dose 200 MLS/HR; Start 11/11/18 at 02:30 Lorazepam (Ativan) 2 mg Q4 PRN IV ANXIETY Last administered on 11/14/18 21:17; Admin Dose 2 MG; Start 11/11/18 at 06:30 Famotidine (Pepcid Iv) 20 mg BID IV Last administered on 11/15/18 20:29; Admin Dose 20 MG; Start 11/11/18 at 21:00 Ondansetron HCl (Zofran Inj) 4 mg Q6H PRN IV NAUSEA AND/OR VOMITING Last administered on 11/15/18 13:12; Admin Dose 4 MG; Start 11/11/18 at 10:30 Docusate Sodium (Colace Liquid Cup) 100 mg BID PO Last administered on 11/15/18 17:19; Admin Dose 100 MG; Start 11/15/18 at 09:00 Acetaminophen/ Hydrocodone Bitart ([place] (5/325)) 1 tab Q6H PRN PO MODERATE PAIN LEVEL 4-6 Last administered on 11/15/18 13:18; Admin Dose 1 TAB; Start 11/15/18 at 09:30 OMAIRA FLYNN MD Nov 16, 2018 07:15
[2018-11-16] MEDS ORDERED: POTASSIUM CHLORIDE (SR) 20 MEQ TAB PO STA (07:46)
[2018-11-16 08:00] VITALS: BP 130/89; PULSE 84; RESP 17
[2018-11-16] MEDS: DOCUSATE SODIUM 10 MG/ML (10ML CUP) PO SCH (10:14)
[2018-11-16] MEDS: FAMOTIDINE 20 MG INJ IV SCH (10:14)
--- NOTE | 2018-11-16 11:17 | CONS ---
Assessment/Plan Assessment/Plan Assessment/Plan (Daily) Assessment and recommendations; 1. Patient admitted with neck hematoma/abscess after undergoing general operative procedure. Wound Gram stain as well as blood culture positive for strep pyogenes. Patient has improved remarkably overall. Continue with supportive care. Antibiotics per ID recommendations. Patient apparently is in the process of being discharged home on oral antibiotics. Consultation Date/Type/Reason Admit Date/Time Nov 11, 2018 at 02:25 Initial Consult Date 11/11/18 Reason for Consultation Pulmonary Requesting Provider: HERMAN SEARS Date/Time of Note DATE: 11/16/18 TIME: 11:15 Exam/Review of Systems Exam Vitals Vital Signs Date Temp Pulse Resp B/P (MAP) Pulse Ox O2 O2 Flow FiO2 Time Delivery Rate 11/16/18 97.5 84 17 130/89 99 Room Air 08:00 (103) 11/14/18 21 19:05 11/14/18 2.0 17:33 Intake and Output 11/15/18 11/15/18 11/16/18 1515:00 23:00 07:00 IntakeIntake Total 100 ml 100 ml OutputOutput Total 1000 ml 1400 ml 1200 ml BalanceBalance -1000 ml -1300 ml -1100 ml Exam Patient's condition is stable. Denies any shortness of breath, dysphagia, neck pain. Any difficulty swallowing. General exam; young male, awake alert, currently in no distress. HEENT exam; supple neck, no JVD. No lymphadenopathy. Midline trachea. No thyromegaly. Patient with good dentition. No stridor. No neck soft tissue swelling seen. Chest exam clear to auscultation. S1-S2 audible, no murmurs. Regular rhythm. Abdomen exam; soft, nontender. No organomegaly. Bowel sounds audible. Extremity exam; peripheral edema clubbing. [employer] exam; no focal deficit. Results Result Diagram: 11/16/18 0508 11/16/18 0509 Results 24hrs Laboratory Tests Test 11/16/18 05:08 11/16/18 05:09 White Blood Count 10.9 H Red Blood Count 3.25 L Hemoglobin 9.7 L Hematocrit 28.8 L Mean Corpuscular Volume 88.6 Mean Corpuscular Hemoglobin 29.8 Mean Corpuscular Hemoglobin Concent 33.7 Red Cell Distribution Width 13.3 Platelet Count 361 Mean Platelet Volume 9.0 Immature Granulocytes % 3.900 H Neutrophils % 64.6 Lymphocytes % 19.6 Monocytes % 9.4 Eosinophils % 2.0 Basophils % 0.5 Nucleated Red Blood Cells % 0.0 Immature Granulocytes # 0.430 H Neutrophils # 7.0 Lymphocytes # 2.1 Monocytes # 1.0 H Eosinophils # 0.2 Basophils # 0.1 Nucleated Red Blood Cells # 0.0 Sodium Level 141 Potassium Level 3.2 L Chloride Level 105 Carbon Dioxide Level 29 Anion Gap 7 Blood Urea Nitrogen 10 Creatinine 0.94 Est Glomerular Filtrat Rate mL/min > 60 Glucose Level 117 Calcium Level 8.9 Magnesium Level 2.5 Medications Medication Current Medications Lorazepam (Ativan) 2 mg Q4 PRN IV ANXIETY Last administered on 11/14/18 21:17; Admin Dose 2 MG; Start 11/11/18 at 06:30 Famotidine (Pepcid Iv) 20 mg BID IV Last administered on 11/16/18 10:14; Admin Dose 20 MG; Start 11/11/18 at 21:00 Ondansetron HCl (Zofran Inj) 4 mg Q6H PRN IV NAUSEA AND/OR VOMITING Last administered on 11/15/18 13:12; Admin Dose 4 MG; Start 11/11/18 at 10:30 Docusate Sodium (Colace Liquid Cup) 100 mg BID PO Last administered on 11/16/18 10:14; Admin Dose 100 MG; Start 11/15/18 at 09:00 Acetaminophen/ Hydrocodone Bitart ([place] (5/325)) 1 tab Q6H PRN PO MODERATE PAIN LEVEL 4-6 Last administered on 11/15/18 13:18; Admin Dose 1 TAB; Start 11/15/18 at 09:30 Ampicillin Sodium/ Sulbactam Sodium 100 ml @ 100 mls/hr Q6 IVPB ; Start 11/16/18 at 12:00 MICHAEL MACKENZIE Nov 16, 2018 11:17
[2018-11-16] MEDS ORDERED: AMOX1TAB10 PO (11:20)
--- NOTE | 2018-11-16 11:20 | PDOCDIS ---
Discharge Instructions CONDITION [id number] Patient Condition: [id number] Good HOME CARE INSTRUCTIONS: [id number] Diet Instructions: [id number] Regular ACTIVITY: [id number] Activity Restrictions: [id number] No Restrictions FOLLOW UP/APPOINTMENTS Follow-up Plan Follow-up with PCP 1-2 weeks TIEN DAVIS Nov 16, 2018 11:20
[2018-11-16] MEDS ORDERED: AMPICILLIN/SULB 3 GM/NS (PMX) 100 ML IVPB SCH (12:00)
--- NOTE | 2018-11-16 12:37 | CONS ---
Consult Date/Type/Reason Admit Date/Time Nov 11, 2018 at 02:25 Initial Consult Date 11/11/18 Type of Consultation: Urology Reason for Consultation Urethral bleeding Requesting Provider: HERMAN SEARS Date/Time of Note DATE: 11/16/18 TIME: 12:34 Subjective Patient is awake and alert. He is voiding well and denies any dysuria Objective Vitals Vital Signs Date Temp Pulse Resp B/P (MAP) Pulse Ox O2 O2 Flow FiO2 Time Delivery Rate 11/16/18 97.5 84 17 130/89 99 Room Air 08:00 (103) 11/14/18 21 19:05 11/14/18 2.0 17:33 Intake and Output 11/15/18 11/15/18 11/16/18 1515:00 23:00 07:00 IntakeIntake Total 100 ml 100 ml OutputOutput Total 1000 ml 1400 ml 1200 ml BalanceBalance -1000 ml -1300 ml -1100 ml Exam The abdomen is soft. Urine is clear Results/Medications Result Diagram: 11/16/18 0508 11/16/18 0509 Results 24 hrs Laboratory Tests Test 11/16/18 05:08 11/16/18 05:09 White Blood Count 10.9 H Red Blood Count 3.25 L Hemoglobin 9.7 L Hematocrit 28.8 L Mean Corpuscular Volume 88.6 Mean Corpuscular Hemoglobin 29.8 Mean Corpuscular Hemoglobin Concent 33.7 Red Cell Distribution Width 13.3 Platelet Count 361 Mean Platelet Volume 9.0 Immature Granulocytes % 3.900 H Neutrophils % 64.6 Lymphocytes % 19.6 Monocytes % 9.4 Eosinophils % 2.0 Basophils % 0.5 Nucleated Red Blood Cells % 0.0 Immature Granulocytes # 0.430 H Neutrophils # 7.0 Lymphocytes # 2.1 Monocytes # 1.0 H Eosinophils # 0.2 Basophils # 0.1 Nucleated Red Blood Cells # 0.0 Sodium Level 141 Potassium Level 3.2 L Chloride Level 105 Carbon Dioxide Level 29 Anion Gap 7 Blood Urea Nitrogen 10 Creatinine 0.94 Est Glomerular Filtrat Rate mL/min > 60 Glucose Level 117 Calcium Level 8.9 Magnesium Level 2.5 Home Meds Active Scripts Amoxicillin/Potassium Clav (Amox-Clav 875-125 mg Tablet) 875-125 mg Tab, 1 TAB PO BID for 8 Days, #16 TAB Prov:TIEN DAVIS 11/16/18 Medications Current Medications Lorazepam (Ativan) 2 mg Q4 PRN IV ANXIETY Last administered on 11/14/18 21:17; Admin Dose 2 MG; Start 11/11/18 at 06:30 Famotidine (Pepcid Iv) 20 mg BID IV Last administered on 11/16/18 10:14; Admin Dose 20 MG; Start 11/11/18 at 21:00 Ondansetron HCl (Zofran Inj) 4 mg Q6H PRN IV NAUSEA AND/OR VOMITING Last administered on 11/15/18 13:12; Admin Dose 4 MG; Start 11/11/18 at 10:30 Docusate Sodium (Colace Liquid Cup) 100 mg BID PO Last administered on 11/16/18 10:14; Admin Dose 100 MG; Start 11/15/18 at 09:00 Acetaminophen/ Hydrocodone Bitart ([place] (5/325)) 1 tab Q6H PRN PO MODERATE PAIN LEVEL 4-6 Last administered on 11/15/18 13:18; Admin Dose 1 TAB; Start 11/15/18 at 09:30 Ampicillin Sodium/ Sulbactam Sodium 100 ml @ 100 mls/hr Q6 IVPB ; Start 11/16/18 at 12:00 Assessment/Plan Hospital Course (Demo Recall) 38-year-old male underwent 1. Evacuation of bilateral neck and face hematomas 2. Control of postoperative hemorrhage of neck 3. Complex closure of bilateral face and neck incisions Patient did have neck and face left about 6 days ago. He presented to the emergency room with swelling of his neck and underwent the above procedure. In the emergency room they inserted a Paredes catheter and when the patient was transferred to the ICU after his surgery his Paredes catheter was noted to be draining blood therefore a urological consultation was requested. The patient did have a Paredes catheter and inserted and then once a urine was clear the catheter was removed and since then he has been voiding and the urine has been clear. Patient is much more comfortable at the present and he denies any dysuria or hematuria. Therefore from a urological standpoint I will sign off and if need to see him again please let me know JANIE ARANDA MD Nov 16, 2018 12:37
--- NOTE | 2018-11-16 12:38 | DS ---
Date/Time of Note Date/Time of Note DATE: 11/16/18 TIME: 12:36 Discharge Summary Admission/Discharge Info Admit Date/Time Nov 11, 2018 at 02:25 Discharge Date/Time November 16, 2018 Discharge Diagnosis 38-year-old male who presented to the emergency department complaining of a pop in his neck followed by neck swelling 6 days after cosmetic neck surgery. was found to have a rapidly expanding Hematoma and active hemorrhage of postoperative neck and face wounds and was prophylactically intubated in ER and then taken to the OR for urgent evacuation of bilateral neck and face hematomas and control of postoperative hemorrhage of neck . He is stable now and managed in the ICU as follows: 1. Acute resp failure -successfully extubated -stable on room air so far 2. Rapidly expanding Hematoma and active hemorrhage of postoperative neck and face wounds status post face/neck lift 11/05/18 -possible vascular injury from CT -patient is now s/p evacuation of bilateral neck and face hematomas and control of postoperative hemorrhage of neck 11/11/[address] Matute -continue to avoid anticoagulation until cleared by surgery -post op wound mgt per surgery, doing well, incision to open air, drain removed 3. Sepsis with lactic acidosis: improved -2/2, acute bleed, strep pyogenes bacteremia, cultures from facial drain also growing strep pyogenes and staph -lactic acid trended to normal -ID managing abx, appreciate input, DC with Augmentin 4. Anemia -hgb dipped slightly, but is stable Patient Condition: Good Hospital Course Patient is a 38-year-old male who presented to the emergency department complaining of a pop in his neck followed by neck swelling 6 days after cosmetic neck surgery. was found to have a rapidly expanding Hematoma and active hemorrhage of postoperative neck and face wounds and was prophylactically intubated in ER and then taken to the OR for urgent evacuation of bilateral neck and face hematomas and control of postoperative hemorrhage of neck . Patient stabilized and was extubated. Patient blood culture was positive for strep pyogenes and was placed on IV antibiotics per ID. Patient was stable for DC to home with p.o. antibiotics, on the day of discharge patient's vitals, labs and physical exam are stable. Home Meds Active Scripts Amoxicillin/Potassium Clav (Amox-Clav 875-125 mg Tablet) 875-125 mg Tab, 1 TAB PO BID for 8 Days, #16 TAB Prov:TIEN DAVIS 11/16/18 Follow-up Plan Follow-up with PCP 1-2 weeks Primary Care Provider Care Physician No Primary Time spent on discharge: > 30 minutes TIEN DAVIS Nov 16, 2018 12:38
== END 2018-11-16 13:17 | disposition home or self-care (01) | DRG 907 ==
LOC: E/R 00:06 → ICU 02:25 → 6WM 11-15 01:23 → PP2 11-15 17:07
PROVIDERS: ADMIT Family Medicine; ATTEND Family Medicine
PROC: 0W360ZZ Control Bleeding in Neck, Open Approach (ICD-10-PCS; 2018-11-11)
PROC: 5A1945Z Respiratory Ventilation, 24-96 Consecutive Hours (ICD-10-PCS; 2018-11-11)
PROC: 0BH17EZ Insertion of Endotracheal Airway into Trachea, Via Natural or Artificial Opening (ICD-10-PCS; 2018-11-11)
PROC: 30233N1 Transfusion of Nonautologous Red Blood Cells into Peripheral Vein, Percutaneous Approach (ICD-10-PCS; 2018-11-11)
PROC: 0TPB70Z Removal of Drainage Device from Bladder, Via Natural or Artificial Opening (ICD-10-PCS; 2018-11-11)
PROC: 0T9B70Z Drainage of Bladder with Drainage Device, Via Natural or Artificial Opening (ICD-10-PCS; 2018-11-11)
PROC: 0W320ZZ Control Bleeding in Face, Open Approach (ICD-10-PCS; principal; 2018-11-11 03:00)
DX: L76.22 Postprocedural hemorrhage of skin and subcutaneous tissue following other procedure (principal); J96.00 Acute respiratory failure, unspecified whether with hypoxia or hypercapnia; A41.9 Sepsis, unspecified organism; R65.20 Severe sepsis without septic shock; T81.31XA Disruption of external operation (surgical) wound, not elsewhere classified, initial encounter; T81.49XA Infection following a procedure, other surgical site, initial encounter; D62 Acute posthemorrhagic anemia; L76.32 Postprocedural hematoma of skin and subcutaneous tissue following other procedure; B95.0 Streptococcus, group A, as the cause of diseases classified elsewhere; J45.909 Unspecified asthma, uncomplicated; R31.9 Hematuria, unspecified; R22.1 Localized swelling, mass and lump, neck; Y83.8 Other surgical procedures as the cause of abnormal reaction of the patient, or of later complication, without mention of misadventure at the time of the procedure
CPT/HCPCS: 31500; 36415; 36430; 36600; 70498; 71045; 80048; 80053; 80202; 81001; 82330; 82803; 83605; 83735; 84100; 84484; 85014; 85018; 85025; 85610; 85730; 86703; 86706; 86803; 86850; 86900; 86901; 86920; 87040; 87070; 87086; 87340; 90715; 93005; 94002; 94003; 94770; 96374; 96375; 96376; 97162; C9113; J0295; J0610; J1100; J1170; J1630; J2060; J2250; J2270; J2370; J2405; J2543; J3010; J3370; J7030; J7050; P9016; Q9967